=== PATIENT | female | born 1945 | race Caucasian/White ===

== ENCOUNTER 2023-01-04 03:39 | Inpatient (IN) ==
[2023-01-04 04:16] LABS: iSTAT Arterial Blood Gas HCO3 24 meg/L (19-24); iSTAT Arterial Blood Gas pCO2 61 mmHg (35-46); iSTAT Arterial Blood Gas pO2 113 mmHg (80-95); iSTAT Carbon Dioxide 26 mmol/L (24-31); iSTAT Hematocrit 23 % (37-47); iSTAT Hemoglobin 7.8 g/dl (12.0-16.0); iSTAT Potassium 6.2 mmol/L (3.3-5.0); iSTAT Sodium 127 mmol/L (135-144)
--- NOTE | 2023-01-04 04:56 | Emergency Department Note ---
Impression & Plan Respiratory failure, Acute renal failure (ARF), Acute hyperkalemia, Anemia, GI bleed Admit to the [facility]ICU ED Provider Note NAME: LENI LESTER AGE: 77 SEX: F ARRIVES VIA: Ambulance INFORMANT: EMS ED PROVIDER(S): Analisa Flowers DO CHIEF COMPLAINT: Respiratory failure PLAN: Disposition: Admit to the ICU-[facility] group Condition: Critical condition MEDICAL DECISION MAKING: This is a 77-year-old female patient who presents to the emergency department in respiratory failure. The patient is a resident at [facility]. By history, it seems that she may have been diagnosed today with a pneumonia and started on doxycycline. EMS found the patient with an altered mental status and hypoxic. They began bag valve ventilations and transported her here. On presentation, patient was significantly hypoxic but responded nicely to BiPAP support. She appears to have hypercapnic/hypoxic respiratory failure. Laboratory studies reveal evidence of acute renal failure as the patient's creatinine is now 4.85 when her baseline is usually 1.6. Patient is significantly hyperkalemic with a potassium of 6.3. Patient was also found to be profoundly anemic with a hemoglobin of 6.5 when her baseline is normally at 9.4. Hemoccult testing of the stool was positive. Patient was typed and crossed for 2 units of packed red blood cells and transfusion was begun. The patient has multisystem organ involvement. I discussed the case with the [facility] Hospitalist, the SHUN from the critical care team and the senior back end java developer on-call. Triage Nursing notes reviewed and agree with them. History obtained from EMS External medical records reviewed from [facility] Vital Signs: reviewed and remarkable for tachycardia and tachypnea Differential diagnosis: Hypercarbic respiratory failure, cardiac ischemia, pneumonia, A-fib with RVR, acute renal failure, sepsis postobstructive uropathy, COVID-19, anemia ER treatment provided: surveillance system monitor IV normal saline bolus Twelve-lead EKG BiPAP to support O2 saturations greater than 90%. Transfusion of packed red blood cells IV azithromycin Diagnostics interpreted by me: ECG: Atrial flutter with a rapid ventricular response at a rate of 124. There is a poor baseline of this EKG. It is difficult to interpret Repeat ECG: Normal sinus rhythm at a rate of [address] segment elevation in leads II, 3, aVF, V5, V6-concerning for STEMI Cardiac Monitoring: Atrial fibrillation at a rate of 124 Laboratory studies: See below Imaging studies: As per my independent interpretation Portable chest x-ray: Cardiomegaly with a left lower lobe opacity consistent with pneumonia CT scan of the brain: See radiology report CT scan of the chest: See radiology report CT scan of the abdomen/pelvis: See radiology Consultation: Critical care medicine; [facility] Hospitalist; [facility] cardiology HPI: 77/F arrives for evaluation of respiratory distress. According to EMS, the patient had been diagnosed at [facility] earlier today with pneumonia and was started on doxycycline. Staff found the patient to be slightly confused and having increasing respiratory difficulty this evening. [facility] to [facility]. Upon their arrival they found the patient confused with an O2 saturation in the 60s. They began to use a BVM to ventilate the patient. PAST MEDICAL HISTORY:Atrial fibrillation, chronic kidney disease, depression, mood disorder, COPD, CHF type 2 diabetes, obesity PAST SURGICAL HISTORY:See Below FAMILY HISTORY:See Below SOCIAL HISTORY:See Below HOME MEDICATIONS:See list ALLERGIES:See list VITALS:See Below PHYSICAL EXAMINATION: General: The patient was able to answer some questions but seemed to be slightly confused. HEENT: Head - normocephalic and atraumatic. Pupils are equal, round, and reactive to light. Extraocular eye muscles are intact, and sclera are anicteric. Nose - moist nasal mucosa without discharge. Mouth - moist buccal mucosa. Oropharynx is nonerythematous and there is no tonsillar exudate or edema noted. Neck: Supple; no JVD, nuchal rigidity, cervical lymphadenopathy, or auscultated bruits. Heart: Irregularly irregular rhythm with a tachycardic rate there is a normal S1 and S2 with no murmurs, clicks, or gallops appreciated. Lungs: Diminished breath sounds at both lung bases Abdomen: Soft, completely nontender, nondistended, with good bowel sounds. There are no palpable pulsatile masses or hepatosplenomegaly. There is no guarding, rigidity, or rebound noted. Extremities: Lower extremity edema bilaterally Skin: warm and dry with good turgor and no rashes. ED COURSE: Times/Reassessments: 340 the patient was evaluated in room B1. A limited history and complete physical was performed. Patient was placed on BiPAP. Laboratory studies were drawn as above. A portable chest x-ray was obtained. A septic protocol was performed. A twelve-lead EKG was obtained. There was some concern there was a left lower lobe pneumonia as diagnosed earlier today and the patient was treated with IV azithromycin as she has multiple other allergies to antibiotics. The patient was bolused with 500 cc of normal saline solution. Her Gifford catheter was not draining and was replaced and began to drain a large amount of urine. Nursing staff attempted to contact the patient's who is her power of assistant county attorney. Patient was noted to be anemic and was typed and crossed for 2 units of packed red blood cells. Nursing staff performed a rectal exam which was Hemoccult negative. Nursing staff noted that the patient converted out of atrial fibrillation into a normal sinus rhythm so they repeated her EKG. This showed evidence of ST segment elevation in the inferior and lateral leads. I contacted Dr. Ruby from cardiology. He presented to the emergency department and ordered a bedside echocardiogram. I have personally spent greater than 120 minutes of critical care time in the direct management of this patient. This includes bedside care, interpretation of diagnostic studies, and testing, discussion with consultants, patient, and family members, and other required patient management activities. This 120 minutes is in excess of all separately billable procedures. Analisa Flowers, Past Med/Surg History Medical History Anemia Atherogenic dyslipidemia Benign essential hypertension Chronic indwelling Gifford catheter Combined systolic and diastolic congestive heart failure COPD (chronic obstructive pulmonary disease) PAF (paroxysmal atrial fibrillation) Type 2 diabetes mellitus Social History Smoking Status: Former smoker Second Hand Exposure: No; Do You Dip or Chew Tobacco: No; Hx Alcohol Use: No Hx Substance Use: No Preferred Language: Tristanian Communication Ability: Effective Beliefs That Will Affect Care: None Current Living Situation: Halfway Current Living Situation Comment: [place] Feels Safe at Home: Yes Safety Concerns: Feels Safe At This Time Assistive Devices: Glasses and Other Assistive Devices Comment: robe Allergies Allergies Allergy/AdvReac Type Severity Reaction Status Date / Time ciprofloxacin Allergy Unknown Unknown Verified 01/04/23 10:39 lorazepam Allergy Unknown Unknown Verified 01/04/23 10:39 Penicillins Allergy Unknown Unknown Verified 01/04/23 10:39 Home Meds Home Medications Medication Instructions Recorded Confirmed acetaminophen 650 mg 650 mg PO Q8H PRN Pain 01/04/23 01/04/23 tablet,extended release bisacodyl 5 mg tablet 15 mg PO HS 01/04/23 01/04/23 buprenorphine 4 mg-naloxone 1 mg 2 film sublingual DAILY 01/04/23 01/04/23 sublingual film (Suboxone) clonidine 0.1 mg/24 hr weekly 0 mg topical TID PRN Back Pain 01/04/23 01/04/23 transdermal patch dicyclomine 20 mg tablet 20 mg PO TID PRN Indigestion 01/04/23 01/04/23 diphenhydramine HCl 25 mg capsule 25 mg PO Q6H PRN Allergy Symptoms 01/04/23 01/04/23 (Benadryl) docusate sodium 100 mg capsule 100 mg PO DAILY 01/04/23 01/04/23 hydroxyzine pamoate 50 mg capsule 50 mg PO TID PRN Anxiety 01/04/23 01/04/23 (Vistaril) loratadine 10 mg tablet (Claritin) 10 mg PO DAILY PRN Allergy Symptoms 01/04/23 01/04/23 multivitamin 1 tab PO QAM 01/04/23 01/04/23 promethazine 25 mg tablet 25 mg PO Q6H PRN Pain 01/04/23 01/04/23 quetiapine 50 mg tablet (Seroquel) 75 mg PO HS 01/04/23 01/04/23 trazodone 150 mg tablet 150 mg PO HS 01/04/23 01/04/23 Results & Data (ED) Vital Signs Vital Signs - 24 hr 01/04/23 08:49 01/04/23 08:30 01/04/23 08:31 Temperature 35.4 C L Temperature Source Rectal Pulse Rate 87 86 Pulse Rate from SpO2 Sensor 86 Respiratory Rate 20 16 Blood Pressure 103/66 110/68 Blood Pressure Mean 78 82 Pulse Oximetry 93 95 01/04/23 08:31 01/04/23 08:45 01/04/23 08:46 Temperature Temperature Source Pulse Rate 86 86 Pulse Rate from SpO2 Sensor 86 87 Respiratory Rate 14 24 Blood Pressure 103/66 Blood Pressure Mean 78 Pulse Oximetry 95 95 01/04/23 08:46 01/04/23 09:00 01/04/23 09:01 Temperature 35.6 C L Temperature Source Pulse Rate 84 84 Pulse Rate from SpO2 Sensor 85 84 Respiratory Rate 27 H 16 Blood Pressure 101/64 Blood Pressure Mean 76 Pulse Oximetry 95 95 01/04/23 09:01 Temperature 35.6 C L Temperature Source Pulse Rate 94 H Pulse Rate from SpO2 Sensor 84 Respiratory Rate 21 Blood Pressure Blood Pressure Mean Pulse Oximetry 93 Laboratory Data 01/04/23 04:23 01/04/23 04:23 Lab Results 01/04/23 01/04/23 01/04/23 Range/Units 04:02 04:23 04:23 WBC 19.19 H (4.8-10.8) K/ul RBC 2.43 L (4.20-5.40) M/uL Hgb 6.5 L* (12.0-16.0) g/dl POC Hgb 7.8 L (12.0-16.0) g/dl Hct 21.3 L (37.0-47.0) % POC Hct 23 L (37-47) % MCV 87.7 (80.0-100.0) fL MCH 26.7 (25.0-34.0) pg MCHC 30.5 L (32.0-36.0) g/dL RDW Std Deviation 53.6 H (36.4-46.3) fL RDW Coeff of Denny 16.8 H (11.5-14.5) % Plt Count 570 H (130-400) K/uL MPV 9.7 (9.4-12.4) fL Immature Gran % (Auto) 4.5 % Neut % (Auto) 88.6 % Lymph % (Auto) 2.6 % [place] % (Auto) 4.2 % Eos % (Auto) 0.0 % Baso % (Auto) 0.1 % Neut # (Auto) 17.01 H (1.40-6.50) K/uL Lymph # (Auto) 0.50 L (1.2-3.4) K/uL [place] # (Auto) 0.80 H (0.11-0.59) K/uL Eos # (Auto) 0.00 (0-0.50) K/uL Baso # (Auto) 0.01 (0-0.2) K/uL Immature Gran # (Auto) 0.87 H (0.01-0.20) K/uL Absolute Nucleated RBC 0.30 H (0-0.12) K/uL Nucleated RBC % (auto) 1.6 % Hypochromasia Present Echinocytes 1+ PT (9.0-12.0) Seconds INR (0.9-1.1) APTT (21.0-31.0) Seconds PTT Ratio POC pH 7.20 L (7.35-7.45) POC pCO2 61 H (35-46) mmHg POC pO2 113 H (80-95) mmHg POC HCO3 24 (19-24) terry/L POC Total CO2 26 (24-31) mmol/L POC Base Excess -4.0 (-9-1.8) terry/L POC ABG O2 Sat 97.0 H (90-95) % POC Sodium 127 L (135-144) mmol/L Sodium 129 L (136-145) mmol/L POC Potassium 6.2 H* (3.3-5.0) mmol/L Potassium 6.3 H* (3.5-5.1) mmol/L Chloride 91 L (98-107) mmol/L Carbon Dioxide 23 (21-32) mmol/L Anion Gap 15 H (3-11) BUN 138 H (6-23) mg/dl Creatinine 4.85 H* (0.6-1.2) mg/dl Est Cr Clr Drug Dosing Not Reportable Est GFR ( Amer) 9.2 ml/min Est GFR (Non-Af Amer) 7.9 ml/min BUN/Creatinine Ratio 28.5 H (10-20) Glucose 151 H (70-99(Fasting)) mg/dl Lactate (0.4-2.0) mmol/L Calcium 9.0 (8.5-10.1) mg/dl Total Bilirubin 0.7 (0.2-1.0) mg/dl AST 399 H (13-39) U/L ALT 1041 H (7-52) U/L Alkaline Phosphatase 219 H (34-104) U/L Troponin I High Sens 16.9 H (0-14) pg/ml Total Protein 8.0 (6.0-8.3) gm/dl Albumin 3.6 (3.4-5.0) gm/dl Globulin 4.4 H (2.5-4.0) gm/dl Albumin/Globulin Ratio 0.8 L (0.9-2) Urine Color Urine Appearance (Clear) Urine pH (4.5-7.5) Ur Specific [place] (1.000-1.030) Urine Protein (Negative) Urine Glucose (UA) (Negative) Urine Ketones (Negative) Urine Blood (Negative) Urine Nitrite (Negative) Urine Bilirubin (Negative) Urine Urobilinogen (Negative) Ur Leukocyte Esterase (Negative) Urine WBC (Auto) (0-5) /hpf Urine RBC (Auto) (0-4) /hpf U Hyaline Cast (Auto) (0-5) /lpf U Epithel Cells (Auto) (0-5) /lpf Urine Bacteria (Auto) (Negative) Urine Yeast (None Prsent) SARS-CoV-2 (PCR) (Negative) Influenza Type A (PCR) (Neg) Influenza Type B (PCR) (Neg) RSV (RT-PCR) (Neg) Blood Type Blood Type Recheck Antibody Screen Crossmatch 01/04/23 01/04/23 01/04/23 Range/Units 04:23 04:26 04:41 WBC (4.8-10.8) K/ul RBC (4.20-5.40) M/uL Hgb (12.0-16.0) g/dl POC Hgb (12.0-16.0) g/dl Hct (37.0-47.0) % POC Hct (37-47) % MCV (80.0-100.0) fL MCH (25.0-34.0) pg MCHC (32.0-36.0) g/dL RDW Std Deviation (36.4-46.3) fL RDW Coeff of Denny (11.5-14.5) % Plt Count (130-400) K/uL MPV (9.4-12.4) fL Immature Gran % (Auto) % Neut % (Auto) % Lymph % (Auto) % [place] % (Auto) % Eos % (Auto) % Baso % (Auto) % Neut # (Auto) (1.40-6.50) K/uL Lymph # (Auto) (1.2-3.4) K/uL [place] # (Auto) (0.11-0.59) K/uL Eos # (Auto) (0-0.50) K/uL Baso # (Auto) (0-0.2) K/uL Immature Gran # (Auto) (0.01-0.20) K/uL Absolute Nucleated RBC (0-0.12) K/uL Nucleated RBC % (auto) % Hypochromasia Echinocytes PT 13.3 H (9.0-12.0) Seconds INR 1.3 H (0.9-1.1) APTT 32.8 H (21.0-31.0) Seconds PTT Ratio 1.2 POC pH (7.35-7.45) POC pCO2 (35-46) mmHg POC pO2 (80-95) mmHg POC HCO3 (19-24) terry/L POC Total CO2 (24-31) mmol/L POC Base Excess (-9-1.8) terry/L POC ABG O2 Sat (90-95) % POC Sodium (135-144) mmol/L Sodium (136-145) mmol/L POC Potassium (3.3-5.0) mmol/L Potassium (3.5-5.1) mmol/L Chloride (98-107) mmol/L Carbon Dioxide (21-32) mmol/L Anion Gap (3-11) BUN (6-23) mg/dl Creatinine (0.6-1.2) mg/dl Est Cr Clr Drug Dosing Est GFR ( Amer) ml/min Est GFR (Non-Af Amer) ml/min BUN/Creatinine Ratio (10-20) Glucose (70-99(Fasting)) mg/dl Lactate 1.1 (0.4-2.0) mmol/L Calcium (8.5-10.1) mg/dl Total Bilirubin (0.2-1.0) mg/dl AST (13-39) U/L ALT (7-52) U/L Alkaline Phosphatase (34-104) U/L Troponin I High Sens (0-14) pg/ml Total Protein (6.0-8.3) gm/dl Albumin (3.4-5.0) gm/dl Globulin (2.5-4.0) gm/dl Albumin/Globulin Ratio (0.9-2) Urine Color Urine Appearance (Clear) Urine pH (4.5-7.5) Ur Specific [place] (1.000-1.030) Urine Protein (Negative) Urine Glucose (UA) (Negative) Urine Ketones (Negative) Urine Blood (Negative) Urine Nitrite (Negative) Urine Bilirubin (Negative) Urine Urobilinogen (Negative) Ur Leukocyte Esterase (Negative) Urine WBC (Auto) (0-5) /hpf Urine RBC (Auto) (0-4) /hpf U Hyaline Cast (Auto) (0-5) /lpf U Epithel Cells (Auto) (0-5) /lpf Urine Bacteria (Auto) (Negative) Urine Yeast (None Prsent) SARS-CoV-2 (PCR) NEGATIVE (Negative) Influenza Type A (PCR) Negative (Neg) Influenza Type B (PCR) Negative (Neg) RSV (RT-PCR) Negative (Neg) Blood Type Blood Type Recheck Antibody Screen Crossmatch 01/04/23 01/04/23 01/04/23 Range/Units 05:10 05:15 05:27 WBC (4.8-10.8) K/ul RBC (4.20-5.40) M/uL Hgb (12.0-16.0) g/dl POC Hgb (12.0-16.0) g/dl Hct (37.0-47.0) % POC Hct (37-47) % MCV (80.0-100.0) fL MCH (25.0-34.0) pg MCHC (32.0-36.0) g/dL RDW Std Deviation (36.4-46.3) fL RDW Coeff of Denny (11.5-14.5) % Plt Count (130-400) K/uL MPV (9.4-12.4) fL Immature Gran % (Auto) % Neut % (Auto) % Lymph % (Auto) % [place] % (Auto) % Eos % (Auto) % Baso % (Auto) % Neut # (Auto) (1.40-6.50) K/uL Lymph # (Auto) (1.2-3.4) K/uL [place] # (Auto) (0.11-0.59) K/uL Eos # (Auto) (0-0.50) K/uL Baso # (Auto) (0-0.2) K/uL Immature Gran # (Auto) (0.01-0.20) K/uL Absolute Nucleated RBC (0-0.12) K/uL Nucleated RBC % (auto) % Hypochromasia Echinocytes PT (9.0-12.0) Seconds INR (0.9-1.1) APTT (21.0-31.0) Seconds PTT Ratio POC pH (7.35-7.45) POC pCO2 (35-46) mmHg POC pO2 (80-95) mmHg POC HCO3 (19-24) terry/L POC Total CO2 (24-31) mmol/L POC Base Excess (-9-1.8) terry/L POC ABG O2 Sat (90-95) % POC Sodium (135-144) mmol/L Sodium (136-145) mmol/L POC Potassium (3.3-5.0) mmol/L Potassium (3.5-5.1) mmol/L Chloride (98-107) mmol/L Carbon Dioxide (21-32) mmol/L Anion Gap (3-11) BUN (6-23) mg/dl Creatinine (0.6-1.2) mg/dl Est Cr Clr Drug Dosing Est GFR ( Amer) ml/min Est GFR (Non-Af Amer) ml/min BUN/Creatinine Ratio (10-20) Glucose (70-99(Fasting)) mg/dl Lactate (0.4-2.0) mmol/L Calcium (8.5-10.1) mg/dl Total Bilirubin (0.2-1.0) mg/dl AST (13-39) U/L ALT (7-52) U/L Alkaline Phosphatase (34-104) U/L Troponin I High Sens (0-14) pg/ml Total Protein (6.0-8.3) gm/dl Albumin (3.4-5.0) gm/dl Globulin (2.5-4.0) gm/dl Albumin/Globulin Ratio (0.9-2) Urine Color Dark Yellow Urine Appearance Cloudy A (Clear) Urine pH 5.5 (4.5-7.5) Ur Specific [place] 1.015 (1.000-1.030) Urine Protein 1+ H (Negative) Urine Glucose (UA) Negative (Negative) Urine Ketones Negative (Negative) Urine Blood 3+ H (Negative) Urine Nitrite Negative (Negative) Urine Bilirubin Negative (Negative) Urine Urobilinogen Negative (Negative) Ur Leukocyte Esterase 2+ H (Negative) Urine WBC (Auto) >30 H (0-5) /hpf Urine RBC (Auto) 10-30 H (0-4) /hpf U Hyaline Cast (Auto) 5-10 H (0-5) /lpf U Epithel Cells (Auto) 0-5 (0-5) /lpf Urine Bacteria (Auto) 1+ H (Negative) Urine Yeast Budding w/ Hyphae A (None Prsent) SARS-CoV-2 (PCR) (Negative) Influenza Type A (PCR) (Neg) Influenza Type B (PCR) (Neg) RSV (RT-PCR) (Neg) Blood Type B Positive Blood Type Recheck B Positive Antibody Screen NEGATIVE Crossmatch See Detail Administered Medications Pantoprazole Sodium 40 mg/ (Dextrose) 100 mls @ 20 mls/hr IV Q5H [facility]SIE Stop: 02/03/23 11:29 Last Admin: 01/05/23 09:13 Dose: 8 mg/hr, 20 mls/hr Documented By: Admin: 01/05/23 05:29 Dose: 20 mls/hr Documented By: Infusion: 01/05/23 05:15 Dose: 8 mg/hr, 20 mls/hr Documented By: Admin: 01/04/23 23:15 Dose: 8 mg/hr, 20 mls/hr Documented By: Infusion: 01/04/23 22:33 Dose: 8 mg/hr, 20 mls/hr Documented By: Admin: 01/04/23 17:33 Dose: 8 mg/hr, 20 mls/hr Documented By: Infusion: 01/04/23 17:33 Dose: 8 mg/hr, 20 mls/hr Documented By: Admin: 01/04/23 12:44 Dose: 8 mg/hr, 20 mls/hr Documented By: LIBBY Azithromycin 500 mg/ Dextrose 255 mls @ 125 mls/hr IV Q24H [facility] Stop: 01/08/23 07:59 Last Admin: 01/05/23 09:13 Dose: 125 mls/hr Documented By: LIBBY Daptomycin 500 mg/ Syringe 10 mls @ 5 mls/min IV Q48H CH[facility]ISSIE; Protocol Stop: 01/14/23 11:59 Last Admin: 01/04/23 13:17 Dose: 5 mls/min Documented By: LIBBY Cefepime HCl 500 mg/ Syringe 5 mls @ 5 mls/min IV Q24H [facility]ISSIE; Protocol Stop: 01/15/23 08:59 Last Admin: 01/05/23 09:13 Dose: 5 mls/min Documented By: LIBBY Insulin Aspart (Insulin Aspart Per Unit) 0 units SC Q6 [facility] Stop: 02/03/23 11:59 Last Admin: 01/05/23 05:55 Dose: Not Given Documented By: Admin: 01/05/23 00:04 Dose: Not Given Documented By: Admin: 01/04/23 19:25 Dose: Not Given Documented By: Admin: 01/04/23 13:23 Dose: 3 units Documented By: LIBBY Co-signed By: MAGGIE Discontinued Medications Dextrose (Dextrose 50% 50 Ml Syringe) 50 ml IV NOW STA Stop: 01/04/23 09:13 Last Admin: 01/04/23 09:36 Dose: 50 ml Documented By: MARIO Azithromycin 500 mg/ Dextrose 255 mls @ 125 mls/hr IV ONE ONE Stop: 01/04/23 07:35 Last Infusion: 01/04/23 09:58 Dose: 0 mls/hr Documented By: Admin: 01/04/23 06:05 Dose: 125 mls/hr Documented By: KELLIE Insulin Human Regular 10 units (/ Syringe) 9.9 mls @ 3 mls/sec IV NOW ONE Stop: 01/04/23 09:46 Last Admin: 01/04/23 09:58 Dose: 3 mls/sec Documented By: MARIO Co-signed By: FREDY Cefepime HCl (Maxipime) 20 mls @ 5 mls/min IV NOW STA; Protocol Stop: 01/04/23 10:19 Last Admin: 01/04/23 10:26 Dose: 5 mls/min Documented By: MARIO Sodium Chloride (Nss 1000ml) 1,000 mls @ 100 mls/hr IV .Q10H [facility]E Stop: 01/05/23 00:23 Last Infusion: 01/05/23 07:11 Dose: 0 mls/hr Documented By: Admin: 01/04/23 23:15 Dose: 100 mls/hr Documented By: Infusion: 01/04/23 23:15 Dose: 100 mls/hr Documented By: Admin: 01/04/23 16:18 Dose: 100 mls/hr Documented By: Admin: 01/04/23 12:14 Dose: Not Given Documented By: LIBBY Calcium Gluconate 1,000 mg/ (Dextrose) 60 mls @ 240 mls/hr IV NOW ONE Stop: 01/04/23 10:44 Last Infusion: 01/04/23 11:49 Dose: 0 mls/hr Documented By: Admin: 01/04/23 11:18 Dose: 240 mls/hr Documented By: LIBBY Pantoprazole Sodium 80 mg/ (Dextrose) 120 mls @ 480 mls/hr IV TODAY@1115 [facility] Stop: 01/04/23 11:29 Last Infusion: 01/04/23 13:54 Dose: 0 mls/hr Documented By: Admin: 01/04/23 12:27 Dose: 480 mls/hr Documented By: LIBBY Sodium Chloride (Nss 1000ml) 250 mls @ 999 mls/hr IV .Q16M ONE Stop: 01/04/23 19:03 Last Infusion: 01/04/23 19:33 Dose: 0 mls/hr Documented By: Admin: 01/04/23 19:10 Dose: 999 mls/hr Documented By: LIBBY Insulin Aspart (Insulin Aspart Per Unit) 0 units SC 0000,0400 [facility] Stop: 01/05/23 04:01 Last Admin: 01/05/23 00:05 Dose: Not Given Documented By: SILVESTRE Insulin Glargine (Lantus Per Unit Charge) 10 units SQ NOW ONE Stop: 01/04/23 13:01 Last Admin: 01/04/23 13:25 Dose: 10 units Documented By: LIBBY Co-signed By: MAGGIE Insulin Human Regular (Novolin-R Insulin Per Unit Charge) Confirm Administered Dose 10 units .ROUTE .STK-MED ONE Stop: 01/04/23 09:35 Last Admin: 01/04/23 09:37 Dose: Not Given Documented By: MARIO Metoprolol Tartrate (Metoprolol Tartrate 1 Mg/Ml Vial) 5 mg IV NOW STA Stop: 01/05/23 07:40 Last Admin: 01/05/23 07:48 Dose: 5 mg Documented By: LIBBY Miscellaneous (Patient's Height &/Or Weight Needed) 1 each N/A Q2H [facility] Stop: 02/03/23 11:14 Last Admin: 01/04/23 14:42 Dose: 1 each Documented By: LCS Discharge Plan Visit Data Chief Complaint: Respiratory Distress ED Provider: Analisa Flowers Discharge Problem: Respiratory failure, Acute renal failure (ARF), Acute hyperkalemia, Anemia, GI bleed Patient Disposition: Admitted As Inpatient Discharge Instructions Interventions: ED Discharge Assessment Last Done: 01/04/23 11:00 Respiratory failure Qualifiers: Chronicity: acute Respiratory failure complication: hypoxia and hypercapnia Qualified Code(s): J96.01 - Acute respiratory failure with hypoxia Acute renal failure (ARF) Qualifiers: Acute renal failure type: unspecified Qualified Code(s): N17.9 - Acute kidney failure, unspecified Anemia Qualifiers: Anemia type: unspecified type Qualified Code(s): D64.9 - Anemia, unspecified GI bleed Qualifiers: GI bleed type/associated pathology: unspecified gastrointestinal hemorrhage type Qualified Code(s): K92.2 - Gastrointestinal hemorrhage, unspecified
[2023-01-04 05:01] LABS: Basophils # (auto) 0.01 K/uL (0-0.2); Basophils % (auto) 0.1 %; Echinocytes 1+; Hematocrit (blood only) 21.3 % (37.0-47.0); Hemoglobin 6.5 g/dl (12.0-16.0); Hypochromasia Present; Immature Granulocytes # (auto) 0.87 K/uL (0.01-0.20); Immature Granulocytes % (auto) 4.5 %; Lymphocytes % (auto) 2.6 %; Mean Corpuscular Hemoglobin 26.7 pg (25.0-34.0); Mean Corpuscular Hgb Conc 30.5 g/dL (32.0-36.0); Mean Corpuscular Volume 87.7 fL (80.0-100.0); Mean Platelet Volume 9.7 fL (9.4-12.4); Monocytes % (auto) 4.2 %; Neutrophils # (auto) 17.01 K/uL (1.40-6.50); Neutrophils % (auto) 88.6 %; Nucleated RBC % (auto) 1.6 %; Platelet Count 570 K/uL (130-400); RDW Coefficient of Variation 16.8 % (11.5-14.5); RDW Standard Deviation 53.6 fL (36.4-46.3); Red Blood Count 2.43 M/uL (4.20-5.40); White Blood Count 19.19 K/ul (4.8-10.8)
[2023-01-04] MEDS ORDERED: SODIUM CHLORIDE 0.9% 250 ML IV PRN (05:10)
[2023-01-04 05:17] LABS: Alanine Aminotransferase 1041 U/L (7-52); Albumin Globulin Ratio 0.8 (0.9-2); Albumin Level 3.6 gm/dl (3.4-5.0); Alkaline Phosphatase 219 U/L (34-104); Anion Gap 15 (3-11); Aspartate Aminotransferase 399 U/L (13-39); BUN Creatinine Ratio 28.5 (10-20); Bilirubin,Total 0.7 mg/dl (0.2-1.0); Blood Urea Nitrogen 138 mg/dl (6-23); Carbon Dioxide 23 mmol/L (21-32); Chloride 91 mmol/L (98-107); Est GFR (African American) 9.2 ml/min; Est GFR (Non-African American) 7.9 ml/min; Globulin 4.4 gm/dl (2.5-4.0); Glucose 151 mg/dl (70-99(Fasting)); Potassium 6.3 mmol/L (3.5-5.1); Sodium 129 mmol/L (136-145); Troponin I High Sensitivity 16.9 pg/ml (0-14)
[2023-01-04 05:24] LABS: Appearance Urine Cloudy (Clear); Bacteria Urine Automated 1+ (Negative); Bilirubin Urine Negative (Negative); Blood Urine 3+ (Negative); Color Urine Dark Yellow; Epithelial Cell Urine Auto 0-5 /lpf (0-5); Glucose Urine UA Negative (Negative); Ketones Urine Negative (Negative); Leukocyte Esterase Urine 2+ (Negative); Nitrite Urine Negative (Negative); Protein Urine 1+ (Negative); Specific Gravity Urine 1.015 (1.000-1.030); Urobilinogen Urine Negative (Negative); WBC Urine Automated >30 /hpf (0-5); pH Urine 5.5 (4.5-7.5)
[2023-01-04] MEDS ORDERED: AZITHROMYCIN 500 MG in DEXTROSE 5% 250 ML IV ONE (05:33)
[2023-01-04 06:07] LABS: Influenza A virus by PCR Negative (Neg); Influenza B virus by PCR Negative (Neg); RSV by PCR Negative (Neg); SARS CoV2 RNA(COVID-19) Ceph NEGATIVE (Negative)
--- NOTE | 2023-01-04 07:58 | CT Scan Report ---
CT head/brain wo con CLINICAL HISTORY: altered ms Technique: Contiguous axial CT images of the head were acquired from the base of the skull to the ines patricia without intravenous contrast administration. Images were viewed in brain, subdural and bone [facility]. Automated dose lowering techniques and/or adjustment according to patient size were utilized for this exam. Comparison: None available at the time of this dictation. Findings: Exam is limited by patient motion. Areas of decreased attenuation are present in the periventricular and subcortical white matter bilaterally consistent with small vessel ischemic disease. Generalized c erebral atrophy with commensurate enlargement of the ventricles, sulci, and cisterns is also present. There is no acute intracranial hemorrhage or evidence of acute territorial infarction. No shift of t he midline structures, mass effect, or extra-axial abnormalities are shown. Atherosclerotic calcific ations are present in the intracranial segments of the internal carotid arteries. Imaged portions of the paranasal sinuses and mastoid air cells are clear. The orbits appear normal. There are no acute fractures of the calvaria. Scalp swelling is seen in the left frontal soft tissue s. Impression: No acute intracranial hemorrhage or skull fractures. Scalp swelling is seen in the left frontal soft tissues. ACT 112: Negative or not required by law. Electronically signed by: Renny Mccall M.D. 01/04/2023 7:57 AM
--- NOTE | 2023-01-04 08:10 | CT Scan Report ---
CT chest diagnostic wo con CLINICAL HISTORY: Respiratory Failure TECHNIQUE: Multidetector row helical CT of the chest was performed. Coronal and sagittal reformations were obtained. Automated dose lowering techniques and/or adjustment according to patient size were u tilized for this exam. Comparison: None available at the time of this dictation. FINDINGS: Lungs and pleura: Atelectasis is seen most prominent in the left lower lobe. There is a 3 mm nodule i n the left upper lobe (series 10 image 82). Heart and pericardium: Mitral annular calcifications are seen. There is a small pericardial effusion. Vessels: The pulmonary trunk is enlarged measuring 38 mm. Mild atherosclerotic disease is seen. Mediastinum and coby: Subcentimeter lymph nodes are seen. Chest wall and lower neck: Unremarkable. Abdomen: Unremarkable. Bones: Degenerative changes in the thoracic spine. IMPRESSION: 1. Atelectasis is seen with near collapse of the left lower lobe. 2. Cardiomegaly and pulmonary hypertension. ACT 112: Negative or not required by law. Electronically signed by: Renny Mccall M.D. 01/04/2023 8:08 AM
--- NOTE | 2023-01-04 08:18 | CT Scan Report ---
CT abd pelvis wo con CLINICAL HISTORY: renal failure TECHNIQUE: Helical axial images of the abdomen and pelvis were obtained. Automated dose lowering tech niques and/or adjustment according to patient size were utilized for this exam. This exam was perfor med without intravenous contrast. CT DOSE: 3140.52 mGy.cm COMPARISON: None available at the time of this dictation. FINDINGS: Lower chest: For findings above the diaphragm, please see CT chest performed same day. Liver: Unremarkable. No focal lesions are seen. Gallbladder and biliary tree: No calcified gallstones. Normal caliber wall. No intra- or extrahepatic biliary ductal dilation. Pancreas: Unremarkable, no focal lesions. Spleen: Unremarkable. Adrenals: Unremarkable. Kidneys and ureters: There is a 4 mm stone in the right proximal ureter. No significant hydronephrosi s is seen, there is mild prominence of the proximal ureter. Nonobstructive stones are seen bilaterall y. Bladder: Gifford catheter is seen. Reproductive organs: Unremarkable. Bowel: Diverticulosis is seen without evidence of diverticulitis. Lymph nodes Retroperitoneal: Subcentimeter lymph nodes are noted. Pelvic: Unremarkable. Mesenteric: Unremarkable. Peritoneum: Normal. Vessels: Atherosclerotic calcifications are seen. Abdominal wall: Right fat-containing inguinal hernia. Bones: Degenerative changes in the visualized spine. IMPRESSION: Stone in the right proximal ureter measuring 4 mm. There may be a small amount of hydroureter however no hydronephrosis is seen. Nonobstructive nephrolithiasis is otherwise noted. ACT 112: Negative or not required by law. Electronically signed by: Renny Mccall M.D. 01/04/2023 8:16 AM
--- NOTE | 2023-01-04 08:31 | Cardiology Consultation ---
Date of Consultation January 04, 2023 Assessment & Plan (1) Abnormal EKG: Initial abnormality was atrial flutter with variable block or A-fib coarse. No ischemic changes. Despite this going on for many hours her troponin is just above upper cutoff of normal. Do not have any follow-up troponin levels at this point. All 3 of her EKGs were performed after conversion to sinus rhythm show borderline ST elevations in leads I, 2, aVF, with the initial copies also demonstrating similar borderline elevations in V4 through V6. There are no reciprocal ischemic EKG changes. The final EKG also lacks any significant ST elevations in the precordial leads. There is slight NE depression as well. Taken as a whole, there is no evolution in the EKG which is suggestive that this represents an acute ST elevation MA. She has a number of potential reasons for these changes including hyperkalemia, potentially FLOOR SWEEPER pathology, acid-base imbalance, profound anemia and what ever baseline cardiac problems exist (we do not have old EKGs for comparison). She is currently hemodynamically stable. She has a number of contraindications to cardiac catheterization at this time. Therefore, I will abstain from aggressive management with cardiac catheterization unless she develops cardiogenic shock, significantly worsened ST elevations, or refractory ventricular arrhythmia. We should try to obtain outside cardiac records. A stat echocardiogram was ordered so that we may better understand her EF, wall motion, etc. It seems her clinical presentation is most related to sepsis and hypoxia. As these things improve we will continue to reassess for possible catheterization. (2) Acute respiratory failure: Unclear etiology. Could be pneumonia, heart failure, COPD exacerbation, sepsis, etc. Treatment per pulmonary/critical care medicine. (3) Acute alteration in mental status: Unclear etiology at this point. Await CT scan results. Likely metabolic derangement and sepsis. Treatment per primary team. (4) Acute on chronic combined systolic (congestive) and diastolic (congestive) heart failure: My physical exam I do not appreciate significant amount of volume overload. Certainly could be some in the lungs but she does not have any right-sided symptoms such as JVD or lower extremity edema. Echocardiogram is pending. I will have additional recommendations pending results. Regardless of her volume status, if we believe she is septic we will need to give her fluid and then work to remove that fluid later if necessary. Hold her chronic heart failure medications at this time so as not to compromise her hemodynamic status (Toprol- XL 25 mg daily and Lasix 40 mg daily). She also takes Jardiance 10 mg. This could be given if primary team would like but I do not feel it acutely needs to be given at this time. (5) Acute on chronic renal failure: Not sure what her baseline renal function may be. We will need to obtain the records to determine that. Clearly, with hyperkalemia and elevated BUN and creatinine. If she does have some volume overload in the lungs this may also be secondary to her renal function. Alternatively, if her EF is severely reduced on echocardiogram then worsening renal function may be secondary to poor renal perfusion. Avoid nephrotoxic agents. If she is felt to be hypovolemic or hypotensive (sepsis, bleed, etc.) then IV fluid resuscitation (6) PAF (paroxysmal atrial fibrillation): Now in sinus rhythm. She takes the Xarelto for CVA prophylaxis. Would hold that at this time secondary to profound anemia and potential GI bleed. (7) Anemia: H&H are very low. She does have risk factor for bleed not only GI but potentially intracranial. However, she does not seem to have focal neurologic deficits at this time. CT of the head is pending. Plan is for transfusion. (8) Elevated liver enzymes: This may be secondary to congestion or hypotension. Work-up and management per primary team. (9) Chronic indwelling Gifford catheter: Urinalysis is concerning for infection. However, the Gifford is reported to be chronic. I assume blood cultures will be obtained as well urine culture. Treatment per primary team. (10) Benign essential hypertension: Currently blood pressure is stable and normal. She did have mild hypotension but seems to have responded to some IV fluids. Would not initiate her regular antihypertensive regimen at this time. 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 She is high risk. High intensity statin therapy is recommended. I do not note any statin therapy on her outpatient medication list. Unclear if she has had intolerance or if she declines. Obviously not an acute issue and we will address it as her clinical course evolves. (12) Type 2 diabetes mellitus: Certainly contributes to any metabolic derangement and makes management more difficult. Also makes her high risk for underlying atherosclerosis, renal failure, etc. Treatment per primary team. Plan At this time patient has multiple acute on chronic issues and is not doing well. Awaiting echocardiogram. If there are high risk features including profound reduction in ejection fraction, severe valvular heart disease, or significant wall motion abnormalities then I will be more inclined to cath early rather than later. However, if not then the risk of catheterization with her contrain dications seems to outweigh the anticipated benefit. I will continue to follow her EKG and troponins which may alter my clinical plan in the near future. History of Present Illness Reason for Consultation: Abnormal EKG Requesting Physician: Nadiya Flowers History of Present Illness 77-year-old female from [facility] who presented with respiratory failure and mental status change. Unfortunately, we have very limited medical records on this patient and her mental status precludes detailed review via the patient. Evidently, patient has a history of systolic and diastolic heart failure, COPD on chronic O2, atrial fibrillation, dementia, anemia, and chronic kidney disease. Unclear regarding her prior cardiac work-up at this time. She does not seem to have been evaluated for those issues in this health system and [facility] with any [facility] studies. She previously was followed in the [facility] and likely has medical records with [facility]. Regarding this admission, patient has been experiencing increasing shortness of breath and decreased mental status. She was found to have an oxygen saturation of less than 70% and was started on increased O2 concentration. Eventually, she was on 15 L of nasal cannula oxygen and her O2 increased to 90%. She had a chest x-ray suggesting pneumonia, pleural effusion, and atelectasis. She had been placed on antibiotics as an outpatient. However, her clinical status continued to decline. She was therefore transported to the emergency department in this facility. Here, she was placed on BiPAP. She was found to be in atrial flutter with variable AV block. She had profound anemia, elevated white blood cell count, acute on chronic renal failure, hyperkalemia, elevated liver enzymes, and significant mental status changes. Resuscitative measures have been initiated and the patient has just returned from the CAT scanner where she had a scan of her head, chest, abdomen and pelvis. I was asked to see her because her initial atrial arrhythmia converted to sinus rhythm. On that EKG she had borderline diffuse ST elevations with mild NE depressions and question was if she needed heart catheterization for possible acute MA. After she returned to the emergency department bay from the CAT scanner her mental status seemed to be somewhat improved although she was very somnolent. I asked her if she had any chest discomfort and she said no. I asked her if she was short of breath and she said yes. I asked her if that had been going on for several days and she said no. However, when I asked her if she had prior cardiac problems she did not answer and was asleep again. I asked to obtain another EKG to see if there was any evolution of her borderline EKG changes. Patient History Social History Smoking Status: Unknown if ever smoked Preferred Language: [place] Review of Systems Review of Systems: This is unobtainable because of her mental status change. What is reviewed was obtained via the chart and the questions she was able to verbalize answers to. Physical Exam Constitutional: Elderly morbidly obese chronically ill-appearing female. Eyes: Opens them on command but then closes. Anicteric. ENMT: Facemask in place. Neck: Short, thick, no JVD appreciated. Respiratory: Poor air movement. Diffuse crackles. No wheezing. Cardiovascular: Regular rate and rhythm. S4 gallop. Soft systolic murmur. No edema. Gastrointestinal (Abdomen): Normal active bowel sounds Musculoskeletal: No cyanosis or edema. Skin: Scattered ecchymosis. Pale. Neurologic: Decreased mental status. Does move all 4 extremities voluntarily. Psychiatric: Unable to be assessed. She is somnolent. Results & Data ([facility]) Vital Signs (Past 12 Hours) Vital Signs Temp Pulse Resp BP Pulse Ox O2 Del Method FiO2 01/04/23 08:15 89 18 93 01/04/23 08:14 134/54 L 01/04/23 08:14 88 18 01/04/23 08:01 29 H 94 01/04/23 08:01 135/61 01/04/23 08:00 22 94 01/04/23 07:45 88 19 94 01/04/23 07:45 111/79 01/04/23 07:31 22 95 01/04/23 07:31 129/73 01/04/23 07:30 20 94 01/04/23 07:47 35.9 C L 86 19 111/79 96 01/04/23 07:17 93 H 21 95 01/04/23 07:17 156/116 H 01/04/23 07:15 95 01/04/23 07:14 92 H 17 01/04/23 06:46 87 21 94 01/04/23 06:46 128/97 01/04/23 06:45 88 20 95 01/04/23 07:17 92 H 21 93 45 01/04/23 06:31 99 H 21 94 01/04/23 06:31 99/54 L 01/04/23 06:30 94 H 19 92 01/04/23 06:16 89 21 94 01/04/23 06:16 131/96 01/04/23 06:15 90 26 H 93 01/04/23 06:01 110/80 01/04/23 06:01 64 26 H 92 01/04/23 06:00 96 H 21 93 01/04/23 06:05 87 01/04/23 05:49 104 H 25 H 92 01/04/23 05:49 115/75 01/04/23 05:46 138 H 28 H 94 01/04/23 05:31 120 H 26 H 102/73 94 01/04/23 05:16 126/69 01/04/23 05:16 128 H 25 H 94 01/04/23 05:01 139 H 26 H 98 01/04/23 05:01 109/60 01/04/23 05:00 129 H 22 01/04/23 04:46 124 H 26 H 96 BiPAP 01/04/23 04:46 140/95 01/04/23 03:50 120 H 28 H 97 60 01/04/23 04:30 108 H 29 H 99 BiPAP 01/04/23 04:29 142 H 29 H 99 BiPAP 01/04/23 04:29 120/79 01/04/23 04:15 141 H 22 99 BiPAP 01/04/23 04:00 125 H 30 H 99 BiPAP 01/04/23 04:00 101/80 01/04/23 04:02 100 BiPAP 01/04/23 03:45 118 H 27 H 99 BiPAP 01/04/23 03:45 112/70 01/04/23 04:00 36.3 C L 01/04/23 03:53 137 H 01/04/23 03:46 125 H 25 H 112/70 88 L Room Air PG Care Time/CCT Total # of Minutes Spent Total Time Spent with Patient: Total time spent is greater than 50% in coordination of care (as documented) at patient's floor/unit and/or counseling patient: Note: I have spent 120 minutes in the review of the records, examination of the patient, discussion with patient and the care team, formulation and implementation of a plan of care and all associated documentation. [place] [address] CRITICAL CARE 1ST 30-74M Patient Type New Diagnoses Abnormal EKG R94.31 Acute respiratory failure J96.00 Acute alteration in mental status R41.82 Acute on chronic combined systolic (congestive) and diastolic (congestive) heart failure I50.43 Acute on chronic renal failure N17.9; N18.9 PAF (paroxysmal atrial fibrillation) I48.0 Anemia D64.9 Elevated liver enzymes R74.8 Chronic indwelling Gifford catheter Z97.8 Benign essential hypertension I10 Atherogenic dyslipidemia E78.5 Type 2 diabetes mellitus E11.9 Time Spent (min) 120
--- NOTE | 2023-01-04 08:49 | XRay Report ---
XR chest 1V portable CLINICAL HISTORY: Dyspnea TECHNIQUE: Single frontal radiograph of the chest was obtained. Comparison: None available at the time of this dictation. FINDINGS: No lines and tubes are seen. Cardiomegaly is noted. There is a left retrocardiac opacity and small ri ght lower lung opacity. No evidence of pleural effusion or pneumothorax. IMPRESSION: Bilateral lower lung airspace opacities compatible with atelectasis. ACT 112: Negative or not required by law. Electronically signed by: Renny Mccall M.D. 01/04/2023 8:46 AM
[2023-01-04] MEDS ORDERED: DEXTROSE 50% 50 ML SYRINGE IV STA (09:12)
[2023-01-04] MEDS ORDERED: VANCOMYCIN CONSULT ACTIVE PRN (09:32)
[2023-01-04] MEDS ORDERED: VANCOMYCIN HCL 1,750 MG in SODIUM CHLORIDE 0.9% 500 ML IV ONE (09:32)
[2023-01-04] MEDS ORDERED: NovoLIN-R INSULIN PER UNIT CHARGE ONE (09:34)
[2023-01-04] MEDS ORDERED: INSULIN HUMAN REGULAR PER UNIT 10 UNITS in SYRINGE 9.9 ML IV ONE (09:45)
--- NOTE | 2023-01-04 10:03 | History & Physical Report ---
Date of Service January 04, 2023 Assessment & Plan (1) Acute and chronic respiratory failure with hypoxia: Plan: Patient is on 2 L nasal cannula at baseline, with a history of COPD Presents with worsening shortness of breath, had been on doxycycline for possible pneumonia at outside facility prior to arrival here With hypoxia requiring ultimately BiPAP, with a pH of 7.2 and hypercarbia PCO2 61 CT noncon of the chest shows atelectasis with near collapse of the left lower lobe, no other acute findings Repeat ABG with improvement in CO2 to 55, patient is resting comfortably. Wean as tolerated with a goal O2 sat of 90% given COPD history, with serial ABG Suspect respiratory failure is multifactorial with significant atelectasis with near collapse of the left lower lobe, significant anemia of 6.5, hypercapnia (2) Hypercapnic respiratory failure: Plan: BiPAP as described above (3) Acute on chronic renal failure: Plan: 12/16/2022 creatinine of 1.8, now today with a creatinine of 4.[address] Noncon of the abdomen shows a right renal calculus with mild hydroureter Per ER provider chronic catheter was also not draining on arrival, but now is draining well, with mild improvement in creatinine to 4.6, continue to trend BMP Nephrology consulted and appreciate recommendations: Suspect multifactorial with bladder outlet obstruction which is since resolved, superimposed ATN, sepsis and hemodynamic instability Cautious fluids normal saline 100 cc/h x 1 bag with close monitoring of fluid status given history of heart failure Patient's sisters provided advanced directive stating patient would not desire dialysis should that be necessary (4) Hyperkalemia: Plan: Potassium of 6.2 in the ER this morning, repeat down to 5.6 with placement of Gifford, calcium gluconate, insulin/D50, serial BMP Nephrology consult as described above Avoiding potassium binders in the setting of possible acute GI bleed BiPAP as described above for hypercapnia (5) Sepsis: Plan: Multifactorial, do suspect UTI with infected stone, WBC count elevated at 19 on arrival with hypothermia to 35.9 C Patient has a history of heart failure but will give blood as described above and some maintenance rate IV fluids, did not receive full resuscitative fluids in the ER secondary to other acute concerns Blood and urine cultures collected, will give Dapto/cefepime with renal adjustment for now, most suspicious of urinary tract infection at this time but will continue to monitor for other localizable sources (6) Shock liver: Plan: On admission with ALT predominant transaminitis, elevated alk phos to 200s, no complaints of abdominal pain prior to admission CT abdomen pelvis Noncon without evidence of liver pathology Suspect this is shock liver in the setting of sepsis and hypoperfusion from anemia, transaminitis already improved somewhat on repeat check with blood products and IV fluids Continue to monitor liver function (7) Acute GI bleeding: Plan: Suspected, no report of john bleeding per outside facility, but does have positive Hemoccult here per ER provider Patient has a history of anemia, unknown hemoglobin baseline but recent studies have been around 9.0 2 units of blood transfusing at this time, unable to get in contact with family at time of transfusion, have since discussed with family and they are amenable to blood transfusion Protonix IV daily bolus GI consulted and appreciate recommendations, do not anticipate any acute interve ntions at this time given other comorbidities and critical illness, but may recommend endoscopy in the future if patient stabilizes (8) Symptomatic anemia: Plan: Hemoglobin 6.5 on admission, 2 units of packed red blood cells as described above Repeat H/H following blood products is pending (9) Combined systolic and diastolic congestive heart failure: Plan: History of, do not have any previous records to indicate level of ventricular function prior to today Echocardiogram today 01/04 with normal LVEF, small pericardial effusion without evidence of tamponade, interpreted by Dr. Ruby No evidence of fulminant fluid overload at this time, will give IV fluids for sepsis and ARF at this time and cautious diuresis if absolutely necessary Cardiology is consulted this admission for concern about possible AK given abnormal EKG on admission (borderline ST elevations in leads I, II, aVF), troponins have been stable and very minimally elevated, continue to trend Case personally discussed with Dr. Ruby: Continue to monitor EKGs, suspect clinical presentation is more related to sepsis and hypoxia than ACS (10) PAF (paroxysmal atrial fibrillation): Plan: History of, on Xarelto in the outpatient setting, will hold this in the setting of significant anemia and possible GI bleed We will also hold her beta-harriet at this time Telemetry for ongoing cardiac monitoring (11) Nephrolithiasis: Plan: Urology consulted for obstructive renal stone on the right side, Dr. Blake will follow peripherally until patient either becomes more clinically stable, or shows more definitive signs/symptoms of urosepsis secondary to obstructing stone Other care as described above (12) Complicated UTI (urinary tract infection): Plan: See above (13) Atelectasis: Plan: Patient is generally immobile at baseline, only helps with transfer from bed to wheelchair CT this admission showing atelectasis with near collapse of the left lower lobe (14) COPD (chronic obstructive pulmonary disease): Plan: History of, on 2 L nasal cannula Patient does not have any wheezing, less suspicious of COPD exacerbation at this point and lieu of anemia/sepsis/atelectasis on imaging Wean oxygen as tolerated with a goal SPO2 of ~90% Plan Patient is severely ill, with guarded prognosis in the setting of acute hypoxic and hypercapnic respiratory failure, acute renal failure, suspected shock liver, sepsis, possible acute GI bleed with symptomatic anemia. Case was discussed at length with patient's , however patient's has some element of aphasia and dementia and I was directed to speak with patient's 3 sisters who share decision making in the event that she cannot make decisions for herself. Sisters provided information on patient's advanced directive to this hospital, which indicates patient would not want dialysis, intubation, chest compressions, cardioversion in the event that it should be necessary to prolong her life. This was discussed and confirmed with her sisters. History of Present Illness Chief Complaint: Acute hypoxic respiratory failure, anemia,? GI bleed, acute renal failure, hyperkalemia Primary Care Provider: [facility] 77-year-old female past medical history significant for COPD on 2 L nasal cannula at baseline, paroxysmal A-fib on chronic anticoagulation, chronic indwelling Gifford catheter, history of systolic/diastolic CHF with no previous echocardiograms on file, DM 2 (no known medications per home list), anemia with baseline hemoglobin around 9 presented to the ER from her side for worsening difficulty breathing. In the days leading up to this admission, patient was having some dyspnea and there was concern for pneumonia, patient was put on doxycycline without improvement. In the ER patient was noted to be hypoxic with increased oxygen needs, ultimately requiring BiPAP with good relief of dyspnea. On admission lab work she was noted to have a WBC count of 19.19, hemoglobin 6.5, Hemoccult positive per ER provider, platelets 570, POC ABG with hypercapnia and pH of 7.2, creatinine 4.8 with an elevated potassium of greater than 6, hyponatremia, elevated AST/ALT. Initially, Gifford was not having any output, this improved with replacing Gifford. CT chest performed which showed atelectasis with near collapse of the left lower lobe. CTAP showed right proximal ureteral stone with mild hydroureter. Head CT did not show any acute intracranial hemorrhage or skull fracture, but did show scalp swelling in the left frontal soft tissues. Hospitalist service was consulted for admission for acute renal failure, hyperkalemia, symptomatic anemia, and acute hypoxic respiratory failure Patient is otherwise confused and not answering questions well at this time. I spoke with patient's 3 sisters, who reports that in general she is usually alert and oriented to self and situation, often pleasantly confused, is wheelchair- bound and her helps her with all of her ADLs. Allergies Allergy/AdvReac Type Severity Reaction Status Date / Time ciprofloxacin Allergy Unknown Unknown Verified 01/04/23 10:39 lorazepam Allergy Unknown Unknown Verified 01/04/23 10:39 Penicillins Allergy Unknown Unknown Verified 01/04/23 10:39 Home Medications Medication Instructions Recorded Confirmed Type acetaminophen 650 mg 650 mg PO Q8H PRN Pain 01/04/23 01/04/23 History tablet,extended release bisacodyl 5 mg tablet 15 mg PO HS 01/04/23 01/04/23 History buprenorphine 4 mg-naloxone 1 mg 2 film sublingual DAILY 01/04/23 01/04/23 History sublingual film (Suboxone) clonidine 0.1 mg/24 hr weekly 0 mg topical TID PRN Back Pain 01/04/23 01/04/23 History transdermal patch dicyclomine 20 mg tablet 20 mg PO TID PRN Indigestion 01/04/23 01/04/23 History diphenhydramine HCl 25 mg capsule 25 mg PO Q6H PRN Allergy Symptoms 01/04/23 01/04/23 History (Benadryl) docusate sodium 100 mg capsule 100 mg PO DAILY 01/04/23 01/04/23 History hydroxyzine pamoate 50 mg capsule 50 mg PO TID PRN Anxiety 01/04/23 01/04/23 History (Vistaril) loratadine 10 mg tablet (Claritin) 10 mg PO DAILY PRN Allergy Symptoms 01/04/23 01/04/23 History multivitamin 1 tab PO QAM 01/04/23 01/04/23 History promethazine 25 mg tablet 25 mg PO Q6H PRN Pain 01/04/23 01/04/23 History quetiapine 50 mg tablet (Seroquel) 75 mg PO HS 01/04/23 01/04/23 History trazodone 150 mg tablet 150 mg PO HS 01/04/23 01/04/23 History Past Med/Surg History Medical History Anemia Atherogenic dyslipidemia Benign essential hypertension Chronic indwelling Gifford catheter Combined systolic and diastolic congestive heart failure COPD (chronic obstructive pulmonary disease) PAF (paroxysmal atrial fibrillation) Type 2 diabetes mellitus Social History Smoking Status: Former smoker Second Hand Exposure: No; Do You Dip or Chew Tobacco: No; Hx Alcohol Use: No Hx Substance Use: No Preferred Language: Korean Communication Ability: Effective Beliefs That Will Affect Care: None Current Living Situation: Longterm Current Living Situation Comment: [place] Feels Safe at Home: Yes Safety Concerns: Feels Safe At This Time Assistive Devices: Glasses and Other Assistive Devices Comment: rahel Review of Systems Review of Systems: Unobtainable due to reduced consciousness Physical Exam Constitutional: well developed and well nourished; no acute distress Eyes: PERRL, conjunctivae normal, anicteric sclerae ENMT: external ear and nose normal, oropharynx normal Neck: trachea midline, no thyromegaly Respiratory: normal respiratory effort, lungs clear to auscultation No increased respiratory effort on BiPAP Cardiovascular: RRR, no murmur, no edema Gastrointestinal (Abdomen): normal bowel sounds, soft, nontender, no hepatosplenomegaly Skin: no rashes, warm and dry Neurologic: Patient awakens to voice, then falls back asleep Genitourinary: Gifford draining dark clear yellow urine Results & Data Results & Data ([facility]) Vital Signs (Past 12 Hours) Vital Signs Temp Pulse Resp BP Pulse Ox O2 Del Method FiO2 01/04/23 08:49 35.4 C L 87 20 103/66 93 01/04/23 08:15 89 18 93 01/04/23 08:14 134/54 L 01/04/23 08:14 88 18 01/04/23 08:01 29 H 94 01/04/23 08:01 135/61 01/04/23 08:00 22 94 01/04/23 07:45 88 19 94 01/04/23 07:45 111/79 01/04/23 07:31 22 95 01/04/23 07:31 129/73 01/04/23 07:30 20 94 01/04/23 08:19 35.9 C L 83 134/54 L 94 01/04/23 07:50 35.9 C L 86 20 129/68 93 01/04/23 07:47 35.9 C L 86 19 111/79 96 01/04/23 07:17 93 H 21 95 01/04/23 07:17 156/116 H 01/04/23 07:15 95 01/04/23 07:14 92 H 17 01/04/23 06:46 87 21 94 01/04/23 06:46 128/97 01/04/23 06:45 88 20 95 01/04/23 07:17 92 H 21 93 45 01/04/23 06:31 99 H 21 94 01/04/23 06:31 99/54 L 01/04/23 06:30 94 H 19 92 01/04/23 06:16 89 21 94 01/04/23 06:16 131/96 01/04/23 06:15 90 26 H 93 01/04/23 06:01 110/80 01/04/23 06:01 64 26 H 92 01/04/23 06:00 96 H 21 93 01/04/23 06:05 87 01/04/23 05:49 104 H 25 H 92 01/04/23 05:49 115/75 01/04/23 05:46 138 H 28 H 94 01/04/23 05:31 120 H 26 H 102/73 94 01/04/23 05:16 126/69 01/04/23 05:16 128 H 25 H 94 01/04/23 05:01 139 H 26 H 98 01/04/23 05:01 109/60 01/04/23 05:00 129 H 22 01/04/23 04:46 124 H 26 H 96 BiPAP 01/04/23 04:46 140/95 01/04/23 03:50 120 H 28 H 97 60 01/04/23 04:30 108 H 29 H 99 BiPAP 01/04/23 04:29 142 H 29 H 99 BiPAP 01/04/23 04:29 120/79 01/04/23 04:15 141 H 22 99 BiPAP 01/04/23 04:00 125 H 30 H 99 BiPAP 01/04/23 04:00 101/80 01/04/23 04:02 100 BiPAP 01/04/23 03:45 118 H 27 H 99 BiPAP 01/04/23 03:45 112/70 01/04/23 04:00 36.3 C L 01/04/23 03:53 137 H 01/04/23 03:46 125 H 25 H 112/70 88 L Room Air Code Status & VTE Plan VTE Prophylaxis Plan VTE Prophylaxis will be ordered: Yes Critical Care Time Critical Care Time: Yes Total Critical Care Time: 60 Ihave personally spent 60 minutes of critical care time in the direct management of this patient. This is a life/limb threatening event. This includes time spent evaluating patient, direct bedside care, chart review, placing orders, interpretation of diagnostic studies, discussion with consultants, patient, and family members, as well as other required patient management activities. PG Care Time/CCT Total # of Minutes Spent Total Time Spent with Patient: Total time spent is greater than 50% in coordination of care (as documented) at patient's floor/unit and/or counseling patient: Critical Care Time: Yes Total Critical Care Time: 60 Coding Level of Care Code 51105 INT INP/OBS CARE 3/75MIN Diagnoses Acute and chronic respiratory failure with hypoxia J96.21 Hypercapnic respiratory failure J96.92 Acute on chronic renal failure N17.9; N18.9 Hyperkalemia E87.5 Sepsis A41.9 Shock liver K72.00 Acute GI bleeding K92.2 Symptomatic anemia D64.9 Combined systolic and diastolic congestive heart failure I50.40 PAF (paroxysmal atrial fibrillation) I48.0 Nephrolithiasis N20.0 Complicated UTI (urinary tract infection) N39.0 Atelectasis J98.11 COPD (chronic obstructive pulmonary disease) J44.9 Additional Codes Critical Care Time - Critical Care Time: Yes ([id number])
[2023-01-04] MEDS ORDERED: STAT IV STA (10:11)
[2023-01-04] MEDS ORDERED: CEFEPIME 20 ML IV STA (10:16)
[2023-01-04 10:18] LABS: Base Excess ABG -6.4 mEq/L (-9-1.8); HCO3 ABG 22 mmol/L (19-24); Oxygen Saturation ABG 96.8 % (90-95); PCO2 ABG 55 mmHg (35-46); PO2 ABG 79 mmHg (80-95); pH ABG 7.21 (7.35-7.45)
[2023-01-04 10:20] LABS: Allen Test Pos (Pos)
[2023-01-04] MEDS ORDERED: CALCIUM GLUCONATE 10% 1,000 MG in DEXTROSE 5% 50 ML IV ONE (10:30)
--- NOTE | 2023-01-04 10:37 | XCELERA ---
[id number]
[2023-01-04 10:38] LABS: INR 1.3 (0.9-1.1); Partial Thromboplastin Ratio 1.2; Partial Thromboplastin Time 32.8 Seconds (21.0-31.0); Prothrombin Time 13.3 Seconds (9.0-12.0)
[2023-01-04 10:55] LABS: Alanine Aminotransferase 957 U/L (7-52); Albumin Globulin Ratio 0.8 (0.9-2); Albumin Level 3.5 gm/dl (3.4-5.0); Alkaline Phosphatase 202 U/L (34-104); Anion Gap 15 (3-11); Aspartate Aminotransferase 324 U/L (13-39); BUN Creatinine Ratio 30.4 (10-20); Bilirubin,Total 0.6 mg/dl (0.2-1.0); Blood Urea Nitrogen 141 mg/dl (6-23); Calcium 8.6 mg/dl (8.5-10.1); Carbon Dioxide 23 mmol/L (21-32); Chloride 92 mmol/L (98-107); Est GFR (African American) 9.7 ml/min; Est GFR (Non-African American) 8.4 ml/min; Globulin 4.2 gm/dl (2.5-4.0); Glucose 326 mg/dl (70-99(Fasting)); Potassium 5.6 mmol/L (3.5-5.1); Sodium 130 mmol/L (136-145); Total Protein 7.7 gm/dl (6.0-8.3); Troponin I High Sensitivity 18.7 pg/ml (0-14)
[2023-01-04] MEDS ORDERED: ALBUT/IPRATROP 3MG/0.5MG NEB 3 ML VIAL NEB PRN (11:10)
[2023-01-04] MEDS ORDERED: Patient's HEIGHT &/or WEIGHT Needed SCH (11:15)
[2023-01-04] MEDS ORDERED: PANTOprazole 80 MG in DEXTROSE 5% 100 ML IV SCH (11:15)
[2023-01-04] MEDS ORDERED: methylPREDNISolone 40 MG in SYRINGE 0 ML IV SCH (11:15)
[2023-01-04] MEDS ORDERED: GLUCOSE 10 TAB/TUBE PO PRN (11:24)
[2023-01-04] MEDS ORDERED: GLUCOSE 40% GEL 15 GM TUBE PO PRN (11:24)
[2023-01-04] MEDS ORDERED: CARBOHYDRATES FOR HYPOGLYCEMIA PO PRN (11:24)
[2023-01-04] MEDS ORDERED: DEXTROSE 50% 50 ML SYRINGE IV PRN (11:24)
[2023-01-04] MEDS ORDERED: ONDANSETRON INJ 2 MG/ML 2 ML VIAL IV PRN (11:24)
[2023-01-04] MEDS ORDERED: PHARMACY GLYCEMIC MGMT CONSULT PRN (11:24)
[2023-01-04] MEDS ORDERED: GLUCAGON FOR INJ 1 MG VIAL SQ PRN (11:24)
[2023-01-04] MEDS ORDERED: MoRPHine SULFATE 2 MG/ML CARP IV PRN (11:24)
[2023-01-04] MEDS ORDERED: NITROGLYCERIN SL 0.4 MG/TAB TAB SL PRN (11:24)
[2023-01-04] MEDS ORDERED: DAPTOmycin 500 MG in SYRINGE 0 ML IV SCH (12:00)
[2023-01-04] MEDS: SODIUM CHLORIDE 0.9% 1000ML 1,000 ML IV SCH ×3 (12:14→23:15)
[2023-01-04] MEDS: PANTOprazole 40 MG in DEXTROSE 5% 100 ML IV SCH ×3 (12:44→23:15)
[2023-01-04] MEDS ORDERED: ALBUT/IPRATROP 3MG/0.5MG NEB 3 ML VIAL INH SCH (13:00)
[2023-01-04] MEDS ORDERED: LANTUS PER UNIT CHARGE SQ ONE (13:00)
--- NOTE | 2023-01-04 13:01 | Nephrology Consultation ---
Date of Consultation January 04, 2023 Assessment & Plan (1) Acute on chronic renal failure: Non-oliguric. ABDIAS attributed to decreased EAV in setting of sepsis/hemodynamic instability. Suspect superimposed ATN. Hyperkalemia improving with medical management. Possible component of bladder outlet obstruction which appears to have resolved with exchange of Gifford catheter. A 4 mm stone is appreciated in the proximal right ureter. Urology has been consulted. Unclear if patient would benefit for intervention at this time but if signs of infection and kidney function do not continue to improve, intervention would be advised. Blood and urine cultures are pending. IVF being provided cautiously and PRN to maintain BP. Avoid aggressive diuresis. Improvement noted following PRBC support. Baseline creatinine 1.6-1.8 mg/dL. Dialysis not to be considered part of care plan based on advanced directive. Document strict I/O. Repeat metabolic profile this evening. (2) Hyperkalemia: Calcium gluconate provided. Improving with improved UOP and intravascular volume expansion. Small fluid boluses encouraged for decrease in BP or UOP. BIPAP for hypercapnia. (3) Combined systolic and diastolic congestive heart failure: TTE reviewed. Avoid significantly positive fluid balance. Document I/O's. Hold diuretics for now. (4) Complicated UTI (urinary tract infection): Culture pending. Received cefepime, daptomycin, and azithromycin. (5) Chronic indwelling Gifford catheter: Exchanged. UOP improved. (6) Anemia: Acute on chronic. PRBC transfusion support provided. Stool occult reportedly positive. (7) PAF (paroxysmal atrial fibrillation): Cardiology consult appreciated. (8) COPD (chronic obstructive pulmonary disease): Remains on BIPAP for acute hypercapnic respiratory failure. History of Present Illness Reason for Consultation: ABDIAS, hyperkalemia Requesting Physician: Heidi Zuniga DO Attending Physician: Heidi Zuniga DO History of Present Illness Tasneem Pena is a 77 year-old female with a reported history of congestive heart failure, hypertension, COPD on chronic O2, atrial fibrillation, dementia, anemia, urinary obstruction with indwelling Gifford, and chronic kidney disease. She is a resident at [facility]. Baseline creatinine in October and November 2022 documented at 1.6-1.8 mg/dL. Tasneem presented to the ER at [facility] overnight for evaluation of mental status changes. I was contacted by Dr. Zuniga this morning. The patient was then seen and evaluated in the ER. Tasneem was placed on BIPAP on presentation for hypercapnic and hypoxic respiratory distress. She was relatively obtunded and not able to provide any history for me. Limited records were available for review. Recent reported history is notable for progressive hypoxia and increased work of breathing as well as progressive lethargy. Clinical findings reportedly supportive of pneumonia for which she was recently started on Doxycycline.Unfortunately without improvement. On presentation to [facility], she was hypotensive in atrial flutter with variable AV block.Laboratory studies demonstrating notable leukocytosis, acute anemia, elevated creatinine, elevated liver enzymes, and hyperkalemia. Indwelling Gifford catheter was exchanged and reported 1 L of urine rapidly drained. Tasneem remained non-oliguric at the time of my assessment. BP improved. Temperature low at 35.8. Oxygenating reasonably well on BIPAP. Family provided documentation, including POLST indicating DNR/DNI and refusal of dialysis. CT abdomen demonstrates a 4 mm stone in the proximal right ureter with prominence of the proximal ureter. Non-obstructive stones noted bilaterally. Urine studies demonstrating +1 protein, 3+ blood. Microscopy with >30 WBC, 10-30 RBC, hyaline casts, and bacteria. Potassium improved to 5.6 mmol/L on recheck following improved hemodynamics and resolution of presumed bladder outlet obstruction. Stool is reportedly positive for occult blood. No melena or hematochezia reported. Allergies Allergy/AdvReac Type Severity Reaction Status Date / Time ciprofloxacin Allergy Unknown Unknown Verified 01/04/23 10:39 lorazepam Allergy Unknown Unknown Verified 01/04/23 10:39 Penicillins Allergy Unknown Unknown Verified 01/04/23 10:39 Home Medications Medication Instructions Recorded Confirmed Type acetaminophen 650 mg 650 mg PO Q8H PRN Pain 01/04/23 01/04/23 History tablet,extended release bisacodyl 5 mg tablet 15 mg PO HS 01/04/23 01/04/23 History buprenorphine 4 mg-naloxone 1 mg 2 film sublingual DAILY 01/04/23 01/04/23 History sublingual film (Suboxone) clonidine 0.1 mg/24 hr weekly 0 mg topical TID PRN Back Pain 01/04/23 01/04/23 History transdermal patch dicyclomine 20 mg tablet 20 mg PO TID PRN Indigestion 01/04/23 01/04/23 History diphenhydramine HCl 25 mg capsule 25 mg PO Q6H PRN Allergy Symptoms 01/04/23 01/04/23 History (Benadryl) docusate sodium 100 mg capsule 100 mg PO DAILY 01/04/23 01/04/23 History hydroxyzine pamoate 50 mg capsule 50 mg PO TID PRN Anxiety 01/04/23 01/04/23 History (Vistaril) loratadine 10 mg tablet (Claritin) 10 mg PO DAILY PRN Allergy Symptoms 01/04/23 01/04/23 History multivitamin 1 tab PO QAM 01/04/23 01/04/23 History promethazine 25 mg tablet 25 mg PO Q6H PRN Pain 01/04/23 01/04/23 History quetiapine 50 mg tablet (Seroquel) 75 mg PO HS 01/04/23 01/04/23 History trazodone 150 mg tablet 150 mg PO HS 01/04/23 01/04/23 History Patient History Medical History (Updated 01/04/23 @ 11:13 by Heidi Zuniga DO) Anemia Atherogenic dyslipidemia Benign essential hypertension Chronic indwelling Gifford catheter Combined systolic and diastolic congestive heart failure COPD (chronic obstructive pulmonary disease) PAF (paroxysmal atrial fibrillation) Type 2 diabetes mellitus Social History Smoking Status: Unknown if ever smoked Preferred Language: Serbian Review of Systems Review of Systems: Unobtainable due to reduced consciousness Physical Exam Constitutional: + ill appearing, + obese and + frail appearing Eyes: + anicteric sclerae; pupils not irregular ENMT: NRB facemask Neck: normal visual inspection and trachea midline Respiratory: + tachypneic Auscultation: lungs clear to auscultation bilaterally, + rales and + rhonchi Cardiovascular: Rate/Rhythm: + tachycardic Heart Sounds: normal S1, normal S2 and + murmur Vessels: + JVD Extremities: no edema Gastrointestinal (Abdomen): Inspection/Auscultation: + abdomen distended and + hypoactive bowel sounds Percussion/Palpation: abdomen soft and + tympanic to percussion; abdomen not rigid Musculoskeletal: Extremities: no cyanosis and no clubbing Skin: + turgor decreased and + ecchymosis; no jaundice Neurologic: Speech / Cognition: + abnormal cognition Motor/Sensory: no fasciculations and no asterixis Psychiatric: Orientation: + not alert Results & Data ([facility]) Vital Signs (Past 12 Hours) Vital Signs Temp Pulse Resp BP Pulse Ox O2 Del Method FiO2 01/04/23 11:10 103 H 24 98 45 01/04/23 11:00 BiPAP 01/04/23 10:32 172/96 H 01/04/23 10:32 35.5 C L 88 14 86 L 01/04/23 10:30 35.5 C L 87 19 85 L 01/04/23 10:16 35.5 C L 86 18 92 01/04/23 10:16 120/75 01/04/23 10:15 35.5 C L 89 22 93 01/04/23 10:45 35.5 C L 83 20 172/96 H 01/04/23 10:03 125/79 01/04/23 10:03 35.5 C L 105 H 18 92 01/04/23 10:00 35.5 C L 96 H 19 97 01/04/23 09:45 35.6 C L 87 17 92 01/04/23 09:30 35.6 C L 85 16 97 01/04/23 09:30 109/88 01/04/23 09:15 35.6 C L 82 20 94 01/04/23 09:15 110/75 01/04/23 09:01 35.6 C L 94 H 21 93 01/04/23 09:01 101/64 01/04/23 09:00 35.6 C L 84 16 95 01/04/23 08:46 84 27 H 95 01/04/23 08:46 103/66 01/04/23 08:45 86 24 95 01/04/23 08:31 86 14 95 01/04/23 08:31 110/68 01/04/23 08:30 86 16 95 01/04/23 08:17 86 20 92 01/04/23 08:17 129/68 01/04/23 09:49 35.5 C L 85 20 127/79 95 01/04/23 08:49 35.4 C L 87 20 103/66 93 01/04/23 08:15 89 18 93 01/04/23 08:14 134/54 L 01/04/23 08:14 88 18 03/11/23 08:01 29 H 94 01/04/23 08:01 135/61 01/04/23 08:00 22 94 01/04/23 07:45 88 19 94 01/04/23 07:45 111/79 01/04/23 07:31 22 95 01/04/23 07:31 129/73 01/04/23 07:30 20 94 01/04/23 08:19 35.9 C L 83 134/54 L 94 01/04/23 07:50 35.9 C L 86 20 129/68 93 01/04/23 07:47 35.9 C L 86 19 111/79 96 01/04/23 07:17 93 H 21 95 01/04/23 07:17 156/116 H 01/04/23 07:15 95 01/04/23 07:14 92 H 17 01/04/23 06:46 87 21 94 01/04/23 06:46 128/97 01/04/23 06:45 88 20 95 01/04/23 07:17 92 H 21 93 45 01/04/23 06:31 99 H 21 94 01/04/23 06:31 99/54 L 01/04/23 06:30 94 H 19 92 01/04/23 06:16 89 21 94 01/04/23 06:16 131/96 01/04/23 06:15 90 26 H 93 01/04/23 06:01 110/80 01/04/23 06:01 64 26 H 92 01/04/23 06:00 96 H 21 93 01/04/23 06:05 87 01/04/23 05:49 104 H 25 H 92 01/04/23 05:49 115/75 01/04/23 05:46 138 H 28 H 94 01/04/23 05:31 120 H 26 H 102/73 94 01/04/23 05:16 126/69 01/04/23 05:16 128 H 25 H 94 01/04/23 05:01 139 H 26 H 98 01/04/23 05:01 109/60 01/04/23 05:00 129 H 22 01/04/23 04:46 124 H 26 H 96 BiPAP 01/04/23 04:46 140/95 01/04/23 03:50 120 H 28 H 97 60 01/04/23 04:30 108 H 29 H 99 BiPAP 01/04/23 04:29 142 H 29 H 99 BiPAP 01/04/23 04:29 120/79 01/04/23 04:15 141 H 22 99 BiPAP 01/04/23 04:00 125 H 30 H 99 BiPAP 01/04/23 04:00 101/80 01/04/23 04:02 100 BiPAP 01/04/23 03:45 118 H 27 H 99 BiPAP 01/04/23 03:45 112/70 01/04/23 04:00 36.3 C L 01/04/23 03:53 137 H 01/04/23 03:46 125 H 25 H 112/70 88 L Room Air Diagnostic Findings CT abd pelvis wo con FINDINGS: Liver: Unremarkable. No focal lesions are seen. Gallbladder and biliary tree: No calcified gallstones. Normal caliber wall. No intra- or extrahepatic biliary ductal dilation. Pancreas: Unremarkable, no focal lesions. Spleen: Unremarkable. Adrenals: Unremarkable. Kidneys and ureters: There is a 4 mm stone in the right proximal ureter. No significant hydronephrosis is seen, there is mild prominence of the proximal ureter. Nonobstructive stones are seen bilaterally. Bladder: Gifford catheter is seen. Reproductive organs: Unremarkable. Bowel: Diverticulosis is seen without evidence of diverticulitis. Lymph nodes Retroperitoneal: Subcentimeter lymph nodes are noted. Pelvic: Unremarkable. Mesenteric: Unremarkable. Peritoneum: Normal. Vessels: Atherosclerotic calcifications are seen. Abdominal wall: Right fat-containing inguinal hernia. Bones: Degenerative changes in the visualized spine. IMPRESSION: Stone in the right proximal ureter measuring 4 mm. There may be a small amount of hydroureter however no hydronephrosis is seen. Nonobstructive nephrolithiasis is otherwise noted. CT chest diagnostic wo con FINDINGS: Lungs and pleura: Atelectasis is seen most prominent in the left lower lobe. There is a 3 mm nodule in the left upper lobe (series 10 image 82). Heart and pericardium: Mitral annular calcifications are seen. There is a small pericardial effusion. Vessels: The pulmonary trunk is enlarged measuring 38 mm. Mild atherosclerotic disease is seen. Mediastinum and coby: Subcentimeter lymph nodes are seen. Chest wall and lower neck: Unremarkable. Abdomen: Unremarkable. Bones: Degenerative changes in the thoracic spine. IMPRESSION: 1. Atelectasis is seen with near collapse of the left lower lobe. 2. Cardiomegaly and pulmonary hypertension. Transthoracic echocardiogram: Normal LV systolic function (LVEF 55-60%). No WMA. Small to moderate pericardial effusion. Severe LA enlargement and moderate to severe RA enlargement. Moderate Ao insufficiency. Moderate TR. Increased RAP. ECG Rate (beats per minute): 124 Additional Comments: Atrial flutter with variable A-V block with premature ventricular or aberrantly conducted complexes Low voltage QRS T wave abnormality, consider inferior ischemia PG Care Time/CCT Total # of Minutes Spent Total Time Spent with Patient: Total time spent is greater than 50% in coordination of care (as documented) at patient's floor/unit and/or counseling patient: Coding Level of Care Code 11094 IN/OBS CONSULT LVL 5,80M Diagnoses Acute on chronic renal failure N17.9; N18.9 Hyperkalemia E87.5 Combined systolic and diastolic congestive heart failure I50.40 Complicated UTI (urinary tract infection) N39.0 Chronic indwelling Gifford catheter Z97.8 Anemia D64.9 PAF (paroxysmal atrial fibrillation) I48.0 COPD (chronic obstructive pulmonary disease) J44.9
[2023-01-04] MEDS: INSULIN ASPART PER UNIT SC SCH ×2 (13:23→19:25)
--- NOTE | 2023-01-04 14:23 | Urology Consultation ---
Date of Consultation January 04, 2023 Assessment & Plan (1) Chronic indwelling Gifford catheter: (2) Nephrolithiasis: (3) Complicated UTI (urinary tract infection): Plan Acutely ill 77-year-old female with numerous acute on chronic issues 1. Kidney stone Given her other issues, I believe we should do prioritize treatment of the stone Although this may contribute to her current ABDIAS, I do not believe it is the only grain combine driver and I would like to observe her renal function before intervening I also do not believe that her kidney stone is the sole grain combine driver of her tachycardia/hypotension If she ultimately begins to show definitive signs or symptoms of urosepsis secondary to an obstructing/infected stone, we certainly can intervene, however I explained very clearly to the sisters that in her current state any anesthesia driven intervention poses substantial risks 2. ABDIAS Nephrology consult reviewed I agree that I believe this is multifactorial, currently her Gifford catheter is draining wellthis did not seem to be the case when she initially arrived, so any bladder outlet obstruction at this stage should have been relieved Monitor for now Improve pulmonary status, cardiac status and observe to see if renal status improves subsequent to correction of her other issues In summary, I will continue to follow her but do not plan on any emergent intervention barring a substantial clinical change History of Present Illness Attending Physician: Heidi Zuniga, DO History of Present Illness Acutely ill 77-year-old female with numerous acute on chronic issues Currently tachycardic, borderline hypotensive Receiving a blood transfusion Cardiology, nephrology consults completed Pending lab work with repeat troponins, BNP, BMP, CBC GI consult has been ordered but not yet completed In the midst of her numerous chronic issues, she has have urological issues as well She is passing a stone fragment currently on the right She has some modest dilation of the extreme proximal ureter with a stone several centimeters below the kidney She has other stones in each kidney She has a chronic indwelling Gifford catheter secondary to her chronic medical is sues, dementia, immobility She has had numerous infections in the pastlikely worsened by the presence of a chronic indwelling catheter I have personally reviewed her CT scan and I discussed her care with Dr. Hamilton as well as 3 of the patient's sisters Allergies Allergy/AdvReac Type Severity Reaction Status Date / Time ciprofloxacin Allergy Unknown Unknown Verified 01/04/23 10:39 lorazepam Allergy Unknown Unknown Verified 01/04/23 10:39 Penicillins Allergy Unknown Unknown Verified 01/04/23 10:39 Home Medications Medication Instructions Recorded Confirmed Type acetaminophen 650 mg 650 mg PO Q8H PRN Pain 01/04/23 01/04/23 History tablet,extended release bisacodyl 5 mg tablet 15 mg PO HS 01/04/23 01/04/23 History buprenorphine 4 mg-naloxone 1 mg 2 film sublingual DAILY 01/04/23 01/04/23 History sublingual film (Suboxone) clonidine 0.1 mg/24 hr weekly 0 mg topical TID PRN Back Pain 01/04/23 01/04/23 History transdermal patch dicyclomine 20 mg tablet 20 mg PO TID PRN Indigestion 01/04/23 01/04/23 History diphenhydramine HCl 25 mg capsule 25 mg PO Q6H PRN Allergy Symptoms 01/04/23 01/04/23 History (Benadryl) docusate sodium 100 mg capsule 100 mg PO DAILY 01/04/23 01/04/23 History hydroxyzine pamoate 50 mg capsule 50 mg PO TID PRN Anxiety 01/04/23 01/04/23 History (Vistaril) loratadine 10 mg tablet (Claritin) 10 mg PO DAILY PRN Allergy Symptoms 01/04/23 01/04/23 History multivitamin 1 tab PO QAM 01/04/23 01/04/23 History promethazine 25 mg tablet 25 mg PO Q6H PRN Pain 01/04/23 01/04/23 History quetiapine 50 mg tablet (Seroquel) 75 mg PO HS 01/04/23 01/04/23 History trazodone 150 mg tablet 150 mg PO HS 01/04/23 01/04/23 History Patient History Medical History Anemia Atherogenic dyslipidemia Benign essential hypertension Chronic indwelling Gifford catheter Combined systolic and diastolic congestive heart failure COPD (chronic obstructive pulmonary disease) PAF (paroxysmal atrial fibrillation) Type 2 diabetes mellitus Social History Smoking Status: Unknown if ever smoked Preferred Language: Mohawk Review of Systems Review of Systems: Unobtainable due to reduced consciousness Physical Exam Physical Exam: BiPAP mask Blood transfusion currently running Tachycardic Normotensive Afebrile 93% oxygen saturation with the BiPAP Abdomen soft Gifford catheter in place draining moderately dark urine but substantial amounts Results & Data ([facility]) Vital Signs (Past 12 Hours) Vital Signs Temp Pulse Resp BP Pulse Ox O2 Del Method FiO2 01/04/23 13:56 130 H 26 H 93 45 01/04/23 13:45 36.0 C L 104 H 22 95/64 L 94 01/04/23 13:30 35.7 C L 120 H 22 116/70 94 01/04/23 13:11 35.8 C L 112 H 22 106/68 93 01/04/23 11:10 103 H 24 98 45 01/04/23 11:00 BiPAP 01/04/23 10:32 172/96 H 01/04/23 10:32 35.5 C L 88 14 86 L 01/04/23 10:30 35.5 C L 87 19 85 L 01/04/23 10:16 35.5 C L 86 18 92 01/04/23 10:16 120/75 01/04/23 10:15 35.5 C L 89 22 93 01/04/23 10:45 35.5 C L 83 20 172/96 H 01/04/23 10:03 125/79 01/04/23 10:03 35.5 C L 105 H 18 92 01/04/23 10:00 35.5 C L 96 H 19 97 01/04/23 09:45 35.6 C L 87 17 92 01/04/23 09:30 35.6 C L 85 16 97 01/04/23 09:30 109/88 01/04/23 09:15 35.6 C L 82 20 94 01/04/23 09:15 110/75 01/04/23 09:01 35.6 C L 94 H 21 93 01/04/23 09:01 101/64 01/04/23 09:00 35.6 C L 84 16 95 01/04/23 08:46 84 27 H 95 01/04/23 08:46 103/66 01/04/23 08:45 86 24 95 01/04/23 08:31 86 14 95 01/04/23 08:31 110/68 01/04/23 08:30 86 16 95 01/04/23 08:17 86 20 92 01/04/23 08:17 129/68 01/04/23 09:49 35.5 C L 85 20 127/79 95 01/04/23 08:49 35.4 C L 87 20 103/66 93 01/04/23 08:15 89 18 93 01/04/23 08:14 134/54 L 01/04/23 08:14 88 18 01/04/23 08:01 29 H 94 01/04/23 08:01 135/61 01/04/23 08:00 22 94 01/04/23 07:45 88 19 94 01/04/23 07:45 111/79 01/04/23 07:31 22 95 01/04/23 07:31 129/73 01/04/23 07:30 20 94 01/04/23 08:19 35.9 C L 83 134/54 L 94 01/04/23 07:50 35.9 C L 86 20 129/68 93 01/04/23 07:47 35.9 C L 86 19 111/79 96 01/04/23 07:17 93 H 21 95 01/04/23 07:17 156/116 H 01/04/23 07:15 95 01/04/23 07:14 92 H 17 01/04/23 06:46 87 21 94 01/04/23 06:46 128/97 01/04/23 06:45 88 20 95 01/04/23 07:17 92 H 21 93 45 01/04/23 06:31 99 H 21 94 01/04/23 06:31 99/54 L 01/04/23 06:30 94 H 19 92 01/04/23 06:16 89 21 94 01/04/23 06:16 131/96 01/04/23 06:15 90 26 H 93 01/04/23 06:01 110/80 01/04/23 06:01 64 26 H 92 01/04/23 06:00 96 H 21 93 01/04/23 06:05 87 01/04/23 05:49 104 H 25 H 92 01/04/23 05:49 115/75 01/04/23 05:46 138 H 28 H 94 01/04/23 05:31 120 H 26 H 102/73 94 01/04/23 05:16 126/69 01/04/23 05:16 128 H 25 H 94 01/04/23 05:01 139 H 26 H 98 01/04/23 05:01 109/60 01/04/23 05:00 129 H 22 01/04/23 04:46 124 H 26 H 96 BiPAP 01/04/23 04:46 140/95 01/04/23 03:50 120 H 28 H 97 60 01/04/23 04:30 108 H 29 H 99 BiPAP 01/04/23 04:29 142 H 29 H 99 BiPAP 01/04/23 04:29 120/79 01/04/23 04:15 141 H 22 99 BiPAP 01/04/23 04:00 125 H 30 H 99 BiPAP 01/04/23 04:00 101/80 01/04/23 04:02 100 BiPAP 01/04/23 03:45 118 H 27 H 99 BiPAP 01/04/23 03:45 112/70 01/04/23 04:00 36.3 C L 01/04/23 03:53 137 H 01/04/23 03:46 125 H 25 H 112/70 88 L Room Air PG Care Time/CCT Total # of Minutes Spent Total Time Spent with Patient: Total time spent is greater than 50% in coordination of care (as documented) at patient's floor/unit and/or counseling patient: Coding Level of Care Code 24089 INT INP/OBS CARE 375MIN Diagnoses Chronic indwelling Gifford catheter Z97.8 Nephrolithiasis N20.0 Complicated UTI (urinary tract infection) N39.0
--- NOTE | 2023-01-04 14:28 | Electrocardiogram Report ---
Test Reason : Blood Pressure : / mmHG Vent. Rate : 124 BPM Atrial Rate : 277 BPM P-R Int : 000 ms QRS Dur : 084 ms QT Int : 270 ms P-R-T Axes : 258 066 -04 degrees QTc Int : 387 ms Atrial flutter with variable A-V block with premature ventricular or aberrantly conducted complexes Low voltage QRS T wave abnormality, consider inferior ischemia and lateral Abnormal ECG No previous ECGs available Confirmed by Pavan Colón ([id number]) on 01/04/2023 2:27:30 PM Referred By: [facility] Confirmed By:Pavan Colón
--- NOTE | 2023-01-04 14:49 | Pharmacy Report ---
Pharmacy Glycemic Short Note 2 - Date of Service January 04, 2023 - Glycemic Short BSG Results (Last 24 hours): 01/04/23 01/04/23 01/04/23 04:23 10:03 12:32 Glucose 151 H 326 H* POC Glucose 209 H OUTPATIENT ANTIDIABETIC REGIMEN: * n/a ASSESSMENT: * Ms Pena is a 77 y/o F who presents with UTI/active infection and sepsis. BSG on PRP on admission was 151 then 326 mg (about 30 mins after 10 units of I V insulin + amp of D50 given for hyperkalemia). * POC at noon was 209 mg/dL. * Patient currently NPO and on Protonix infusion. * Will give Lantus 10 units x 1 (0.1 units/kg) and Novolog q4 with weight-based stress of 2 CF. This will ensure BSGs remain < 180 mg/dL in case of a surgical procedure. * Additional Lantus doses to be determined based upon patient's PO status going forward and response to this small dose. PLAN FOR INPATIENT GLYCEMIC CONTROL: * Basal insulin * Lantus 10 units SQ x 1 with subsequent doses to be determined * Bolus insulin * NovoLog per scale ACHS or Q6hrs while NPO * Goal Range: Low 110 mg/dL - High 140 mg/dL * Correction Factor: 30 mg/dL/unit * Nutritional / Prandial insulin per carb ratio of 1 unit per 10 grams CHO consumed
[2023-01-04 15:54] LABS: Base Excess ABG -6.9 mEq/L (-9-1.8); HCO3 ABG 21 mmol/L (19-24); Oxygen Saturation ABG 95.7 % (90-95); PCO2 ABG 55 mmHg (35-46); PO2 ABG 71 mmHg (80-95)
[2023-01-04 16:07] LABS: pH ABG 7.19 (7.35-7.45)
[2023-01-04 16:08] LABS: Allen Test Pos (Pos)
[2023-01-04 17:07] LABS: Basophils # (auto) 0.04 K/uL (0-0.2); Basophils % (auto) 0.2 %; Hematocrit (blood only) 26.6 % (37.0-47.0); Hemoglobin 8.4 g/dl (12.0-16.0); Immature Granulocytes # (auto) 0.66 K/uL (0.01-0.20); Immature Granulocytes % (auto) 3.9 %; Lymphocytes # (auto) 0.53 K/uL (1.2-3.4); Lymphocytes % (auto) 3.2 %; Mean Corpuscular Hemoglobin 27.9 pg (25.0-34.0); Mean Corpuscular Hgb Conc 31.6 g/dL (32.0-36.0); Mean Corpuscular Volume 88.4 fL (80.0-100.0); Mean Platelet Volume 9.5 fL (9.4-12.4); Monocytes # (auto) 0.97 K/uL (0.11-0.59); Monocytes % (auto) 5.8 %; Neutrophils # (auto) 14.57 K/uL (1.40-6.50); Neutrophils % (auto) 86.9 %; Nucleated RBC # (auto) 0.31 K/uL (0-0.12); Nucleated RBC % (auto) 1.8 %; Platelet Count 434 K/uL (130-400); RDW Coefficient of Variation 15.9 % (11.5-14.5); RDW Standard Deviation 51.7 fL (36.4-46.3); Red Blood Count 3.01 M/uL (4.20-5.40); White Blood Count 16.77 K/ul (4.8-10.8)
[2023-01-04 17:41] LABS: Calcium 8.8 mg/dl (8.5-10.1); Creatinine Clr Calc Pharmacy 9.3 ml/min; Est GFR (African American) 10.1 ml/min; Est GFR (Non-African American) 8.7 ml/min; Potassium 5.3 mmol/L (3.5-5.1)
[2023-01-04] MEDS ORDERED: SODIUM CHLORIDE 0.9% 1000ML 250 ML IV ONE (18:48)
[2023-01-04] MEDS ORDERED: guaiFENesin 600 MG TABCR PO SCH (21:00)
[2023-01-05] MEDS ORDERED: INSULIN ASPART PER UNIT SC SCH
[2023-01-05] MEDS: INSULIN ASPART PER UNIT SC SCH ×5 (00:04→20:28)
[2023-01-05 00:43] LABS: Allen Test Pos (Pos); Base Excess ABG -6.5 mEq/L (-9-1.8); HCO3 ABG 21 mmol/L (19-24); Oxygen Saturation ABG 93.9 % (90-95); PCO2 ABG 46 mmHg (35-46); PO2 ABG 63 mmHg (80-95); pH ABG 7.26 (7.35-7.45)
[2023-01-05 01:22] LABS: BUN Creatinine Ratio 31.8 (10-20); Calcium 8.3 mg/dl (8.5-10.1); Creatinine Clr Calc Pharmacy 9.5 ml/min; Est GFR (African American) 10.3 ml/min; Est GFR (Non-African American) 8.9 ml/min; Potassium 5.1 mmol/L (3.5-5.1)
[2023-01-05] MEDS: PANTOprazole 40 MG in DEXTROSE 5% 100 ML IV SCH ×6 (05:29→23:38)
[2023-01-05 06:20] LABS: Basophils # (auto) 0.02 K/uL (0-0.2); Basophils % (auto) 0.1 %; Hematocrit (blood only) 24.6 % (37.0-47.0); Hemoglobin 7.8 g/dl (12.0-16.0); Immature Granulocytes # (auto) 0.24 K/uL (0.01-0.20); Immature Granulocytes % (auto) 1.6 %; Lymphocytes # (auto) 0.54 K/uL (1.2-3.4); Lymphocytes % (auto) 3.5 %; Mean Corpuscular Hemoglobin 27.4 pg (25.0-34.0); Mean Corpuscular Hgb Conc 31.7 g/dL (32.0-36.0); Mean Corpuscular Volume 86.3 fL (80.0-100.0); Mean Platelet Volume 9.5 fL (9.4-12.4); Monocytes # (auto) 0.95 K/uL (0.11-0.59); Monocytes % (auto) 6.2 %; Neutrophils # (auto) 13.59 K/uL (1.40-6.50); Neutrophils % (auto) 88.6 %; Nucleated RBC # (auto) 0.28 K/uL (0-0.12); Nucleated RBC % (auto) 1.8 %; Platelet Count 412 K/uL (130-400); RDW Coefficient of Variation 16.1 % (11.5-14.5); RDW Standard Deviation 50.9 fL (36.4-46.3); Red Blood Count 2.85 M/uL (4.20-5.40); White Blood Count 15.34 K/ul (4.8-10.8)
[2023-01-05 06:37] LABS: Polychromasia 1+; Toxic Vacuolation 1+
--- NOTE | 2023-01-05 07:37 | Hospitalist Progress Note ---
Date of Service January 05, 2023 Assessment & Plan (1) Acute and chronic respiratory failure with hypoxia: Plan: Patient is on 2 L nasal cannula at baseline, with a history of COPD Presented with worsening shortness of breath over several days per facility With hypoxia requiring ultimately BiPAP, with a pH of 7.2 and hypercarbia PCO2 61 -> since improved with pH 7.23 and PC02 45 this AM; will try to decrease FiO2 given elevated PO2 CT noncon of the chest shows atelectasis with near collapse of the left lower lobe vs. pneumonia, no other acute findings (not a contrast study due to ARF) Wean as tolerated with a goal O2 sat of 90% given COPD history Suspect respiratory failure is multifactorial with significant atelectasis with near collapse of the left lower lobe vs. pneumonia, significant anemia, hypercapnia MRSA nares positive, currently on linezolid/cefepime/azithromycin for broad spectrum antibiotic coverage Hypercapnia resolving (2) Hypercapnic respiratory failure: Plan: BiPAP as described above, wean FiO2 as tolerated (3) Acute on chronic renal failure: Plan: 12/16/2022 creatinine of 1.8, on admission with a creatinine of 4.85 with associated hyperkalemia -> down to 4.1 with intermittent small NSS boluses, will switch to LR given acidosis/ARF CT Non-con of the abdomen shows a right renal calculus with mild hydroureter Per ER provider chronic catheter was also not draining on arrival, but now is draining well UOP 175cc from 7a-3p 01/05, continue to monitor with intermittent small bolus LR with close monitoring for signs of fluid overload Nephrology consulted and appreciate recommendations: Suspect multifactorial with bladder outlet obstruction which is since resolved, superimposed ATN, sepsis and hemodynamic instability Patient's sisters provided advanced directive information, stating patient would not desire dialysis should that be necessary (4) Hyperkalemia: Plan: Potassium of 6.2 on admission, down to 5.0 with placement of Gifford, IVF, calcium gluconate, insulin/D50 Nephrology consult as described above Avoiding potassium binders in the setting of possible acute GI bleed (5) Metabolic acidosis: Plan: 2/2 ARF, uremia, GI bleed, GI and Nephrology consulted as described Transition NSS to LR boluses Will give NaHCO3 150 mEq/L at rate of 80cc/hr x250cc, with repeat ABG later this evening (6) Acute GI bleeding: Plan: Suspected, no report of john bleeding per outside facility, but does have positive Hemoccult here per ER provider Patient has a history of anemia, unknown hemoglobin baseline but recent studies have been around 9.0 Hgb 6.5 on admit with BUN 130s, Hgb stable s/p 2u PRBCs at 8.1 Protonix IV daily bolus GI consulted and appreciate recommendations, no endoscopy/colonoscopy at this time given tenuous respiratory status, but will follow and adjust plan if bleeding becomes emergent (7) Sepsis: Plan: Multifactorial, do suspect UTI with infected stone vs. pneumonia, WBC count elevated at 19 on arrival with hypothermia to 35.9 C; hypothermia and WBC count improving with IV Abx and brief need for Syl Hugger Patient has a history of heart failure but received blood as described below, as well as small intermittent boluses of IVF Blood and urine cultures collected, currently on Linezolid/cefepime/azit hromycin, most suspicious of urinary tract infection at this time however given respiratory compromise will treat for PNA as well (8) Atrial fibrillation with RVR: Plan: History of, on Xarelto in the outpatient setting, will hold this in the setting of significant anemia and ? GI bleeding We will also hold her beta-harriet at this time Amiodarone gtt initiated today for HR 140s AFib, continue for now Telemetry for ongoing cardiac monitoring Cardiology consulted as described above (9) Shock liver: Plan: On admission with ALT predominant transaminitis, elevated alk phos to 200s, no complaints of abdominal pain prior to admission CT abdomen pelvis Noncon without evidence of liver pathology Suspect this is shock liver in the setting of sepsis and hypoperfusion from anemia, transaminitis already improved somewhat on repeat check with blood products and IV fluids Continue to monitor liver function (10) Symptomatic anemia: Plan: Hemoglobin 6.5 on admission, 2 units of packed red blood cells as described above Repeat H/H following blood products is pending (11) Combined systolic and diastolic congestive heart failure: Plan: History of, do not have any previous records to indicate level of ventricular function prior to today Echocardiogram today 01/04 with normal LVEF, small pericardial effusion without evidence of tamponade, interpreted by Dr. Ruby No evidence of fulminant fluid overload at this time, will give IV fluids for sepsis and ARF at this time and cautious diuresis if absolutely necessary Cardiology is consulted this admission for concern about possible KS given abnormal EKG on admission (borderline ST elevations in leads I, II, aVF), troponins have been stable and very minimally elevated, continue to trend Case personally discussed with Dr. Ruby: Continue to monitor EKGs, suspect clinical presentation is more related to sepsis and hypoxia than ACS (12) Nephrolithiasis: Plan: Urology consulted for obstructive renal stone on the right side, Dr. Blake will follow peripherally until patient either becomes more clinically stable, or shows more definitive signs/symptoms of urosepsis secondary to obstructing stone (13) Complicated UTI (urinary tract infection): Plan: See above (14) Atelectasis: Plan: Patient is generally immobile at baseline, only helps with transfer from bed to wheelchair CT this admission showing atelectasis with near collapse of the left lower lobe (15) COPD (chronic obstructive pulmonary disease): Plan: History of, on 2 L nasal cannula Patient does not have any wheezing, less suspicious of COPD exacerbation at this point and lieu of anemia/sepsis/atelectasis on imaging Wean oxygen as tolerated with a goal SPO2 of ~90% Plan Patient continues to be severely ill, with guarded prognosis in the setting of acute hypoxic and hypercapnic respiratory failure, acute renal failure, shock liver, sepsis, possible acute GI bleed with symptomatic anemia. Case was discussed with Pulmonology and Nephrology at length today, as well as nursing s taff and respiratory therapy. Also relayed update on patient to her sister Ania, who is acting as point person to give information to the rest of the patient's family. Patient's is living, but due to history of CVA, aphasia, dementia history, is not likely to be able to make decisions on behalf of the patient Patient is DNR, DNI, no dialysis, no major surgeries (discussed with patient's sisters on 01/04/23) Admission and Anticipated Discharge Date Admission Date: January 04, 2023 Subjective This morning contacted by nursing due to patient's HR increasing, AFib with RVR noted. Patient is more responsive today, awakens to voice and tries to answer questions but cannot due to BIPAP. She is still very tired and will fall asleep after answering a few yes or no questions. Can shake head yes or no. Denies abdominal pain or chest pain. Denies feeling SOB on BIPAP. Review of Systems Review of Systems: All systems reviewed & are unremarkable except as noted in Subjective Physical Exam Constitutional: + ill appearing, + obese and + frail appearing Eyes: + anicteric sclerae Respiratory: + tachypneic Auscultation: lungs clear to auscultation bilaterally and + rhonchi Cardiovascular: Rate/Rhythm: + tachycardic and + irregularly irregular Heart Sounds: + murmur Extremities: no edema Gastrointestinal (Abdomen): Inspection/Auscultation: + abdomen distended and + hypoactive bowel sounds Musculoskeletal: Extremities: no cyanosis and no clubbing Skin: + turgor decreased and + ecchymosis; no jaundice Psychiatric: Orientation: + not alert and + not oriented x 3 Results & Data Results & Data ([facility]) Vital Signs (Past 12 Hours) Vital Signs Temp Pulse Pulse Resp BP Pulse Ox O2 Del Method 01/05/23 07:18 36.9 C 132 H 24 109/68 95 BiPAP 01/05/23 07:06 133 H 28 H 94 01/05/23 03:26 134 H 32 H 91 01/05/23 03:22 37.4 C 130 H 22 109/75 91 BiPAP 01/05/23 01:00 130 H 01/04/23 22:48 132 H 32 H 93 01/04/23 22:34 36.7 C 130 H 22 112/76 94 BiPAP 01/04/23 19:50 BiPAP 01/04/23 20:04 36.7 C 01/04/23 19:30 123 H 30 H 98/60 L 91 BiPAP 01/04/23 19:10 109 H 32 H 93 FiO2 01/05/23 07:18 01/05/23 07:06 60 01/05/23 03:26 60 01/05/23 03:22 01/05/23 01:00 01/04/23 22:48 60 01/04/23 22:34 01/04/23 19:50 01/04/23 20:04 01/04/23 19:30 01/04/23 19:10 45 PG Care Time/CCT Total # of Minutes Spent Total Time Spent with Patient: Total time spent is greater than 50% in coordination of care (as documented) at patient's floor/unit and/or counseling patient: Coding Level of Care Code 84689 SUB INP/OBS CARE 3/50MIN Diagnoses Acute and chronic respiratory failure with hypoxia J96.21 Hypercapnic respiratory failure J96.92 Acute on chronic renal failure N17.9; N18.9 Hyperkalemia E87.5 Metabolic acidosis E87.20 Acute GI bleeding K92.2 Sepsis A41.9 Atrial fibrillation with RVR I48.91 Shock liver K72.00 Symptomatic anemia D64.9 Combined systolic and diastolic congestive heart failure I50.40 Nephrolithiasis N20.0 Complicated UTI (urinary tract infection) N39.0 Atelectasis J98.11 COPD (chronic obstructive pulmonary disease) J44.9
[2023-01-05] MEDS ORDERED: METOPROLOL TARTRATE 1 MG/ML VIAL IV STA ×2 (07:39→10:02)
[2023-01-05 07:59] LABS: Albumin Level 3.2 gm/dl (3.4-5.0); Bilirubin,Total 0.5 mg/dl (0.2-1.0); Calcium 7.9 mg/dl (8.5-10.1); Potassium 4.8 mmol/L (3.5-5.1)
[2023-01-05 09:09] LABS: Estimated Average Glucose 117 mg/dl; Hemoglobin A1C 5.7 % (4.5-5.6)
[2023-01-05] MEDS: AZITHROMYCIN 500 MG in DEXTROSE 5% 250 ML IV SCH (09:13)
[2023-01-05] MEDS: CEFEPIME 500 MG in SYRINGE 0 ML IV SCH (09:13)
--- NOTE | 2023-01-05 09:21 | Gastrointestinal Consultation ---
Date of Consultation January 05, 2023 Assessment & Plan (1) Anemia: She has anemia and heme (+) stools but no overt bleeding. I do not plan any testing at this time with her tenuous respiratory status. If things change and bleeding becomes emergent we can revisit depending on her overall status. We will decide about evaluation later in her hospitalization if appropriate (2) Shock liver: Elevated LFT's on admit. Agree likely shock liver. Will follow. History of Present Illness Reason for Consultation: anemia Attending Physician: Heidi Zuniga, DO History of Present Illness 77 year old female admitted with respiratory issues and found to be anemic on admit. Had heme (+) stool but no history of bleeding. She is unable to give me any history at this time and requires bipap. Nurse reports she had small stool normal which was normal color without blood. Allergies Allergy/AdvReac Type Severity Reaction Status Date / Time ciprofloxacin Allergy Unknown Unknown Verified 01/04/23 10:39 lorazepam Allergy Unknown Unknown Verified 01/04/23 10:39 Penicillins Allergy Unknown Unknown Verified 01/04/23 10:39 Home Medications Medication Instructions Recorded Confirmed Type acetaminophen 650 mg 650 mg PO Q8H PRN Pain 01/04/23 01/04/23 History tablet,extended release bisacodyl 5 mg tablet 15 mg PO HS 01/04/23 01/04/23 History buprenorphine 4 mg-naloxone 1 mg 2 film sublingual DAILY 01/04/23 01/04/23 History sublingual film (Suboxone) clonidine 0.1 mg/24 hr weekly 0 mg topical TID PRN Back Pain 01/04/23 01/04/23 History transdermal patch dicyclomine 20 mg tablet 20 mg PO TID PRN Indigestion 01/04/23 01/04/23 History diphenhydramine HCl 25 mg capsule 25 mg PO Q6H PRN Allergy Symptoms 01/04/23 01/04/23 History (Benadryl) docusate sodium 100 mg capsule 100 mg PO DAILY 01/04/23 01/04/23 History hydroxyzine pamoate 50 mg capsule 50 mg PO TID PRN Anxiety 01/04/23 01/04/23 History (Vistaril) loratadine 10 mg tablet (Claritin) 10 mg PO DAILY PRN Allergy Symptoms 01/04/23 01/04/23 History multivitamin 1 tab PO QAM 01/04/23 01/04/23 History promethazine 25 mg tablet 25 mg PO Q6H PRN Pain 01/04/23 01/04/23 History quetiapine 50 mg tablet (Seroquel) 75 mg PO HS 01/04/23 01/04/23 History trazodone 150 mg tablet 150 mg PO HS 01/04/23 01/04/23 History Patient History Medical History Anemia Atherogenic dyslipidemia Benign essential hypertension Chronic indwelling Gifford catheter Combined systolic and diastolic congestive heart failure COPD (chronic obstructive pulmonary disease) PAF (paroxysmal atrial fibrillation) Type 2 diabetes mellitus Social History Smoking Status: Former smoker Second Hand Exposure: No; Do You Dip or Chew Tobacco: No; Hx Alcohol Use: No Hx Substance Use: No Preferred Language: Amharic Communication Ability: Effective Beliefs That Will Affect Care: None Current Living Situation: [facility] Current Living Situation Comment: [facility] Feels Safe at Home: Yes Safety Concerns: Feels Safe At This Time Assistive Devices: Glasses and Other Assistive Devices Comment: rahel Review of Systems Review of Systems: Unobtainable due to cognitive status Physical Exam Constitutional: + ill appearing Respiratory: + respiratory distress Cardiovascular: RRR, no murmur, no edema Gastrointestinal (Abdomen): normal bowel sounds, soft, nontender, no hepatosplenomegaly Results & Data ([facility]) Vital Signs (Past 12 Hours) Vital Signs Temp Pulse Pulse Resp BP BP Pulse Ox 01/05/23 08:38 126 H 28 H 94 01/05/23 07:48 132 H 109/68 01/05/23 07:18 36.9 C 132 H 24 109/68 95 01/05/23 07:06 133 H 28 H 94 01/05/23 03:26 134 H 32 H 91 01/05/23 03:22 37.4 C 130 H 22 109/75 91 01/05/23 01:00 130 H 01/04/23 22:48 132 H 32 H 93 01/04/23 22:34 36.7 C 130 H 22 112/76 94 O2 Del Method FiO2 01/05/23 08:38 60 01/05/23 07:48 01/05/23 07:18 BiPAP 01/05/23 07:06 60 01/05/23 03:26 60 01/05/23 03:22 BiPAP 01/05/23 01:00 01/04/23 22:48 60 01/04/23 22:34 BiPAP Laboratory Results 01/05/23 01/05/23 01/05/23 Range/Units 05:53 05:49 05:49 WBC 15.34 H (4.8-10.8) K/ul RBC 2.85 L (4.20-5.40) M/uL Hgb 7.8 L (12.0-16.0) g/dl Hct 24.6 L (37.0-47.0) % MCV 86.3 (80.0-100.0) fL MCH 27.4 (25.0-34.0) pg MCHC 31.7 L (32.0-36.0) g/dL RDW Std Deviation 50.9 H (36.4-46.3) fL RDW Coeff of Denny 16.1 H (11.5-14.5) % Plt Count 412 H (130-400) K/uL MPV 9.5 (9.4-12.4) fL Immature Gran % (Auto) 1.6 % Neut % (Auto) 88.6 % Lymph % (Auto) 3.5 % [place] % (Auto) 6.2 % Eos % (Auto) 0.0 % Baso % (Auto) 0.1 % Neut # (Auto) 13.59 H (1.40-6.50) K/uL Lymph # (Auto) 0.54 L (1.2-3.4) K/uL [place] # (Auto) 0.95 H (0.11-0.59) K/uL Eos # (Auto) 0.00 (0-0.50) K/uL Baso # (Auto) 0.02 (0-0.2) K/uL Immature Gran # (Auto) 0.24 H (0.01-0.20) K/uL Absolute Nucleated RBC 0.28 H (0-0.12) K/uL Nucleated RBC % (auto) 1.8 % Toxic Vacuolation 1+ Polychromasia 1+ PT (9.0-12.0) Seconds INR (0.9-1.1) APTT (21.0-31.0) Seconds PTT Ratio ABG pH (7.35-7.45) ABG pCO2 (35-46) mmHg ABG pO2 (80-95) mmHg ABG HCO3 (19-24) mmol/L ABG O2 Saturation (90-95) % ABG Base Excess (-9-1.8) mEq/L Fredrick Test (Pos) Oxygen Given Sodium 135 L (136-145) mmol/L Potassium 4.8 (3.5-5.1) mmol/L Chloride 100 (98-107) mmol/L Carbon Dioxide 18 L (21-32) mmol/L Anion Gap 17 H (3-11) BUN Pending (6-23) mg/dl Creatinine Pending (0.6-1.2) mg/dl Est Cr Clr Drug Dosing Pending Est GFR ( Amer) Pending ml/min Est GFR (Non-Af Amer) Pending ml/min BUN/Creatinine Ratio Pending (10-20) Glucose Pending (70-99(Fasting)) mg/dl POC Glucose 117 H (70-99) mg/dl Estimat Average Glucose mg/dl Hemoglobin A1c (4.5-5.6) % Calcium 7.9 L (8.5-10.1) mg/dl Total Bilirubin 0.5 (0.2-1.0) mg/dl AST Pending (13-39) U/L ALT Pending (7-52) U/L Alkaline Phosphatase Pending (34-104) U/L Troponin I High Sens (0-14) pg/ml Total Protein Pending (6.0-8.3) gm/dl Albumin 3.2 L (3.4-5.0) gm/dl Globulin Pending (2.5-4.0) gm/dl Albumin/Globulin Ratio Pending (0.9-2) Nasal Screen MRSA (PCR) (Negative) Blood Type Antibody Screen Crossmatch 01/05/23 01/05/23 01/05/23 Range/Units 05:49 00:36 00:28 WBC (4.8-10.8) K/ul RBC (4.20-5.40) M/uL Hgb (12.0-16.0) g/dl Hct (37.0-47.0) % MCV (80.0-100.0) fL MCH (25.0-34.0) pg MCHC (32.0-36.0) g/dL RDW Std Deviation (36.4-46.3) fL RDW Coeff of Denny (11.5-14.5) % Plt Count (130-400) K/uL MPV (9.4-12.4) fL Immature Gran % (Auto) % Neut % (Auto) % Lymph % (Auto) % [place] % (Auto) % Eos % (Auto) % Baso % (Auto) % Neut # (Auto) (1.40-6.50) K/uL Lymph # (Auto) (1.2-3.4) K/uL [place] # (Auto) (0.11-0.59) K/uL Eos # (Auto) (0-0.50) K/uL Baso # (Auto) (0-0.2) K/uL Immature Gran # (Auto) (0.01-0.20) K/uL Absolute Nucleated RBC (0-0.12) K/uL Nucleated RBC % (auto) % Toxic Vacuolation Polychromasia PT (9.0-12.0) Seconds INR (0.9-1.1) APTT (21.0-31.0) Seconds PTT Ratio ABG pH 7.26 L (7.35-7.45) ABG pCO2 46 (35-46) mmHg ABG pO2 63 L (80-95) mmHg ABG HCO3 21 (19-24) mmol/L ABG O2 Saturation 93.9 (90-95) % ABG Base Excess -6.5 (-9-1.8) mEq/L Fredrick Test Pos (Pos) Oxygen Given 60% FIO2 Sodium 133 L (136-145) mmol/L Potassium 5.1 (3.5-5.1) mmol/L Chloride 98 (98-107) mmol/L Carbon Dioxide 19 L (21-32) mmol/L Anion Gap 16 H (3-11) BUN 141 H (6-23) mg/dl Creatinine 4.43 H (0.6-1.2) mg/dl Est Cr Clr Drug Dosing 9.5 Est GFR ( Amer) 10.3 ml/min Est GFR (Non-Af Amer) 8.9 ml/min BUN/Creatinine Ratio 31.8 H (10-20) Glucose 111 H (70-99(Fasting)) mg/dl POC Glucose (70-99) mg/dl Estimat Average Glucose 117 mg/dl Hemoglobin A1c 5.7 H (4.5-5.6) % Calcium 8.3 L (8.5-10.1) mg/dl Total Bilirubin (0.2-1.0) mg/dl AST (13-39) U/L ALT (7-52) U/L Alkaline Phosphatase (34-104) U/L Troponin I High Sens (0-14) pg/ml Total Protein (6.0-8.3) gm/dl Albumin (3.4-5.0) gm/dl Globulin (2.5-4.0) gm/dl Albumin/Globulin Ratio (0.9-2) Nasal Screen MRSA (PCR) (Negative) Blood Type Antibody Screen Crossmatch 01/05/23 01/04/23 01/04/23 Range/Units 00:00 Unknown 19:56 WBC (4.8-10.8) K/ul RBC (4.20-5.40) M/uL Hgb (12.0-16.0) g/dl Hct (37.0-47.0) % MCV (80.0-100.0) fL MCH (25.0-34.0) pg MCHC (32.0-36.0) g/dL RDW Std Deviation (36.4-46.3) fL RDW Coeff of Denny (11.5-14.5) % Plt Count (130-400) K/uL MPV (9.4-12.4) fL Immature Gran % (Auto) % Neut % (Auto) % Lymph % (Auto) % [place] % (Auto) % Eos % (Auto) % Baso % (Auto) % Neut # (Auto) (1.40-6.50) K/uL Lymph # (Auto) (1.2-3.4) K/uL [place] # (Auto) (0.11-0.59) K/uL Eos # (Auto) (0-0.50) K/uL Baso # (Auto) (0-0.2) K/uL Immature Gran # (Auto) (0.01-0.20) K/uL Absolute Nucleated RBC (0-0.12) K/uL Nucleated RBC % (auto) % Toxic Vacuolation Polychromasia PT (9.0-12.0) Seconds INR (0.9-1.1) APTT (21.0-31.0) Seconds PTT Ratio ABG pH (7.35-7.45) ABG pCO2 (35-46) mmHg ABG pO2 (80-95) mmHg ABG HCO3 (19-24) mmol/L ABG O2 Saturation (90-95) % ABG Base Excess (-9-1.8) mEq/L Fredrick Test (Pos) Oxygen Given Sodium (136-145) mmol/L Potassium (3.5-5.1) mmol/L Chloride (98-107) mmol/L Carbon Dioxide (21-32) mmol/L Anion Gap (3-11) BUN (6-23) mg/dl Creatinine (0.6-1.2) mg/dl Est Cr Clr Drug Dosing Est GFR ( Amer) ml/min Est GFR (Non-Af Amer) ml/min BUN/Creatinine Ratio (10-20) Glucose (70-99(Fasting)) mg/dl POC Glucose 122 H (70-99) mg/dl Estimat Average Glucose mg/dl Hemoglobin A1c (4.5-5.6) % Calcium (8.5-10.1) mg/dl Total Bilirubin (0.2-1.0) mg/dl AST (13-39) U/L ALT (7-52) U/L Alkaline Phosphatase (34-104) U/L Troponin I High Sens 15.2 H D (0-14) pg/ml Total Protein (6.0-8.3) gm/dl Albumin (3.4-5.0) gm/dl Globulin (2.5-4.0) gm/dl Albumin/Globulin Ratio (0.9-2) Nasal Screen MRSA (PCR) Positive A (Negative) Blood Type Antibody Screen Crossmatch 01/04/23 01/04/23 01/04/23 Range/Units 19:11 16:22 16:22 WBC 16.77 H (4.8-10.8) K/ul RBC 3.01 L (4.20-5.40) M/uL Hgb 8.4 L (12.0-16.0) g/dl Hct 26.6 L (37.0-47.0) % MCV 88.4 (80.0-100.0) fL MCH 27.9 (25.0-34.0) pg MCHC 31.6 L (32.0-36.0) g/dL RDW Std Deviation 51.7 H (36.4-46.3) fL RDW Coeff of Denny 15.9 H (11.5-14.5) % Plt Count 434 H (130-400) K/uL MPV 9.5 (9.4-12.4) fL Immature Gran % (Auto) 3.9 % Neut % (Auto) 86.9 % Lymph % (Auto) 3.2 % [place] % (Auto) 5.8 % Eos % (Auto) 0.0 % Baso % (Auto) 0.2 % Neut # (Auto) 14.57 H (1.40-6.50) K/uL Lymph # (Auto) 0.53 L (1.2-3.4) K/uL [place] # (Auto) 0.97 H (0.11-0.59) K/uL Eos # (Auto) 0.00 (0-0.50) K/uL Baso # (Auto) 0.04 (0-0.2) K/uL Immature Gran # (Auto) 0.66 H (0.01-0.20) K/uL Absolute Nucleated RBC 0.31 H (0-0.12) K/uL Nucleated RBC % (auto) 1.8 % Toxic Vacuolation Polychromasia PT (9.0-12.0) Seconds INR (0.9-1.1) APTT (21.0-31.0) Seconds PTT Ratio ABG pH (7.35-7.45) ABG pCO2 (35-46) mmHg ABG pO2 (80-95) mmHg ABG HCO3 (19-24) mmol/L ABG O2 Saturation (90-95) % ABG Base Excess (-9-1.8) mEq/L Fredrick Test (Pos) Oxygen Given Sodium 131 L (136-145) mmol/L Potassium 5.3 H (3.5-5.1) mmol/L Chloride 94 L (98-107) mmol/L Carbon Dioxide 22 (21-32) mmol/L Anion Gap 15 H (3-11) BUN 144 H (6-23) mg/dl Creatinine 4.50 H (0.6-1.2) mg/dl Est Cr Clr Drug Dosing 9.3 Est GFR ( Amer) 10.1 ml/min Est GFR (Non-Af Amer) 8.7 ml/min BUN/Creatinine Ratio 32.0 H (10-20) Glucose 155 H (70-99(Fasting)) mg/dl POC Glucose 139 H (70-99) mg/dl Estimat Average Glucose mg/dl Hemoglobin A1c (4.5-5.6) % Calcium 8.8 (8.5-10.1) mg/dl Total Bilirubin (0.2-1.0) mg/dl AST (13-39) U/L ALT (7-52) U/L Alkaline Phosphatase (34-104) U/L Troponin I High Sens (0-14) pg/ml Total Protein (6.0-8.3) gm/dl Albumin (3.4-5.0) gm/dl Globulin (2.5-4.0) gm/dl Albumin/Globulin Ratio (0.9-2) Nasal Screen MRSA (PCR) (Negative) Blood Type Antibody Screen Crossmatch 01/04/23 01/04/23 01/04/23 Range/Units 15:41 14:33 12:32 WBC (4.8-10.8) K/ul RBC (4.20-5.40) M/uL Hgb (12.0-16.0) g/dl Hct (37.0-47.0) % MCV (80.0-100.0) fL MCH (25.0-34.0) pg MCHC (32.0-36.0) g/dL RDW Std Deviation (36.4-46.3) fL RDW Coeff of Denny (11.5-14.5) % Plt Count (130-400) K/uL MPV (9.4-12.4) fL Immature Gran % (Auto) % Neut % (Auto) % Lymph % (Auto) % [place] % (Auto) % Eos % (Auto) % Baso % (Auto) % Neut # (Auto) (1.40-6.50) K/uL Lymph # (Auto) (1.2-3.4) K/uL [place] # (Auto) (0.11-0.59) K/uL Eos # (Auto) (0-0.50) K/uL Baso # (Auto) (0-0.2) K/uL Immature Gran # (Auto) (0.01-0.20) K/uL Absolute Nucleated RBC (0-0.12) K/uL Nucleated RBC % (auto) % Toxic Vacuolation Polychromasia PT (9.0-12.0) Seconds INR (0.9-1.1) APTT (21.0-31.0) Seconds PTT Ratio ABG pH 7.19 L* (7.35-7.45) ABG pCO2 55 H (35-46) mmHg ABG pO2 71 L (80-95) mmHg ABG HCO3 21 (19-24) mmol/L ABG O2 Saturation 95.7 H (90-95) % ABG Base Excess -6.9 (-9-1.8) mEq/L Fredrick Test Pos (Pos) Oxygen Given 45% Sodium (136-145) mmol/L Potassium (3.5-5.1) mmol/L Chloride (98-107) mmol/L Carbon Dioxide (21-32) mmol/L Anion Gap (3-11) BUN (6-23) mg/dl Creatinine (0.6-1.2) mg/dl Est Cr Clr Drug Dosing Est GFR ( Amer) ml/min Est GFR (Non-Af Amer) ml/min BUN/Creatinine Ratio (10-20) Glucose (70-99(Fasting)) mg/dl POC Glucose 209 H (70-99) mg/dl Estimat Average Glucose mg/dl Hemoglobin A1c (4.5-5.6) % Calcium (8.5-10.1) mg/dl Total Bilirubin (0.2-1.0) mg/dl AST (13-39) U/L ALT (7-52) U/L Alkaline Phosphatase (34-104) U/L Troponin I High Sens 21.4 H (0-14) pg/ml Total Protein (6.0-8.3) gm/dl Albumin (3.4-5.0) gm/dl Globulin (2.5-4.0) gm/dl Albumin/Globulin Ratio (0.9-2) Nasal Screen MRSA (PCR) (Negative) Blood Type Antibody Screen Crossmatch 01/04/23 01/04/23 01/04/23 Range/Units 10:12 10:03 05:10 WBC (4.8-10.8) K/ul RBC (4.20-5.40) M/uL Hgb (12.0-16.0) g/dl Hct (37.0-47.0) % MCV (80.0-100.0) fL MCH (25.0-34.0) pg MCHC (32.0-36.0) g/dL RDW Std Deviation (36.4-46.3) fL RDW Coeff of Denny (11.5-14.5) % Plt Count (130-400) K/uL MPV (9.4-12.4) fL Immature Gran % (Auto) % Neut % (Auto) % Lymph % (Auto) % [place] % (Auto) % Eos % (Auto) % Baso % (Auto) % Neut # (Auto) (1.40-6.50) K/uL Lymph # (Auto) (1.2-3.4) K/uL [place] # (Auto) (0.11-0.59) K/uL Eos # (Auto) (0-0.50) K/uL Baso # (Auto) (0-0.2) K/uL Immature Gran # (Auto) (0.01-0.20) K/uL Absolute Nucleated RBC (0-0.12) K/uL Nucleated RBC % (auto) % Toxic Vacuolation Polychromasia PT (9.0-12.0) Seconds INR (0.9-1.1) APTT (21.0-31.0) Seconds PTT Ratio ABG pH 7.21 L (7.35-7.45) ABG pCO2 55 H (35-46) mmHg ABG pO2 79 L (80-95) mmHg ABG HCO3 22 (19-24) mmol/L ABG O2 Saturation 96.8 H (90-95) % ABG Base Excess -6.4 (-9-1.8) mEq/L Fredrick Test Pos (Pos) Oxygen Given 45% Sodium 130 L (136-145) mmol/L Potassium 5.6 H (3.5-5.1) mmol/L Chloride 92 L (98-107) mmol/L Carbon Dioxide 23 (21-32) mmol/L Anion Gap 15 H (3-11) BUN 141 H (6-23) mg/dl Creatinine 4.64 H* (0.6-1.2) mg/dl Est Cr Clr Drug Dosing Not Reportable Est GFR ( Amer) 9.7 ml/min Est GFR (Non-Af Amer) 8.4 ml/min BUN/Creatinine Ratio 30.4 H (10-20) Glucose 326 H* (70-99(Fasting)) mg/dl POC Glucose (70-99) mg/dl Estimat Average Glucose mg/dl Hemoglobin A1c (4.5-5.6) % Calcium 8.6 (8.5-10.1) mg/dl Total Bilirubin 0.6 (0.2-1.0) mg/dl AST 324 H (13-39) U/L ALT 957 H (7-52) U/L Alkaline Phosphatase 202 H (34-104) U/L Troponin I High Sens 18.7 H (0-14) pg/ml Total Protein 7.7 (6.0-8.3) gm/dl Albumin 3.5 (3.4-5.0) gm/dl Globulin 4.2 H (2.5-4.0) gm/dl Albumin/Globulin Ratio 0.8 L (0.9-2) Nasal Screen MRSA (PCR) (Negative) Blood Type B Positive Antibody Screen NEGATIVE Crossmatch See Detail 01/04/23 Range/Units 04:26 WBC (4.8-10.8) K/ul RBC (4.20-5.40) M/uL Hgb (12.0-16.0) g/dl Hct (37.0-47.0) % MCV (80.0-100.0) fL MCH (25.0-34.0) pg MCHC (32.0-36.0) g/dL RDW Std Deviation (36.4-46.3) fL RDW Coeff of Denny (11.5-14.5) % Plt Count (130-400) K/uL MPV (9.4-12.4) fL Immature Gran % (Auto) % Neut % (Auto) % Lymph % (Auto) % [place] % (Auto) % Eos % (Auto) % Baso % (Auto) % Neut # (Auto) (1.40-6.50) K/uL Lymph # (Auto) (1.2-3.4) K/uL [place] # (Auto) (0.11-0.59) K/uL Eos # (Auto) (0-0.50) K/uL Baso # (Auto) (0-0.2) K/uL Immature Gran # (Auto) (0.01-0.20) K/uL Absolute Nucleated RBC (0-0.12) K/uL Nucleated RBC % (auto) % Toxic Vacuolation Polychromasia PT 13.3 H (9.0-12.0) Seconds INR 1.3 H (0.9-1.1) APTT 32.8 H (21.0-31.0) Seconds PTT Ratio 1.2 ABG pH (7.35-7.45) ABG pCO2 (35-46) mmHg ABG pO2 (80-95) mmHg ABG HCO3 (19-24) mmol/L ABG O2 Saturation (90-95) % ABG Base Excess (-9-1.8) mEq/L Fredrick Test (Pos) Oxygen Given Sodium (136-145) mmol/L Potassium (3.5-5.1) mmol/L Chloride (98-107) mmol/L Carbon Dioxide (21-32) mmol/L Anion Gap (3-11) BUN (6-23) mg/dl Creatinine (0.6-1.2) mg/dl Est Cr Clr Drug Dosing Est GFR ( Amer) ml/min Est GFR (Non-Af Amer) ml/min BUN/Creatinine Ratio (10-20) Glucose (70-99(Fasting)) mg/dl POC Glucose (70-99) mg/dl Estimat Average Glucose mg/dl Hemoglobin A1c (4.5-5.6) % Calcium (8.5-10.1) mg/dl Total Bilirubin (0.2-1.0) mg/dl AST (13-39) U/L ALT (7-52) U/L Alkaline Phosphatase (34-104) U/L Troponin I High Sens (0-14) pg/ml Total Protein (6.0-8.3) gm/dl Albumin (3.4-5.0) gm/dl Globulin (2.5-4.0) gm/dl Albumin/Globulin Ratio (0.9-2) Nasal Screen MRSA (PCR) (Negative) Blood Type Antibody Screen Crossmatch Diagnostic Findings Chest X-Ray 01/04/23 03:51 XR chest 1V portable CLINICAL HISTORY: Dyspnea TECHNIQUE: Single frontal radiograph of the chest was obtained. Comparison: None available at the time of this dictation. FINDINGS: No lines and tubes are seen. Cardiomegaly is noted. There is a left retrocardiac opacity and small right lower lung opacity. No evidence of pleural effusion or pneumothorax. IMPRESSION: Bilateral lower lung airspace opacities compatible with atelectasis. ACT 112: Negative or not required by law. Electronically signed by: Renny Mccall M.D. 01/04/2023 8:46 AM Abdomen/Pelvis CT 01/04/23 06:06 CT abd pelvis wo con CLINICAL HISTORY: renal failure TECHNIQUE: Helical axial images of the abdomen and pelvis were obtained. Automated dose lowering techniques and/or adjustment according to patient size were utilized for this exam. This exam was performed without intravenous contrast. CT DOSE: 3140.52 mGy.cm COMPARISON: None available at the time of this dictation. FINDINGS: Lower chest: For findings above the diaphragm, please see CT chest performed same day. Liver: Unremarkable. No focal lesions are seen. Gallbladder and biliary tree: No calcified gallstones. Normal caliber wall. No intra- or extrahepatic biliary ductal dilation. Pancreas: Unremarkable, no focal lesions. Spleen: Unremarkable. Adrenals: Unremarkable. Kidneys and ureters: There is a 4 mm stone in the right proximal ureter. No significant hydronephrosis is seen, there is mild prominence of the proximal ureter. Nonobstructive stones are seen bilaterally. Bladder: Gifford catheter is seen. Reproductive organs: Unremarkable. Bowel: Diverticulosis is seen without evidence of diverticulitis. Lymph nodes Retroperitoneal: Subcentimeter lymph nodes are noted. Pelvic: Unremarkable. Mesenteric: Unremarkable. Peritoneum: Normal. Vessels: Atherosclerotic calcifications are seen. Abdominal wall: Right fat-containing inguinal hernia. Bones: Degenerative changes in the visualized spine. IMPRESSION: Stone in the right proximal ureter measuring 4 mm. There may be a small amount of hydroureter however no hydronephrosis is seen. Nonobstructive nephrolithiasis is otherwise noted. ACT 112: Negative or not required by law. Electronically signed by: Renny Mccall M.D. 01/04/2023 8:[address] 01/04/23 06:06 CT chest diagnostic wo con CLINICAL HISTORY: Respiratory Failure TECHNIQUE: Multidetector row helical CT of the chest was performed. Coronal and sagittal reformations were obtained. Automated dose lowering techniques and/or adjustment according to patient size were utilized for this exam. Comparison: None available at the time of this dictation. FINDINGS: Lungs and pleura: Atelectasis is seen most prominent in the left lower lobe. There is a 3 mm nodule in the left upper lobe (series 10 image 82). Heart and pericardium: Mitral annular calcifications are seen. There is a small pericardial effusion. Vessels: The pulmonary trunk is enlarged measuring 38 mm. Mild atherosclerotic disease is seen. Mediastinum and coby: Subcentimeter lymph nodes are seen. Chest wall and lower neck: Unremarkable. Abdomen: Unremarkable. Bones: Degenerative changes in the thoracic spine. IMPRESSION: 1. Atelectasis is seen with near collapse of the left lower lobe. 2. Cardiomegaly and pulmonary hypertension. ACT 112: Negative or not required by law. Electronically signed by: Renny Mccall M.D. 01/04/2023 8:[address] 01/04/23 06:06 CT head/brain wo con CLINICAL HISTORY: altered ms Technique: Contiguous axial CT images of the head were acquired from the base of the skull to the vertex without intravenous contrast administration. Images were viewed in brain, subdural and bone windows. Automated dose lowering techniques and/or adjustment according to patient size were utilized for this exam. Comparison: None available at the time of this dictation. Findings: Exam is limited by patient motion. Areas of decreased attenuation are present in the periventricular and subcortical white matter bilaterally consistent with small vessel ischemic disease. Generalized cerebral atrophy with commensurate enlargement of the ventricles, sulci, and cisterns is also present. There is no acute intracranial hemorrhage or evidence of acute territorial infarction. No shift of the midline structures, mass effect, or extra-axial abnormalities are shown. Atherosclerotic calcifications are present in the intracranial segments of the internal carotid arteries. Imaged portions of the paranasal sinuses and mastoid air cells are clear. The orbits appear normal. There are no acute fractures of the calvaria. Scalp swelling is seen in the left frontal soft tissues. Impression: No acute intracranial hemorrhage or skull fractures. Scalp swelling is seen in the left frontal soft tissues. ACT 112: Negative or not required by law. Electronically signed by: Renny Mccall M.D. 01/04/2023 7:57 AM
[2023-01-05 09:22] LABS: Albumin Globulin Ratio 0.9 (0.9-2); BUN Creatinine Ratio 33.4 (10-20); Creatinine Clr Calc Pharmacy 10.2 ml/min; Est GFR (African American) 11.2 ml/min; Est GFR (Non-African American) 9.6 ml/min; Globulin 3.7 gm/dl (2.5-4.0); Total Protein 6.9 gm/dl (6.0-8.3)
--- NOTE | 2023-01-05 09:31 | Nephrology Progress Note ---
Date of Service January 05, 2023 Assessment & Plan (1) Acute on chronic renal failure: Plan: Non-oliguric. ABDIAS attributed to decreased EAV in setting of sepsis/hemodynamic instability. Suspect superimposed ATN. Hyperkalemia improved with medical management. Possible component of bladder outlet obstruction which appears to have resolved with exchange of Gifford catheter. A 4 mm stone is appreciated in the proximal right ureter. Urology consultation reviewed. Kidney function slightly improved and signs of infection resolving. Blood culture NGTD. urine +GNR. Avoid aggressive diuresis. Improvement noted following PRBC support. Baseline creatinine 1.6-1.8 mg/dL. Dialysis not to be considered part of care plan based on advanced directive. Document strict I/O. Avoid aggressive diuresis. Repeat metabolic profile this evening. (2) Hyperkalemia: Plan: Improved. (3) Combined systolic and diastolic congestive heart failure: Plan: TTE reviewed. Document I/O's. Diuretics held. (4) Complicated UTI (urinary tract infection): Plan: Culture +GNR. Remains on cefepime, daptomycin, and azithromycin. (5) Chronic indwelling Gifford catheter: (6) Anemia: Plan: Acute on chronic. PRBC transfusion support provided. GI consult pending. Occult +. (7) PAF (paroxysmal atrial fibrillation): Plan: Cardiology consult appreciated. (8) COPD (chronic obstructive pulmonary disease): Plan: Remains on BIPAP for acute hypercapnic respiratory failure. Admission and Anticipated Discharge Date Admission Date: January 04, 2023 Subjective No acute events overnight. More awake this AM. Remains on BIPAP. Did not answer questions. Afebrile. Non-oliguric. No melena or hematochezia reported per nursing. Single small bowel movement reported. Remains in atrial fibrillation on monitor. Review of Systems Review of Systems: All systems reviewed & are unremarkable except as noted in HPI & below and Other (limited due to mental status) Physical Exam Constitutional: + ill appearing, + obese and + frail appearing Eyes: + anicteric sclerae; pupils not irregular Neck: normal visual inspection and trachea midline Respiratory: + tachypneic Auscultation: lungs clear to auscultation bilaterally, + rales and + rhonchi Cardiovascular: Rate/Rhythm: + tachycardic and + irregularly irregular Heart Sounds: normal S1, normal S2 and + murmur Vessels: + JVD Extremities: no edema Gastrointestinal (Abdomen): Inspection/Auscultation: + abdomen distended and + hypoactive bowel sounds Percussion/Palpation: abdomen soft and + tympanic to percussion; abdomen not rigid Musculoskeletal: Extremities: no cyanosis and no clubbing Skin: + turgor decreased and + ecchymosis; no jaundice Neurologic: Speech / Cognition: + abnormal cognition Motor/Sensory: no fasciculations and no asterixis Psychiatric: Orientation: + not alert Results & Data ([facility]) Vital Signs (Past 12 Hours) Vital Signs Temp Pulse Pulse Resp BP BP Pulse Ox 01/05/23 08:38 126 H 28 H 94 01/05/23 07:48 132 H 109/68 01/05/23 07:18 36.9 C 132 H 24 109/68 95 01/05/23 07:06 133 H 28 H 94 01/05/23 03:26 134 H 32 H 91 01/05/23 03:22 37.4 C 130 H 22 109/75 91 01/05/23 01:00 130 H 01/04/23 22:48 132 H 32 H 93 01/04/23 22:34 36.7 C 130 H 22 112/76 94 O2 Del Method FiO2 01/05/23 08:38 60 01/05/23 07:48 01/05/23 07:18 BiPAP 01/05/23 07:06 60 01/05/23 03:26 60 01/05/23 03:22 BiPAP 01/05/23 01:00 01/04/23 22:48 60 01/04/23 22:34 BiPAP Laboratory Results Laboratory Results - last 24 hr 01/04/23 01/04/23 01/04/23 04:26 05:10 10:03 WBC RBC Hgb Hct MCV MCH MCHC RDW Std Deviation RDW Coeff of Denny Plt Count MPV Immature Gran % (Auto) Neut % (Auto) Lymph % (Auto) Hardin % (Auto) Eos % (Auto) Baso % (Auto) Neut # (Auto) Lymph # (Auto) Hardin # (Auto) Eos # (Auto) Baso # (Auto) Immature Gran # (Auto) Absolute Nucleated RBC Nucleated RBC % (auto) Toxic Vacuolation Polychromasia PT 13.3 H INR 1.3 H APTT 32.8 H PTT Ratio 1.2 ABG pH ABG pCO2 ABG pO2 ABG HCO3 ABG O2 Saturation ABG Base Excess Fredrick Test Oxygen Given Sodium 130 L Potassium 5.6 H Chloride 92 L Carbon Dioxide 23 Anion Gap 15 H BUN 141 H Creatinine 4.64 H* Est Cr Clr Drug Dosing Not Reportable Est GFR ( Amer) 9.7 Est GFR (Non-Af Amer) 8.4 BUN/Creatinine Ratio 30.4 H Glucose 326 H* POC Glucose Estimat Average Glucose Hemoglobin A1c Calcium 8.6 Total Bilirubin 0.6 AST 324 H ALT 957 H Alkaline Phosphatase 202 H Troponin I High Sens 18.7 H Total Protein 7.7 Albumin 3.5 Globulin 4.2 H Albumin/Globulin Ratio 0.8 L Nasal Screen MRSA (PCR) Blood Type B Positive Antibody Screen NEGATIVE Crossmatch See Detail 01/04/23 01/04/23 01/04/23 10:12 12:32 14:33 WBC RBC Hgb Hct MCV MCH MCHC RDW Std Deviation RDW Coeff of Denny Plt Count MPV Immature Gran % (Auto) Neut % (Auto) Lymph % (Auto) Hardin % (Auto) Eos % (Auto) Baso % (Auto) Neut # (Auto) Lymph # (Auto) Hardin # (Auto) Eos # (Auto) Baso # (Auto) Immature Gran # (Auto) Absolute Nucleated RBC Nucleated RBC % (auto) Toxic Vacuolation Polychromasia PT INR APTT PTT Ratio ABG pH 7.21 L ABG pCO2 55 H ABG pO2 79 L ABG HCO3 22 ABG O2 Saturation 96.8 H ABG Base Excess -6.4 Fredrick Test Pos Oxygen Given 45% Sodium Potassium Chloride Carbon Dioxide Anion Gap BUN Creatinine Est Cr Clr Drug Dosing Est GFR ( Amer) Est GFR (Non-Af Amer) BUN/Creatinine Ratio Glucose POC Glucose 209 H Estimat Average Glucose Hemoglobin A1c Calcium Total Bilirubin AST ALT Alkaline Phosphatase Troponin I High Sens 21.4 H Total Protein Albumin Globulin Albumin/Globulin Ratio Nasal Screen MRSA (PCR) Blood Type Antibody Screen Crossmatch 01/04/23 01/04/23 01/04/23 15:41 16:22 16:22 WBC 16.77 H RBC 3.01 L Hgb 8.4 L Hct 26.6 L MCV 88.4 MCH 27.9 MCHC 31.6 L RDW Std Deviation 51.7 H RDW Coeff of Denny 15.9 H Plt Count 434 H MPV 9.5 Immature Gran % (Auto) 3.9 Neut % (Auto) 86.9 Lymph % (Auto) 3.2 Hardin % (Auto) 5.8 Eos % (Auto) 0.0 Baso % (Auto) 0.2 Neut # (Auto) 14.57 H Lymph # (Auto) 0.53 L Hardin # (Auto) 0.97 H Eos # (Auto) 0.00 Baso # (Auto) 0.04 Immature Gran # (Auto) 0.66 H Absolute Nucleated RBC 0.31 H Nucleated RBC % (auto) 1.8 Toxic Vacuolation Polychromasia PT INR APTT PTT Ratio ABG pH 7.19 L* ABG pCO2 55 H ABG pO2 71 L ABG HCO3 21 ABG O2 Saturation 95.7 H ABG Base Excess -6.9 Fredrick Test Pos Oxygen Given 45% Sodium 131 L Potassium 5.3 H Chloride 94 L Carbon Dioxide 22 Anion Gap 15 H BUN 144 H Creatinine 4.50 H Est Cr Clr Drug Dosing 9.3 Est GFR ( Amer) 10.1 Est GFR (Non-Af Amer) 8.7 BUN/Creatinine Ratio 32.0 H Glucose 155 H POC Glucose Estimat Average Glucose Hemoglobin A1c Calcium 8.8 Total Bilirubin AST ALT Alkaline Phosphatase Troponin I High Sens Total Protein Albumin Globulin Albumin/Globulin Ratio Nasal Screen MRSA (PCR) Blood Type Antibody Screen Crossmatch 01/04/23 01/04/23 01/04/23 19:11 19:56 Unknown WBC RBC Hgb Hct MCV MCH MCHC RDW Std Deviation RDW Coeff of Denny Plt Count MPV Immature Gran % (Auto) Neut % (Auto) Lymph % (Auto) Hardin % (Auto) Eos % (Auto) Baso % (Auto) Neut # (Auto) Lymph # (Auto) Hardin # (Auto) Eos # (Auto) Baso # (Auto) Immature Gran # (Auto) Absolute Nucleated RBC Nucleated RBC % (auto) Toxic Vacuolation Polychromasia PT INR APTT PTT Ratio ABG pH ABG pCO2 ABG pO2 ABG HCO3 ABG O2 Saturation ABG Base Excess Fredrick Test Oxygen Given Sodium Potassium Chloride Carbon Dioxide Anion Gap BUN Creatinine Est Cr Clr Drug Dosing Est GFR ( Amer) Est GFR (Non-Af Amer) BUN/Creatinine Ratio Glucose POC Glucose 139 H Estimat Average Glucose Hemoglobin A1c Calcium Total Bilirubin AST ALT Alkaline Phosphatase Troponin I High Sens 15.2 H D Total Protein Albumin Globulin Albumin/Globulin Ratio Nasal Screen MRSA (PCR) Positive A Blood Type Antibody Screen Crossmatch 01/05/23 01/05/23 01/05/23 00:00 00:28 00:36 WBC RBC Hgb Hct MCV MCH MCHC RDW Std Deviation RDW Coeff of Denny Plt Count MPV Immature Gran % (Auto) Neut % (Auto) Lymph % (Auto) Hardin % (Auto) Eos % (Auto) Baso % (Auto) Neut # (Auto) Lymph # (Auto) Hardin # (Auto) Eos # (Auto) Baso # (Auto) Immature Gran # (Auto) Absolute Nucleated RBC Nucleated RBC % (auto) Toxic Vacuolation Polychromasia PT INR APTT PTT Ratio ABG pH 7.26 L ABG pCO2 46 ABG pO2 63 L ABG HCO3 21 ABG O2 Saturation 93.9 ABG Base Excess -6.5 Fredrick Test Pos Oxygen Given 60% FIO2 Sodium 133 L Potassium 5.1 Chloride 98 Carbon Dioxide 19 L Anion Gap 16 H BUN 141 H Creatinine 4.43 H Est Cr Clr Drug Dosing 9.5 Est GFR ( Amer) 10.3 Est GFR (Non-Af Amer) 8.9 BUN/Creatinine Ratio 31.8 H Glucose 111 H POC Glucose 122 H Estimat Average Glucose Hemoglobin A1c Calcium 8.3 L Total Bilirubin AST ALT Alkaline Phosphatase Troponin I High Sens Total Protein Albumin Globulin Albumin/Globulin Ratio Nasal Screen MRSA (PCR) Blood Type Antibody Screen Crossmatch 01/05/23 01/05/23 01/05/23 05:49 05:49 05:49 WBC 15.34 H RBC 2.85 L Hgb 7.8 L Hct 24.6 L MCV 86.3 MCH 27.4 MCHC 31.7 L RDW Std Deviation 50.9 H RDW Coeff of Denny 16.1 H Plt Count 412 H MPV 9.5 Immature Gran % (Auto) 1.6 Neut % (Auto) 88.6 Lymph % (Auto) 3.5 Hardin % (Auto) 6.2 Eos % (Auto) 0.0 Baso % (Auto) 0.1 Neut # (Auto) 13.59 H Lymph # (Auto) 0.54 L Hardin # (Auto) 0.95 H Eos # (Auto) 0.00 Baso # (Auto) 0.02 Immature Gran # (Auto) 0.24 H Absolute Nucleated RBC 0.28 H Nucleated RBC % (auto) 1.8 Toxic Vacuolation 1+ Polychromasia 1+ PT INR APTT PTT Ratio ABG pH ABG pCO2 ABG pO2 ABG HCO3 ABG O2 Saturation ABG Base Excess Fredrick Test Oxygen Given Sodium 135 L Potassium 4.8 Chloride 100 Carbon Dioxide 18 L Anion Gap 17 H BUN 138 H Creatinine 4.13 H D Est Cr Clr Drug Dosing 10.2 Est GFR ( Amer) 11.2 Est GFR (Non-Af Amer) 9.6 BUN/Creatinine Ratio 33.4 H Glucose 105 H POC Glucose Estimat Average Glucose 117 Hemoglobin A1c 5.7 H Calcium 7.9 L Total Bilirubin 0.5 AST 121 H ALT 676 H Alkaline Phosphatase 158 H Troponin I High Sens Total Protein 6.9 Albumin 3.2 L Globulin 3.7 Albumin/Globulin Ratio 0.9 Nasal Screen MRSA (PCR) Blood Type Antibody Screen Crossmatch 01/05/23 05:53 WBC RBC Hgb Hct MCV MCH MCHC RDW Std Deviation RDW Coeff of Denny Plt Count MPV Immature Gran % (Auto) Neut % (Auto) Lymph % (Auto) Hardin % (Auto) Eos % (Auto) Baso % (Auto) Neut # (Auto) Lymph # (Auto) Hardin # (Auto) Eos # (Auto) Baso # (Auto) Immature Gran # (Auto) Absolute Nucleated RBC Nucleated RBC % (auto) Toxic Vacuolation Polychromasia PT INR APTT PTT Ratio ABG pH ABG pCO2 ABG pO2 ABG HCO3 ABG O2 Saturation ABG Base Excess Fredrick Test Oxygen Given Sodium Potassium Chloride Carbon Dioxide Anion Gap BUN Creatinine Est Cr Clr Drug Dosing Est GFR ( Amer) Est GFR (Non-Af Amer) BUN/Creatinine Ratio Glucose POC Glucose 117 H Estimat Average Glucose Hemoglobin A1c Calcium Total Bilirubin AST ALT Alkaline Phosphatase Troponin I High Sens Total Protein Albumin Globulin Albumin/Globulin Ratio Nasal Screen MRSA (PCR) Blood Type Antibody Screen Crossmatch PG Care Time/CCT Total # of Minutes Spent Total Time Spent with Patient: Total time spent is greater than 50% in coordination of care (as documented) at patient's floor/unit and/or counseling patient: Coding Level of Care Code 78911 SUB INP/OBS CARE 3/50MIN Diagnoses Acute on chronic renal failure N17.9; N18.9 Hyperkalemia E87.5 Combined systolic and diastolic congestive heart failure I50.40 Complicated UTI (urinary tract infection) N39.0 Chronic indwelling Gifford catheter Z97.8 Anemia D64.9 PAF (paroxysmal atrial fibrillation) I48.0 COPD (chronic obstructive pulmonary disease) J44.9
[2023-01-05] MEDS ORDERED: LINEZOLID 600 MG/300 ML D5W IV SCH (10:00)
[2023-01-05] MEDS ORDERED: SODIUM CHLORIDE 0.9% 1000ML 250 ML IV ONE ×2 (10:02→18:00)
--- NOTE | 2023-01-05 10:22 | Electrocardiogram Report ---
Test Reason : Blood Pressure : / mmHG Vent. Rate : 088 BPM Atrial Rate : 088 BPM P-R Int : 176 ms QRS Dur : 094 ms QT Int : 364 ms P-R-T Axes : 043 062 022 degrees QTc Int : 440 ms Normal sinus rhythm Possible Left atrial enlargement ST elevation consider inferolateral injury or acute infarct ACUTE [place] / STEMI Abnormal ECG When compared with ECG of 04-JAN-2023 03:44, Sinus rhythm has replaced Atrial flutter ST more elevated in Inferior leads and lateral leads ST no longer depressed in Anterior leads Confirmed by Pavan Colón ([id number]) on 01/05/2023 10:22:10 AM Referred By: [facility] Confirmed By:Pavan Colón
--- NOTE | 2023-01-05 10:22 | Electrocardiogram Report ---
Test Reason : Blood Pressure : / mmHG Vent. Rate : 089 BPM Atrial Rate : 089 BPM P-R Int : 180 ms QRS Dur : 098 ms QT Int : 358 ms P-R-T Axes : 057 062 019 degrees QTc Int : 435 ms Normal sinus rhythm Possible Left atrial enlargement ST elevation consider inferolateral injury or acute infarct ACUTE [place] / STEMI Abnormal ECG When compared with ECG of 04-JAN-2023 06:13, (unconfirmed) No significant change was found Confirmed by Pavan Colón ([id number]) on 01/05/2023 10:22:21 AM Referred By: [facility] Confirmed By:Pavan Colón
--- NOTE | 2023-01-05 10:23 | Electrocardiogram Report ---
Test Reason : Blood Pressure : / mmHG Vent. Rate : 087 BPM Atrial Rate : 087 BPM P-R Int : 176 ms QRS Dur : 104 ms QT Int : 374 ms P-R-T Axes : 042 060 018 degrees QTc Int : 450 ms Normal sinus rhythm Possible Left atrial enlargement ST elevation consider inferolateral injury or acute infarct ACUTE [place] / STEMI Abnormal ECG When compared with ECG of 04-JAN-2023 06:14, (unconfirmed) No significant change was found Confirmed by Pavan Colón ([id number]) on 01/05/2023 10:23:18 AM Referred By: [facility] Confirmed By:Pavan Colón
--- NOTE | 2023-01-05 10:38 | XRay Report ---
SINGLE VIEW CHEST CLINICAL HISTORY: Hypoxia. FINDINGS: An AP, portable, upright chest radiograph is compared to chest x-ray and chest CT dated 12/25. The examination is degraded by portable technique and patient rotation. The heart is enlarged noting atherosclerotic calcification of the thoracic aorta. There is pulmonary vascular congestion. The mitral annulus is densely calcified. Emphysema and chronic interstitial thickening is similar to previous. There is a left pleural effusion with left basilar consolidation. Atelectasis is seen at th e right lung base. No pneumothorax is seen. The skeletal structures are osteopenic. The bony thorax i s grossly intact. IMPRESSION: 1. Cardiomegaly and emphysema with mild pulmonary vascular congestion. 2. Layering left pleural effusion with left basilar consolidation. This could represent atelectasis a nd/or pneumonia. Clinical correlation will be required and radiographic follow-up to resolution is re commended. ACT 112: Negative or not required by law. Electronically signed by: Aki Guillaume M.D. 01/05/2023 10:37 AM
--- NOTE | 2023-01-05 10:57 | Electrocardiogram Report ---
Test Reason : Blood Pressure : / mmHG Vent. Rate : 119 BPM Atrial Rate : 182 BPM P-R Int : 000 ms QRS Dur : 074 ms QT Int : 276 ms P-R-T Axes : 000 096 010 degrees QTc Int : 388 ms Atrial fibrillation with rapid ventricular response Rightward axis ST elevation consider inferior injury or acute infarct ACUTE [place] / STEMI Abnormal ECG When compared with ECG of 04-JAN-2023 07:36, (unconfirmed) Atrial fibrillation has replaced Sinus rhythm Confirmed by Pavan Colón ([id number]) on 01/05/2023 10:57:02 AM Referred By: [facility] Confirmed By:Pavan Colón
--- NOTE | 2023-01-05 11:08 | Urology Progress Note ---
Date of Service January 05, 2023 Assessment & Plan (1) Acute renal failure (ARF): (2) Nephrolithiasis: (3) Complicated UTI (urinary tract infection): Plan Complex patient with numerous chronic and acute issues Has had some improvement in creatinine overnight Good urine output Still remains tachypneic and tachycardic and substantially dependent on BiPAP Although she has an obstructing kidney stone I am not certain that her overall health is quite suited for any surgical intervention We will continue to observe for now and manage conservatively Admission and Anticipated Discharge Date Admission Date: January 04, 2023 Subjective No major changes overnight Remains on BiPAPO2 saturations still in the low 90s Tachypneic Tachycardic Stable BPs Afebrile but relatively low temperatures overnight She is not particularly interactive but denies any flank pain Gifford catheter in place draining clear urine Physical Exam Physical Exam: BiPAP in place Opens her eyes and responds to questions but accuracy of her answers is questionable Abdomen soft, does not demonstrate any pain with palpation and denies any tenderness Gifford catheter in place draining clear urine Results & Data ([facility]) Vital Signs (Past 12 Hours) Vital Signs Temp Pulse Pulse Resp BP BP Pulse Ox 01/05/23 10:31 93/57 L 01/05/23 07:20 01/05/23 07:20 151 H 01/05/23 08:38 126 H 28 H 94 01/05/23 07:48 132 H 109/68 01/05/23 07:18 36.9 C 132 H 24 109/68 95 01/05/23 07:06 133 H 28 H 94 01/05/23 03:26 134 H 32 H 91 01/05/23 03:22 37.4 C 130 H 22 109/75 91 01/05/23 01:00 130 H 01/04/23 22:48 132 H 32 H 93 01/04/23 22:34 36.7 C 130 H 22 112/76 94 O2 Del Method FiO2 01/05/23 10:31 01/05/23 07:20 BiPAP 01/05/23 07:20 01/05/23 08:38 60 01/05/23 07:48 01/05/23 07:18 BiPAP 01/05/23 07:06 60 01/05/23 03:26 60 01/05/23 03:22 BiPAP 01/05/23 01:00 01/04/23 22:48 60 01/04/23 22:34 BiPAP PG Care Time/CCT Total # of Minutes Spent Total Time Spent with Patient: Total time spent is greater than 50% in coordination of care (as documented) at patient's floor/unit and/or counseling patient: Coding Level of Care Code 83525 SUB INP/OBS CARE 2/35MIN Diagnoses Acute renal failure (ARF) N17.9 Acute renal failure type: unspecified Nephrolithiasis N20.0 Complicated UTI (urinary tract infection) N39.0 (1) Acute renal failure (ARF) Acute renal failure type: unspecified Qualified Code(s): N17.9 - Acute kidney failure, unspecified
[2023-01-05] MEDS: LINEZOLID 600 MG/300 ML BAG IV SCH ×2 (11:34→23:23)
--- NOTE | 2023-01-05 11:35 | Pulmonary Consultation ---
Date of Consultation January 05, 2023 Assessment & Plan (1) Acute respiratory failure: Continue broad-spectrum antibiotics. Continue BiPAP therapy and wean FiO2 to maintain saturations above 92%. Possible left lower lobe pneumonia. (2) Atelectasis of left lung: Start airway clearance therapies including hypertonic saline twice daily, CoughAssist twice daily, and percussive vest therapy. Patient is a poor candidate for bronchoscopy given her tenuous respiratory status and atrial fi brillation with rapid ventricular response. (3) Acute renal failure (ARF): Management per primary team. Receiving crystalloid boluses. Consider albumin. Acute renal failure type: unspecified Qualified Code(s): N17.9 - Acute kidney failure, unspecified (4) PAF (paroxysmal atrial fibrillation): Continues to be poorly rate controlled. Rate control limited due to borderline hypotension. Consider utilizing amiodarone. Plan Thank you for allowing us to participate in the care of the patient. We will continue to follow with you. Plan discussed with bedside nursing, respiratory therapy and hospitalist over the phone. History of Present Illness Reason for Consultation: Hypoxic respiratory failure. Attending Physician: Heidi Zuniga DO History of Present Illness 77-year-old female with history of chronic hypoxic respiratory failure, A-fib and chronic indwelling Gifford catheter who presents to the hospital due to hypoxia and shortness of breath. History is limited from the patient as she is currently encephalopathic. She is currently on BiPAP therapy. She has evidence of left lower lobe atelectasis due to poor airway clearance and poor cough mechanism. She was found to be in severe sepsis and was admitted to PCU. She is on broad-spectrum antibiotics. There was concern about an obstructed ureter, but she is a poor candidate for urological procedure given her tenuous respiratory status and hemodynamics. She is currently a DNR/DNI. History is mostly obtained from chart review, discussion with hospitalist provider and bedside nursing. . She remains on BiPAP. She has a significant leak due to initial fitting mask. This was adjusted by me with better tidal volumes obtained. She initially had hypercarbic respiratory failure which appears to be improved. Now her issue seems to be more of her metabolic acidosis related to sepsis and infection. Allergies Allergy/AdvReac Type Severity Reaction Status Date / Time ciprofloxacin Allergy Unknown Unknown Verified 01/04/23 10:39 lorazepam Allergy Unknown Unknown Verified 01/04/23 10:39 Penicillins Allergy Unknown Unknown Verified 01/04/23 10:39 Home Medications Medication Instructions Recorded Confirmed Type acetaminophen 650 mg 650 mg PO Q8H PRN Pain 01/04/23 01/04/23 History tablet,extended release bisacodyl 5 mg tablet 15 mg PO HS 01/04/23 01/04/23 History buprenorphine 4 mg-naloxone 1 mg 2 film sublingual DAILY 01/04/23 01/04/23 History sublingual film (Suboxone) clonidine 0.1 mg/24 hr weekly 0 mg topical TID PRN Back Pain 01/04/23 01/04/23 History transdermal patch dicyclomine 20 mg tablet 20 mg PO TID PRN Indigestion 01/04/23 01/04/23 History diphenhydramine HCl 25 mg capsule 25 mg PO Q6H PRN Allergy Symptoms 01/04/23 01/04/23 History (Benadryl) docusate sodium 100 mg capsule 100 mg PO DAILY 01/04/23 01/04/23 History hydroxyzine pamoate 50 mg capsule 50 mg PO TID PRN Anxiety 01/04/23 01/04/23 History (Vistaril) loratadine 10 mg tablet (Claritin) 10 mg PO DAILY PRN Allergy Symptoms 01/04/23 01/04/23 History multivitamin 1 tab PO QAM 01/04/23 01/04/23 History promethazine 25 mg tablet 25 mg PO Q6H PRN Pain 01/04/23 01/04/23 History quetiapine 50 mg tablet (Seroquel) 75 mg PO HS 01/04/23 01/04/23 History trazodone 150 mg tablet 150 mg PO HS 01/04/23 01/04/23 History Patient History Medical History (Updated 01/05/23 @ 11:32 by Yoshi Nicolas MD) Anemia Atelectasis of left lung Atherogenic dyslipidemia Benign essential hypertension Chronic indwelling Gifford catheter Combined systolic and diastolic congestive heart failure COPD (chronic obstructive pulmonary disease) PAF (paroxysmal atrial fibrillation) Type 2 diabetes mellitus Social History Smoking Status: Former smoker Second Hand Exposure: No; Do You Dip or Chew Tobacco: No; Hx Alcohol Use: No Hx Substance Use: No Preferred Language: Armenian Communication Ability: Effective Beliefs That Will Affect Care: None Current Living Situation: [facility] Current Living Situation Comment: [place] Feels Safe at Home: Yes Safety Concerns: Feels Safe At This Time Assistive Devices: Glasses and Other Assistive Devices Comment: rahel Review of Systems Review of Systems: All systems reviewed & are unremarkable except as noted in HPI & below Physical Exam Physical Exam: Constitutional: Moderate distress. BiPAP mask in place. Not oriented. Tachypneic. Eyes: Pupils are equal round and reactive to light. Conjunctivae are normal. Anicteric sclera. Ears nose, mouth and throat: Mallampati class 2. Normal posterior oropharynx. Uvula is midline. Neck: Trachea is midline. Visual inspection is normal. Respiratory: Diminished bilaterally. Tachypneic. Cardiovascular: Tachycardic. Irregular. No murmurs. No edema. Gastrointestinal: Normal bowel sounds, soft, nontender and nondistended. No hepatosplenomegaly noted. Musculoskeletal: No cyanosis. Patient is able to move all extremities. Strength is 5 out of 5 in the upper and lower extremities. Skin: No rashes, warm dry and intact. Neurologic: No obvious focal neurological deficits seen. Psychiatric: Appears anxious and disoriented. Results & Data Results & Data ([facility]) Vital Signs (Past 12 Hours) Vital Signs Temp Pulse Pulse Resp BP BP Pulse Ox 01/05/23 11:24 36.4 C L 126 H 24 104/68 98 01/05/23 11:19 01/05/23 10:31 93/57 L 01/05/23 07:20 01/05/23 07:20 151 H 01/05/23 08:38 126 H 28 H 94 01/05/23 07:48 132 H 109/68 01/05/23 07:18 36.9 C 132 H 24 109/68 95 01/05/23 07:06 133 H 28 H 94 01/05/23 03:26 134 H 32 H 91 01/05/23 03:22 37.4 C 130 H 22 109/75 91 01/05/23 01:00 130 H 01/04/23 22:48 132 H 32 H 93 01/04/23 22:34 36.7 C 130 H 22 112/76 94 O2 Del Method FiO2 01/05/23 11:24 BiPAP 01/05/23 11:19 60 01/05/23 10:31 01/05/23 07:20 BiPAP 01/05/23 07:20 01/05/23 08:38 60 01/05/23 07:48 01/05/23 07:18 BiPAP 01/05/23 07:06 60 01/05/23 03:26 60 01/05/23 03:22 BiPAP 01/05/23 01:00 01/04/23 22:48 60 01/04/23 22:34 BiPAP PG Care Time/CCT Total # of Minutes Spent Total Time Spent with Patient: Total time spent is greater than 50% in coordination of care (as documented) at patient's floor/unit and/or counseling patient: Coding Level of Care Code 19513 INT INP/OBS CARE 3/75MIN Diagnoses Acute respiratory failure J96.00 Atelectasis of left lung J98.11 Acute renal failure (ARF) N17.9 Acute renal failure type: unspecified PAF (paroxysmal atrial fibrillation) I48.0
[2023-01-05] MEDS ORDERED: LANTUS PER UNIT CHARGE SQ ONE (12:15)
[2023-01-05] MEDS ORDERED: STAT IV Infusion **Titration per Protocol STA (12:43)
[2023-01-05] MEDS ORDERED: 0.2 MICRON FILTER SET 1 EACH IV STA (12:43)
[2023-01-05] MEDS ORDERED: AMIODARONE IV BOLUS & DRIP IV STA (12:43)
[2023-01-05] MEDS ORDERED: AMIODARONE / D5W 150 MG/100 ML BAG IV STA (12:48)
[2023-01-05] MEDS ORDERED: AMIODARONE / D5W 360 MG/200 ML BAG IV ONE (13:00)
[2023-01-05] MEDS ORDERED: SODIUM CHLORIDE 0.9% 1000ML 250 ML IV SCH (13:00)
[2023-01-05 15:35] LABS: Base Excess ABG -8.2 mEq/L (-9-1.8); HCO3 ABG 19 mmol/L (19-24); Oxygen Saturation ABG 98.6 % (90-95); PCO2 ABG 46 mmHg (35-46); PO2 ABG 128 mmHg (80-95); pH ABG 7.23 (7.35-7.45)
[2023-01-05 15:36] LABS: Allen Test POS (Pos)
[2023-01-05 15:44] LABS: Hematocrit (blood only) 25.1 % (37.0-47.0); Hemoglobin 8.1 g/dl (12.0-16.0)
[2023-01-05 16:22] LABS: BUN Creatinine Ratio 33.7 (10-20); Calcium 7.4 mg/dl (8.5-10.1); Creatinine Clr Calc Pharmacy 10.4 ml/min; Est GFR (African American) 11.4 ml/min; Est GFR (Non-African American) 9.8 ml/min
[2023-01-05] MEDS ORDERED: STAT IV STA ×2 (16:43→18:32)
[2023-01-05] MEDS ORDERED: CALCIUM GLUCONATE 10% 1,000 MG in DEXTROSE 5% 50 ML IV ONE (17:00)
[2023-01-05] MEDS ORDERED: LACTATED RINGER'S 250 ML IV ONE (18:02)
[2023-01-05] MEDS: AMIODARONE / D5W 360 MG/200 ML BAG IV SCH (18:42)
[2023-01-05] MEDS ORDERED: SODIUM BICARBONATE 8.4% 150 MEQ in DEXTROSE 5% 1,000 ML IV SCH (18:45)
[2023-01-05] MEDS: SODIUM CHLOR 7% 4 ML NEB NEB SCH (19:27)
--- NOTE | 2023-01-05 21:04 | Communication Note ---
Date of Service: January 05, 2023 Notified by resident and nursing staff of poor IV access. Patient with a ultrasound-guided IV and peripheral IV, peripheral IV with tenuous access. Patient has had multiple peripheral IV attempts, and 2 peripheral IV attempts today. Discussed with IV team, patient has poor vascular access and was assessed for peripheral IVs as noted, midline and PICC not able to be placed due to extremity swelling and poor access on their evaluation. Given that patient has multiple medications, bicarb, and amiodarone infusing is recommended to have at least 2 sites of stable access. This was discussed with patient who does not have capacity due to confusion, she is not able to elicit the risk/benefits of procedures as they apply to her has not oriented at time of provider assessment. Patient's Sister Ania was called and wrist/benefits of central line placement were discussed. Consent completed, and risks including infection/bleeding/pneumothorax/thrombosis/local tissue damage/nerve damage/bleeding were discussed, consent provided by phone and form witnessed by nursing staff. Discussed with overnight intensive care provider, patient will be assessed for access and central line placement
[2023-01-05 23:05] LABS: Allen Test POS (Pos); Base Excess ABG -6.7 mEq/L (-9-1.8); HCO3 ABG 21 mmol/L (19-24); Oxygen Saturation ABG 99.4 % (90-95); PCO2 ABG 47 mmHg (35-46); PO2 ABG 144 mmHg (80-95); pH ABG 7.25 (7.35-7.45)
[2023-01-06] MEDS: INSULIN ASPART PER UNIT SC SCH ×3 (00:43→09:04)
[2023-01-06] MEDS: PANTOprazole 40 MG in DEXTROSE 5% 100 ML IV SCH ×3 (04:16→15:29)
[2023-01-06] MEDS: AMIODARONE / D5W 360 MG/200 ML BAG IV SCH (05:24)
[2023-01-06 07:19] LABS: Albumin Globulin Ratio 0.9 (0.9-2); Albumin Level 2.9 gm/dl (3.4-5.0); Bilirubin,Total 0.4 mg/dl (0.2-1.0); Calcium 7.5 mg/dl (8.5-10.1); Creatinine Clr Calc Pharmacy 10.9 ml/min; Est GFR (African American) 12.1 ml/min; Est GFR (Non-African American) 10.4 ml/min; Globulin 3.3 gm/dl (2.5-4.0); Hematocrit (blood only) 24.3 % (37.0-47.0); Hemoglobin 7.8 g/dl (12.0-16.0); Magnesium 2.6 mg/dl (1.7-2.4); Mean Corpuscular Hemoglobin 27.8 pg (25.0-34.0); Mean Corpuscular Hgb Conc 32.1 g/dL (32.0-36.0); Mean Corpuscular Volume 86.5 fL (80.0-100.0); Mean Platelet Volume 9.7 fL (9.4-12.4); Nucleated RBC # (auto) 0.31 K/uL (0-0.12); Nucleated RBC % (auto) 2.4 %; Phosphorus 5.8 mg/dl (2.5-4.9); Platelet Count 360 K/uL (130-400); RDW Coefficient of Variation 16.5 % (11.5-14.5); RDW Standard Deviation 51.9 fL (36.4-46.3); Red Blood Count 2.81 M/uL (4.20-5.40); Total Protein 6.2 gm/dl (6.0-8.3); White Blood Count 13.02 K/ul (4.8-10.8)
[2023-01-06] MEDS ORDERED: LACTATED RINGER'S 250 ML IV ONE (07:25)
[2023-01-06 07:34] LABS: INR 1.2 (0.9-1.1); Partial Thromboplastin Ratio 1.2; Partial Thromboplastin Time 33.9 Seconds (21.0-31.0); Prothrombin Time 12.9 Seconds (9.0-12.0)
[2023-01-06 07:38] LABS: Basophils # (auto) 0.01 K/uL (0-0.2); Basophils % (auto) 0.1 %; Echinocytes 2+; Eosinophils # (auto) 0.01 K/uL (0-0.50); Eosinophils % (auto) 0.1 %; Immature Granulocytes # (auto) 0.27 K/uL (0.01-0.20); Immature Granulocytes % (auto) 2.1 %; Lymphocytes # (auto) 0.64 K/uL (1.2-3.4); Lymphocytes % (auto) 4.9 %; Monocytes # (auto) 0.84 K/uL (0.11-0.59); Monocytes % (auto) 6.5 %; Neutrophils # (auto) 11.25 K/uL (1.40-6.50); Neutrophils % (auto) 86.3 %; Polychromasia 1+
--- NOTE | 2023-01-06 07:59 | Hospitalist Progress Note ---
Date of Service January 06, 2023 Assessment & Plan (1) Acute and chronic respiratory failure with hypoxia: Plan: Patient is on 2 L nasal cannula at baseline, with a history of COPD Presented with worsening shortness of breath over several days per outside facility With hypoxia requiring ultimately BiPAP, with a pH of 7.2 and hypercarbia PCO2 61; with improvement in hypercarbia however with continued need for HFNC versus BiPAP to maintain oxygenation CT noncon of the chest shows atelectasis with near collapse of the left lower lobe vs. pneumonia, no other acute findings (not a contrast study due to ARF) Suspect respiratory failure is multifactorial with significant atelectasis with near collapse of the left lower lobe vs. pneumonia, significant anemia, hypercapnia MRSA nares positive, was previously on linezolid/cefepime/azithromycin for broad spectrum antibiotic coverage With evidence of third spacing and fluid overload 01/06, hypotension therefore inability to give diuretics. Discussion was had with the patient's 3 sisters and brother today regarding concerns for multisystem organ failure and lack of improvement in oxygenation with improvement in anemia and hypercapnia. Discussed goals of care, and patient's family elected to pursue comfort measures at this time. Please see the below for further description of clinical course, medications were added for pain and nausea for the patient. She has an unknown allergy listed to lorazepam, until able to contact family will defer benzodiazepine use at this time. Dilaudid for pain given acute renal failure. (2) Hypercapnic respiratory failure: Plan: High flow nasal cannula at this time, no escalation of care (3) Acute on chronic renal failure: Plan: 12/16/2022 creatinine of 1.8, on admission with a creatinine of 4.85 with associated hyperkalemia -> down to 4.1 with intermittent small NSS boluses, will switch to LR given acidosis/ARF CT Non-con of the abdomen shows a right renal calculus with mild hydroureter Nephrology consulted and appreciate recommendations: Suspect multifactorial with bladder outlet obstruction which is since resolved, superimposed ATN, sepsis and hemodynamic instability Patient's sisters provided advanced directive information, stating patient would not desire dialysis should that be necessary, 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 today see ab williamson (4) Hyperkalemia: Plan: Potassium of 6.2 on admission, down to 5.0 with placement of Gifford, IVF, calcium gluconate, insulin/D50 Nephrology consulted on admission, patient is SENIOR MATERIALS ANALYST at this time (5) Metabolic acidosis: Plan: 2/2 ARF, uremia, GI bleed, GI and Nephrology consulted as described (6) Acute GI bleeding: Plan: Suspected, no report of john bleeding per outside facility, but does have positive Hemoccult here per ER provider Patient has a history of anemia, unknown hemoglobin baseline but recent studies have been around 9.0 Hgb 6.5 on admit with BUN 130s, Hgb stable s/p 2u PRBCs at 8.1 GI consulted and appreciate recommendations, no endoscopy/colonoscopy given critically ill (7) Sepsis: Plan: Multifactorial, do suspect UTI with infected stone vs. pneumonia, WBC count elevated at 19 on arrival with hypothermia to 35.9 C; hypothermia and WBC count improving with IV Abx and brief need for Syl Hugger Blood and urine cultures collected, previously on linezolid/cefepime/azithromycin with highest suspicion for urinary tract infection, patient is SENIOR MATERIALS ANALYST (8) Atrial fibrillation with RVR: Plan: History of, on Xarelto in the outpatient setting Amiodarone gtt initiated 01/05 for HR 140s AFib, discontinued today Cardiology consulted this admission, no further interventions to add (9) Shock liver: Plan: On admission with ALT predominant transaminitis, elevated alk phos to 200s, no complaints of abdominal pain prior to admission CT abdomen pelvis Noncon without evidence of liver pathology Suspect this is shock liver in the setting of sepsis and hypoperfusion from anemia (10) Symptomatic anemia: Plan: Hemoglobin 6.5 on admission, 2 units of packed red blood cells as described above (11) Combined systolic and diastolic congestive heart failure: Plan: History of, do not have any previous records to indicate level of ventricular function prior to admission Echocardiogram 01/04 with normal LVEF, small pericardial effusion without evidence of tamponade, interpreted by Dr. Ruby Cardiology is consulted this admission for concern about possible GA given abnormal EKG on admission (borderline ST elevations in leads I, II, aVF), troponins were stable and very minimally elevated (12) Nephrolithiasis: Plan: Urology consulted for obstructive renal stone on the right side (13) Complicated UTI (urinary tract infection): Plan: See above (14) Atelectasis: Plan: Patient is generally immobile at baseline, only helps with transfer from bed to wheelchair CT this admission showing atelectasis with near collapse of the left lower lobe (15) COPD (chronic obstructive pulmonary disease): Plan: History of, on 2 L nasal cannula Patient does not have any wheezing, less suspicious of COPD exacerbation at this point and lieu of anemia/sepsis/atelectasis on imaging Admission and Anticipated Discharge Date Admission Date: January 04, 2023 Subjective Overnight without change in respiratory status, Tasneem awakens to touch but after simple questions falls back asleep. Denies pain in her chest or abdomen. Denies shortness of breath on high flow nasal cannula. Review of Systems Review of Systems: All systems reviewed & are unremarkable except as noted in Subjective Physical Exam Constitutional: + obese and + frail appearing Critically ill-appearing. Neck: Thick neck, no notable JVD Respiratory: + tachypneic Auscultation: lungs clear to auscultation bilater ally, + crackles and + rhonchi Cardiovascular: Rate/Rhythm: + tachycardic and + irregularly irregular Heart Sounds: + murmur Extremities: no edema Gastrointestinal (Abdomen): Inspection/Auscultation: + abdomen distended and + hypoactive bowel sounds Musculoskeletal: Extremities: no cyanosis and no clubbing Skin: + turgor decreased and + ecchymosis; no jaundice Neurologic: Somnolent. Minimally responsive. Psychiatric: Orientation: + not alert and + not oriented x 3 Results & Data Results & Data ([facility]) Vital Signs (Past 12 Hours) Vital Signs Temp Pulse Pulse Resp BP Pulse Ox O2 Del Method 01/06/23 07:41 36.4 C L 119 H 24 96/69 L 93 BiPAP 01/06/23 04:57 96 H 25 H 96 01/06/23 02:30 36.4 C L 105 H 20 95/55 L 99 BiPAP 01/06/23 01:15 109 H 01/06/23 00:02 109 H 22 96 01/05/23 22:44 BiPAP 01/05/23 22:08 36.3 C L 112 H 20 91/59 L 99 BiPAP FiO2 01/06/23 07:41 01/06/23 04:57 45 01/06/23 02:30 01/06/23 01:15 01/06/23 00:02 45 01/05/23 22:44 01/05/23 22:08 PG Care Time/CCT Total # of Minutes Spent Total Time Spent with Patient: Total time spent is greater than 50% in coordination of care (as documented) at patient's floor/unit and/or counseling patient: Coding Level of Care Code 38904 SUB INP/OBS CARE 3/50MIN Diagnoses Acute and chronic respiratory failure with hypoxia J96.21 Hypercapnic respiratory failure J96.92 Acute on chronic renal failure N17.9; N18.9 Hyperkalemia E87.5 Metabolic acidosis E87.20 Acute GI bleeding K92.2 Sepsis A41.9 Atrial fibrillation with RVR I48.91 Shock liver K72.00 Symptomatic anemia D64.9 Combined systolic and diastolic congestive heart failure I50.40 Nephrolithiasis N20.0 Complicated UTI (urinary tract infection) N39.0 Atelectasis J98.11 COPD (chronic obstructive pulmonary disease) J44.9
[2023-01-06] MEDS: SODIUM CHLOR 7% 4 ML NEB NEB SCH (08:07)
[2023-01-06 08:16] LABS: iSTAT Allen Test Pass; iSTAT Art Bld Gas pCO2 Correct 40 mmHg (35-46); iSTAT Arterial Blood Gas HCO3 21 meg/L (19-24); iSTAT Arterial Blood Gas pCO2 41 mmHg (35-46); iSTAT Arterial Blood Gas pH 7.32 (7.35-7.45); iSTAT Arterial Blood Gas pO2 106 mmHg (80-95); iSTAT Arterial Blood Gas pO2 C 103; iSTAT Carbon Dioxide 22 mmol/L (24-31); iSTAT FiO2 45 %; iSTAT Hematocrit 25 % (37-47); iSTAT Hemoglobin 8.5 g/dl (12.0-16.0); iSTAT Site L Radial; iSTAT Sodium 131 mmol/L (135-144)
[2023-01-06] MEDS: CEFEPIME 500 MG in SYRINGE 0 ML IV SCH (08:33)
[2023-01-06] MEDS: AZITHROMYCIN 500 MG in DEXTROSE 5% 250 ML IV SCH (08:49)
[2023-01-06] MEDS ORDERED: LANTUS PER UNIT CHARGE SQ SCH (09:00)
--- NOTE | 2023-01-06 09:20 | Urology Progress Note ---
Date of Service January 06, 2023 Assessment & Plan (1) Acute renal failure (ARF): (2) Nephrolithiasis: (3) Complicated UTI (urinary tract infection): Plan Complex patient with numerous chronic and acute issues Afebrile, but remains tachypneic and tachycardic She is dependent in Bipap/oxymask Labs reviewed - WBC and Creatinine are trending down Urine culture prelim showing E. coli and probable Enterococcus, BCx no growth x 48 hours Currently on Linezolid, Azithromycin, and Cefepime Gifford patent and draining Although she has an obstructing kidney stone, she is medically unstable for surgical intervention We will continue to observe for now and manage conservatively If she becomes febrile or clinically decompensates, then emergent stent placement may be required Continue supportive care, antibiotics, and medical management per primary team will follow Admission and Anticipated Discharge Date Admission Date: January 04, 2023 Subjective Patient seen and examined at bedside this morning. She is sitting up in bed, resting. She is not interactive but answers some yes or no questions. She denies flank or abdominal pain. Denies fever or chills. Afebrile, remains tachycardic and tachypneic, SBPs 90s. On oxymask this am. Review of Systems Constitutional: as per Subjective / HPI Gastrointestinal: as per Subjective / HPI Genitourinary: as per Subjective / HPI Physical Exam Constitutional: + ill appearing and + obese Respiratory: + tachypneic oxymask in place Cardiovascular: Rate/Rhythm: + tachycardic Extremities: + edema Gastrointestinal (Abdomen): Percussion/Palpation: abdomen soft; abdomen nontender Psychiatric: Orientation: + not alert not very interactive, but answers yes or no questions Genitourinary: Gifford patent and draining clear yellow urine Results & Data ([facility]) Vital Signs (Past 12 Hours) Vital Signs Temp Pulse Pulse Resp BP Pulse Ox O2 Del Method 01/06/23 08:10 22 94 Oxymask 01/06/23 07:41 36.4 C L 119 H 24 96/69 L 93 BiPAP 01/06/23 04:57 96 H 25 H 96 01/06/23 02:30 36.4 C L 105 H 20 95/55 L 99 BiPAP 01/06/23 01:15 109 H 01/06/23 00:02 109 H 22 96 01/05/23 22:44 BiPAP 01/05/23 22:08 36.3 C L 112 H 20 91/59 L 99 BiPAP O2 Flow Rate FiO2 01/06/23 08:10 6 01/06/23 07:41 01/06/23 04:57 45 01/06/23 02:30 01/06/23 01:15 01/06/23 00:02 45 01/05/23 22:44 01/05/23 22:08 PG Care Time/CCT Total # of Minutes Spent Total Time Spent with Patient: Total time spent is greater than 50% in coordination of care (as documented) at patient's floor/unit and/or counseling patient: Coding Level of Care Code 16613 SUB INP/OBS CARE 11/20MIN Diagnoses Acute renal failure (ARF) N17.9 Acute renal failure type: unspecified Nephrolithiasis N20.0 Complicated UTI (urinary tract infection) N39.0 (1) Acute renal failure (ARF) Acute renal failure type: unspecified Qualified Code(s): N17.9 - Acute kidney failure, unspecified
--- NOTE | 2023-01-06 09:26 | Nephrology Progress Note ---
Date of Service January 06, 2023 Assessment & Plan (1) Acute on chronic renal failure: Plan: Non-oliguric. ABDIAS attributed to decreased EAV in setting of sepsis/hemodynamic instability with superimposed ATN. Possible component of bladder outlet obstruction which appears to have resolved with exchange of Gifford catheter. A 4 mm stone is appreciated in the proximal right ureter. No urologic intervention planned at this time. Patient is medically unstable for OR. No concerning features of uncontrolled infection and kidney function demonstrating signs of improvement. Baseline creatinine 1.6-1.8 mg/dL. Dialysis not to be considered part of care plan based on advanced directive. Unfortunately, I am appreciating increasing third spacing of fluids and pulmonary edema. Tasneem is in a notably positive fluid balance. Additional IV bolus provided this AM. BP remains low on amiodarone with persistent AF/RVR. I would suggest striving for an even or slightly negative fluid balance today. Diuretics held this AM given recent fluid bolus. IF BP improves, consider dose of IV furosemide. Document strict I/O. Repeat metabolic profile this evening. (2) Combined systolic and diastolic congestive heart failure: Plan: Provided furosemide as needed today to encourage urine output. Goal is to maintain slightly negative fluid balance. (3) Complicated UTI (urinary tract infection): Plan: Culture +E colie and probable enterococcus. Remains on cefepime, linezlid, and azithromycin. (4) Chronic indwelling Gifford catheter: (5) Anemia: Plan: H/H relatively stable. No melena or hematochezia noted. PRBC transfusion support provided on admission. (6) PAF (paroxysmal atrial fibrillation): Plan: Remains on amiodarone. (7) COPD (chronic obstructive pulmonary disease): Plan: Pulmonology consultation appreciated. IV HCO3 provided overnight for persistent NAGMA. Admission and Anticipated Discharge Date Admission Date: January 04, 2023 Subjective No acute events overnight. Remains in atrial fibrillation, HR ~120. 250 ml of LR provided this AM. BP remains soft. Amiodarone infusing. Afebrile. Tasneem is resting comfortably in bed with Oxymask. Limited IV access options noted. IV HCO3 infusion provided overnight for persistent NAGMA. Tachypnea improved. Tasneem will open eyes to voice and nod her head to questions but she did not demonstrate any understanding. No meaningful interaction was appreciated this AM. After opening her eyes, she quickly falls back asleep. Remains non-oliguric. Gifford intact. Review of Systems Review of Systems: Unobtainable due to reduced consciousness Physical Exam Constitutional: + ill appearing, + obese and + frail appearing Eyes: + anicteric sclerae; pupils not irregular Neck: normal visual inspection and trachea midline Respiratory: + tachypneic Auscultation: + diminished lung sounds, + rales and + rhonchi Cardiovascular: Rate/Rhythm: + tachycardic and + irregularly irregular Heart Sounds: normal S1, normal S2 and + murmur Vessels: + JVD Extremities: + edema (increasing dependent edema UE and LE) Musculoskeletal: Extremities: no cyanosis and no clubbing Skin: + turgor decreased and + ecchymosis; no jaundice Neurologic: Speech / Cognition: + abnormal cognition Motor/Sensory: no fasciculations and no asterixis Psychiatric: Orientation: + not alert Genitourinary: Gifford draining clear yellow urine Results & Data ([facility]) Vital Signs (Past 12 Hours) Vital Signs Temp Pulse Pulse Resp BP Pulse Ox O2 Del Method 01/06/23 08:10 22 94 Oxymask 01/06/23 07:41 36.4 C L 119 H 24 96/69 L 93 BiPAP 01/06/23 04:57 96 H 25 H 96 01/06/23 02:30 36.4 C L 105 H 20 95/55 L 99 BiPAP 01/06/23 01:15 109 H 01/06/23 00:02 109 H 22 96 01/05/23 22:44 BiPAP 01/05/23 22:08 36.3 C L 112 H 20 91/59 L 99 BiPAP O2 Flow Rate FiO2 01/06/23 08:10 6 01/06/23 07:41 01/06/23 04:57 45 01/06/23 02:30 01/06/23 01:15 01/06/23 00:02 45 01/05/23 22:44 01/05/23 22:08 Laboratory Results Laboratory Results - last 24 hr 01/05/23 01/05/23 01/05/23 11:24 15:25 15:25 WBC RBC Hgb 8.1 L POC Hgb Hct 25.1 L POC Hct MCV MCH MCHC RDW Std Deviation RDW Coeff of Denny Plt Count MPV Immature Gran % (Auto) Neut % (Auto) Lymph % (Auto) Moody % (Auto) Eos % (Auto) Baso % (Auto) Neut # (Auto) Lymph # (Auto) Moody # (Auto) Eos # (Auto) Baso # (Auto) Immature Gran # (Auto) Absolute Nucleated RBC Nucleated RBC % (auto) Polychromasia Echinocytes PT INR APTT PTT Ratio Sample Site POC pH POC pCO2 POC pO2 POC HCO3 POC Total CO2 POC Base Excess ABG pH ABG pH (Temp Correct) ABG pCO2 ABG pCO2 (Temp Corrct ABG pO2 POC ABG pO2 at Pt Temp ABG HCO3 POC ABG O2 Sat ABG O2 Saturation ABG Base Excess Fredrick Test Oxygen Given O2 Delivery Device POC O2 Rate POC FiO2 IPAP POC Sodium Sodium 131 L POC Potassium Potassium 5.0 Chloride 98 Carbon Dioxide 19 L Anion Gap 14 H BUN 137 H Creatinine 4.06 H Est Cr Clr Drug Dosing 10.4 Est GFR ( Amer) 11.4 Est GFR (Non-Af Amer) 9.8 BUN/Creatinine Ratio 33.7 H Glucose 251 H POC Glucose 200 H Calcium 7.4 L Phosphorus Magnesium Total Bilirubin AST ALT Alkaline Phosphatase Troponin I High Sens 16.0 H Total Protein Albumin Globulin Albumin/Globulin Ratio 01/05/23 01/05/23 01/05/23 15:25 17:03 20:02 WBC RBC Hgb POC Hgb Hct POC Hct MCV MCH MCHC RDW Std Deviation RDW Coeff of Denny Plt Count MPV Immature Gran % (Auto) Neut % (Auto) Lymph % (Auto) Moody % (Auto) Eos % (Auto) Baso % (Auto) Neut # (Auto) Lymph # (Auto) Moody # (Auto) Eos # (Auto) Baso # (Auto) Immature Gran # (Auto) Absolute Nucleated RBC Nucleated RBC % (auto) Polychromasia Echinocytes PT INR APTT PTT Ratio Sample Site POC pH POC pCO2 POC pO2 POC HCO3 POC Total CO2 POC Base Excess ABG pH 7.23 L ABG pH (Temp Correct) ABG pCO2 46 ABG pCO2 (Temp Corrct ABG pO2 128 H POC ABG pO2 at Pt Temp ABG HCO3 19 POC ABG O2 Sat ABG O2 Saturation 98.6 H ABG Base Excess -8.2 Fredrick Test POS Oxygen Given FiO2 80% O2 Delivery Device POC O2 Rate POC FiO2 IPAP POC Sodium Sodium POC Potassium Potassium Chloride Carbon Dioxide Anion Gap BUN Creatinine Est Cr Clr Drug Dosing Est GFR ( Amer) Est GFR (Non-Af Amer) BUN/Creatinine Ratio Glucose POC Glucose 244 H 212 H Calcium Phosphorus Magnesium Total Bilirubin AST ALT Alkaline Phosphatase Troponin I High Sens Total Protein Albumin Globulin Albumin/Globulin Ratio 01/05/23 01/06/23 01/06/23 22:55 00:38 04:20 WBC RBC Hgb POC Hgb Hct POC Hct MCV MCH MCHC RDW Std Deviation RDW Coeff of Denny Plt Count MPV Immature Gran % (Auto) Neut % (Auto) Lymph % (Auto) Moody % (Auto) Eos % (Auto) Baso % (Auto) Neut # (Auto) Lymph # (Auto) Moody # (Auto) Eos # (Auto) Baso # (Auto) Immature Gran # (Auto) Absolute Nucleated RBC Nucleated RBC % (auto) Polychromasia Echinocytes PT INR APTT PTT Ratio Sample Site POC pH POC pCO2 POC pO2 POC HCO3 POC Total CO2 POC Base Excess ABG pH 7.25 L ABG pH (Temp Correct) ABG pCO2 47 H ABG pCO2 (Temp Corrct ABG pO2 144 H POC ABG pO2 at Pt Temp ABG HCO3 21 POC ABG O2 Sat ABG O2 Saturation 99.4 H ABG Base Excess -6.7 Fredrick Test POS Oxygen Given 60% FIO2 O2 Delivery Device POC O2 Rate POC FiO2 IPAP POC Sodium Sodium POC Potassium Potassium Chloride Carbon Dioxide Anion Gap BUN Creatinine Est Cr Clr Drug Dosing Est GFR ( Amer) Est GFR (Non-Af Amer) BUN/Creatinine Ratio Glucose POC Glucose 218 H 174 H Calcium Phosphorus Magnesium Total Bilirubin AST ALT Alkaline Phosphatase Troponin I High Sens Total Protein Albumin Globulin Albumin/Globulin Ratio 01/06/23 01/06/23 01/06/23 06:36 06:36 06:36 WBC 13.02 H RBC 2.81 L Hgb 7.8 L POC Hgb Hct 24.3 L POC Hct MCV 86.5 MCH 27.8 MCHC 32.1 RDW Std Deviation 51.9 H RDW Coeff of Denny 16.5 H Plt Count 360 MPV 9.7 Immature Gran % (Auto) 2.1 Neut % (Auto) 86.3 Lymph % (Auto) 4.9 Moody % (Auto) 6.5 Eos % (Auto) 0.1 Baso % (Auto) 0.1 Neut # (Auto) 11.25 H Lymph # (Auto) 0.64 L Moody # (Auto) 0.84 H Eos # (Auto) 0.01 Baso # (Auto) 0.01 Immature Gran # (Auto) 0.27 H Absolute Nucleated RBC 0.31 H Nucleated RBC % (auto) 2.4 Polychromasia 1+ Echinocytes 2+ PT 12.9 H INR 1.2 H APTT 33.9 H PTT Ratio 1.2 Sample Site POC pH POC pCO2 POC pO2 POC HCO3 POC Total CO2 POC Base Excess ABG pH ABG pH (Temp Correct) ABG pCO2 ABG pCO2 (Temp Corrct ABG pO2 POC ABG pO2 at Pt Temp ABG HCO3 POC ABG O2 Sat ABG O2 Saturation ABG Base Excess Fredrick Test Oxygen Given O2 Delivery Device POC O2 Rate POC FiO2 IPAP POC Sodium Sodium 133 L POC Potassium Potassium 4.0 Chloride 97 L Carbon Dioxide 22 Anion Gap 14 H BUN 124 H Creatinine 3.87 H Est Cr Clr Drug Dosing 10.9 Est GFR ( Amer) 12.1 Est GFR (Non-Af Amer) 10.4 BUN/Creatinine Ratio 32.0 H Glucose 182 H POC Glucose Calcium 7.5 L Phosphorus 5.8 H Magnesium 2.6 H Total Bilirubin 0.4 AST 56 H ALT 433 H Alkaline Phosphatase 130 H Troponin I High Sens Total Protein 6.2 Albumin 2.9 L Globulin 3.3 Albumin/Globulin Ratio 0.9 01/06/23 01/06/23 07:56 08:18 WBC RBC Hgb POC Hgb 8.5 L Hct POC Hct 25 L MCV MCH MCHC RDW Std Deviation RDW Coeff of Denny Plt Count MPV Immature Gran % (Auto) Neut % (Auto) Lymph % (Auto) Moody % (Auto) Eos % (Auto) Baso % (Auto) Neut # (Auto) Lymph # (Auto) Moody # (Auto) Eos # (Auto) Baso # (Auto) Immature Gran # (Auto) Absolute Nucleated RBC Nucleated RBC % (auto) Polychromasia Echinocytes PT INR APTT PTT Ratio Sample Site L Radial POC pH 7.32 L POC pCO2 41 POC pO2 106 H POC HCO3 21 POC Total CO2 22 L POC Base Excess -5.0 ABG pH ABG pH (Temp Correct) 7.330 L ABG pCO2 ABG pCO2 (Temp Corrct 40 ABG pO2 POC ABG pO2 at Pt Temp 103 ABG HCO3 POC ABG O2 Sat 98.0 H ABG O2 Saturation ABG Base Excess Fredrick Test Pass Oxygen Given O2 Delivery Device BIPAP POC O2 Rate 22 POC FiO2 45 IPAP 18 POC Sodium 131 L Sodium POC Potassium 4.0 Potassium Chloride Carbon Dioxide Anion Gap BUN Creatinine Est Cr Clr Drug Dosing Est GFR ( Amer) Est GFR (Non-Af Amer) BUN/Creatinine Ratio Glucose POC Glucose 137 H Calcium Phosphorus Magnesium Total Bilirubin AST ALT Alkaline Phosphatase Troponin I High Sens Total Protein Albumin Globulin Albumin/Globulin Ratio PG Care Time/CCT Total # of Minutes Spent Total Time Spent with Patient: Total time spent is greater than 50% in coordination of care (as documented) at patient's floor/unit and/or counseling patient: Coding Level of Care Code 97075 SUB INP/OBS CARE 3/50MIN Diagnoses Acute on chronic renal failure N17.9; N18.9 Combined systolic and diastolic congestive heart failure I50.40 Complicated UTI (urinary tract infection) N39.0 Chronic indwelling Gifford catheter Z97.8 Anemia D64.9 PAF (paroxysmal atrial fibrillation) I48.0 COPD (chronic obstructive pulmonary disease) J44.9
--- NOTE | 2023-01-06 10:20 | Pulmonology Progress Note ---
Date of Service January 06, 2023 Assessment & Plan (1) Acute respiratory failure: (2) Atelectasis of left lung: (3) Acute renal failure (ARF): Acute renal failure type: unspecified Qualified Code(s): N17.9 - Acute kidney failure, unspecified (4) PAF (paroxysmal atrial fibrillation): Plan IMPRESSION: 77-year-old female presenting with acute hypoxic respiratory failure in the setting of severe sepsis with multisystem failure requiring noninvasive ventilatory techniques and high levels of supplemental O2 to maintain normal saturations. CT findings consistent with atelectasis and possible pneumonia of the LEFT lower lobe. RECOMMENDATIONS: 1. Acute hypoxic respiratory failure - * Multifactorial in the metabolically encephalopathic morbidly obese patient with likely underlying obesity hypoventilation syndrome/PEYTON now presenting with infiltrative changes versus atelectasis of the LEFT lower lobe. * Initially, patient had been doing well on BiPAP, however settings are advanced at 18/6 and 45%. * On evaluation this morning, patient's blood gas had improved and she was oxygenating well. She was placed on a 6 L oxy mask. * Unfortunately, the patient remains metabolically encephalopathic despite correction of her CO2. This favors her underlying medical conditions and metabolic encephalopathy is the primary driving force of her somnolent state. * Regardless, would continue with BiPAP as needed and while sleeping. * Supplemental oxygen as needed to maintain saturations greater than 92%. 2. Atelectasis of LEFT Lower Lobe - * Again, multifactorial and complicated with patient's body habitus and mental status. * Patient is oxygenating well while utilizing BiPAP. Unfortunately, this is certainly not a long-term option for this patient and she has been unable to participate with other pulmonary toilet exercises. * Patient remains on broad-spectrum antibiotics in the setting of UTI/sepsis from retained ureteral stone. 3. Renal Failure, GI Bleeding, Sepsis, A. Fib, Shock Liver - * Unfortunately, the combination of the patient's multisystem failure certainly does not pain a great picture for outcome moving forward. * Patient is currently being maximized from a pulmonary perspective while working within the parameters the patient's wishes of DNR/DNI status - which is appropriate for this patient. * Would recommend engagement of palliative care services moving forward Thank you for allowing us to participate in the care of this patient. We will continue to follow along with the patient for now Admission and Anticipated Discharge Date Admission Date: January 04, 2023 Supervising Physician Co-Signing Physician Notes Patient seen and examined. EMR reviewed. Discussed with patient at bedside as well as with SHUN. Agree with assessment plan as noted. Seems very reasonable to define goals of care in this chronically ill and debilitated patient. Would not recommend central line placement. Recommend consulting with interventional radiology to see whether or not they can provide access for the patient in the long-term. Would continue noninvasive positive pressure ventilation on an as-needed basis. Her CO2 this morning is better and her encephalopathy appears improved. If the patient is unable to cough on her own its unlikely that a CoughAssist device or vest therapy would be beneficial in improving her pulmonary toilet. She is a poor candidate for intubation or aggressive airway interventions. Her acidosis appears to be both metabolic and respiratory in nature and she likely has a component of obesity hypoventilation syndrome so nocturnal BiPAP may be beneficial. Given the multiple other medical issues complicating care of this patient, a care conference is planned with proxy decision makers later for today which certainly appears reasonable. We will continue to follow with you. Feel free to contact us with questions in the interim Subjective Patient was seen and evaluated at bedside. No adverse events noted overnight. Patient remains somnolent. She awakens to verbal stimuli. She knows that she is in the hospital. Otherwise, she provides no pertinent information. Review of Systems Review of Systems: Limited secondary to patient's mental status. Physical Exam Physical Exam: VITAL SIGNS - Vital signs and nursing notes were reviewed. GENERAL - 77-year-old male appearing her stated age who is somnolent on the BiPAP. HEAD - NC/AT. EYES - PERRL with EOMI bilaterally. Sclera anicteric. Palpebral conjunctiva pink and moist with no injection noted. EARS - No deformities of external structures noted on gross examination bilaterally. No pain elicited with palpation of the tragus bilaterally. External auditory canals without discharge or otorrhea. Tympanic membranes pearly perry without retraction or bulging. No fluid or purulent material visualized behind the TM. Handle of malleus, umbo, cone of light, pars tensa/flaccid all easily visualized. NOSE - Midline and without cyanosis. No epistaxis or purulent drainage noted. Septum midline without deviation or septal hematoma noted. MOUTH/OROPHARYNX - Without perioral cyanosis. Buccal mucosa pink and moist and without leukoplakia. Tongue midline with equal elevation of palate bilaterally. No tonsillar hypertrophy, erythema, or exudates noted. [] dentition noted. NECK - Neck with FROM. Supple to palpation [] without JVD, carotid bruit, thyromegally, or thyroid nodules. LUNGS - Chest wall symmetric without accessory muscle use, intercostals retractions, or central cyanosis. Normal vesicular breath sounds CTA B/L. No wheezes, rales, or rhonchi appreciated. CARDIAC - [] RRR with S1/S2. No murmur, rubs, or gallops appreciated. [] reproducible tenderness to palpation appreciated over the anterior chest wall. ABDOMEN - Abdominal contour [] without pulsations or visible masses. BS nor moactive all four quadrants. No tenderness, palpable masses, hepatosplenomegaly, or ascites noted. EXTREMITIES - [] No clubbing or peripheral cyanosis. [] No pretibial edema present. +3/5 radial and dorsalis pedis pulses palpated throughout. +[]5/5 strength noted in UE/LE bilaterally. NEUROLOGIC - Cranial nerves II through XII grossly intact. Sensory intact to light touch throughout. PSYCH - A&Ox3 and cooperates fully with examiner. Pt is very pleasant and interacts well with examiner. Results & Data Results & Data ([facility]) Vital Signs (Past 12 Hours) Vital Signs Temp Pulse Pulse Resp BP Pulse Ox O2 Del Method 01/06/23 07:15 BiPAP 01/06/23 07:15 110 H 01/06/23 08:10 22 94 Oxymask 01/06/23 07:41 36.4 C L 119 H 24 96/69 L 93 BiPAP 01/06/23 04:57 96 H 25 H 96 01/06/23 02:30 36.4 C L 105 H 20 95/55 L 99 BiPAP 01/06/23 01:15 109 H 01/06/23 00:02 109 H 22 96 01/05/23 22:44 BiPAP O2 Flow Rate FiO2 01/06/23 07:15 01/06/23 07:15 01/06/23 08:10 6 01/06/23 07:41 01/06/23 04:57 45 01/06/23 02:30 01/06/23 01:15 01/06/23 00:02 45 01/05/23 22:44 PG Care Time/CCT Total # of Minutes Spent Total Time Spent with Patient: Total time spent is greater than 50% in coordination of care (as documented) at patient's floor/unit and/or counseling patient: Coding Level of Care Code 87446 SUB INP/OBS CARE 3/50MIN Diagnoses Acute respiratory failure J96.00 Atelectasis of left lung J98.11 Acute renal failure (ARF) N17.9 Acute renal failure type: unspecified PAF (paroxysmal atrial fibrillation) I48.0
--- NOTE | 2023-01-06 10:34 | Pharmacy Report ---
Pharmacy Glycemic Short Note 2 - Date of Service January 06, 2023 - Glycemic Short BSG Results (Last 24 hours): 01/05/23 01/05/23 01/05/23 11:24 15:25 17:03 Glucose 251 H POC Glucose 200 H 244 H 01/05/23 01/06/23 01/06/23 20:02 00:38 04:20 Glucose POC Glucose 212 H 218 H 174 H 01/06/23 01/06/23 06:36 08:18 Glucose 182 H POC Glucose 137 H OUTPATIENT ANTIDIABETIC REGIMEN: * n/a ASSESSMENT: 01/06: * BSGs [phone]/dL the last 24h. Patient received 7 units of basal and 8 units of bolus insulin the last 24h. * Currently NPO and receiving cefepime, linezolid, and azithromycin IV. Also on amiodarone infusion. * Will hold basal insulin given not on antihyperglycemics at home and NPO. Novolog q6 correctional insulin while NPO. 01/04: * Ms Pena is a 77 y/o F who presents with UTI/active infection and sepsis. BSG on PRP on admission was 151 then 326 mg (about 30 mins after 10 units of IV insulin + amp of D50 given for hyperkalemia). * POC at noon was 209 mg/dL. * Patient currently NPO and on Protonix infusion. * Will give Lantus 10 units x 1 (0.1 units/kg) and Novolog q4 with weight-based stress of 2 CF. This will ensure BSGs remain < 180 mg/dL in case of a surgical procedure. * Additional Lantus doses to be determined based upon patient's PO status going forward and response to this small dose. PLAN FOR INPATIENT GLYCEMIC CONTROL: * Basal insulin * hold * Bolus insulin * NovoLog per scale ACHS or Q6hrs while NPO * Goal Range: Low 110 mg/dL - High 140 mg/dL * Correction Factor: 30 mg/dL/unit * Nutritional / Prandial insulin per carb ratio of 1 unit per 10 grams CHO consumed
[2023-01-06] MEDS: LINEZOLID 600 MG/300 ML BAG IV SCH (11:04)
[2023-01-06] MEDS ORDERED: INSULIN ASPART PER UNIT SC SCH (12:00)
[2023-01-06] MEDS ORDERED: GLYCOPYRROLATE 0.2 MG/ML VIAL IV PRN (16:11)
[2023-01-06] MEDS ORDERED: ONDANSETRON 4 MG OD TAB SL PRN (16:11)
[2023-01-06] MEDS ORDERED: ONDANSETRON INJ 2 MG/ML 2 ML VIAL IV PRN (16:11)
[2023-01-06] MEDS ORDERED: LORazepam 2 MG/1 ML VIAL IV PRN ×2 (16:11)
--- NOTE | 2023-01-06 17:07 | Cardiology Progress Note ---
Date of Service January 06, 2023 Assessment & Plan (1) Atrial fibrillation with RVR: Plan: Patient continues with atrial fibrillation with slightly elevated rate. This is unlikely to be the cause of the hypotension. Looking at echocardiogram reveals severe atrial argument likely chronic secondary to significant valvular heart disease. Therefore, patient is unlikely to maintain sinus rhythm and unlikely to convert to sinus rhythm from A-fib using amiodarone alone. The amiodarone may also be contributing to the hypotension although sepsis is most likely reason. Taken as a whole, I would discontinue the amiodarone drip at this time. We can control the heart rate using digoxin which is unlikely to cause hypotension but of course this could be an issue with digoxin toxicity given poor renal function. Alternatively, we could try to control heart rate with beta-harriet alone once her blood pressure improves. I would allow mild tachycardia as this is physiologically appropriate given her complex acute issues. Ultimately, we could consider DC cardioversion but she has not been on anticoagulation so DIAZ would be preferable. She carries significant risk for cardioembolic stroke but also has significant anemia and likely GI bleed. (2) Acute renal failure (ARF): Plan: Continues with volume overload by physical exam. X-ray is less impressive with regard to extent of pulmonary edema. Not clear if the pleural effusion is large enough for thoracentesis. Seems that the patient's baseline renal disease stage IV. Nephrology is following. Evidently, patient is not interested in hemodialysis. Not sure if that includes short-term to assist with volume overload. (3) Anemia: Plan: Stable low blood counts. This also contributes to her tachycardia. Not currently on any anticoagulation although she had been prior to admission. Transfuse as needed per primary team. (4) Sepsis: Plan: Patient is on linezolid. She has decubitus ulcer on buttocks. Also on the right heel. E. coli and the faecalis in the urine. Treatment per primary team. (5) Acute on chronic combined systolic (congestive) and diastolic (congestive) heart failure: Plan: Patient has known reduced EF, significant valvular heart disease, and there is some volume overload at this time which is secondary to both her cardiac dysfunction and her acute on chronic renal insufficiency. Would continue to diu rese as tolerated from a blood pressure and kidney standpoint. Appears to be some hepatic congestion as well likely from right-sided heart failure secondary to pulmonary hypertension/COPD. Plan Patient has multisystem disease both acute and chronic which is very much complicating her medical management. Furthermore, she evidently does not want invasive procedures and does not want dialysis. She is DNR/DNI. We can continue to try to treat her infection and diurese her but her prognosis is poor. I have reviewed the pulmonary critical care medicine note which suggests palliative care consultation. This is certainly reasonable. Admission and Anticipated Discharge Date Admission Date: January 04, 2023 Subjective Patient overall doing poorly. Continues with respiratory distress. Not very responsive to verbal or tactile stimuli. She appears to be septic with acute on chronic renal insufficiency. She has some volume overload. She is again in atrial fibrillation with heart rate in the high 90s to low 100s. She has relative hypotension. Review of Systems Review of Systems: Unobtainable due to mental status. Physical Exam Constitutional: Critically ill-appearing. Eyes: Opens to painful stimulus. Anicteric. Neck: Thick. Do not appreciate any JVD. Respiratory: Poor air movement. Mildly tachypneic. Crackles and coarse breath sounds. Cardiovascular: Tachycardic with an irregular rhythm. Grade 2 out of 6 systolic murmur. No significant lower extremity edema. Neurologic: Somnolent. Minimally responsive. Results & Data ([facility]) Vital Signs (Past 12 Hours) Vital Signs Temp Pulse Pulse Resp BP Pulse Ox O2 Del Method 01/06/23 15:47 36.5 C 93 H 24 135/67 91 High Flow Nasal Cannula 01/06/23 15:10 101 H 22 94 High Flow Nasal Cannula 01/06/23 11:56 89/59 L 01/06/23 11:12 36.7 C 101 H 24 79/53 L 93 High Flow Nasal Cannula 01/06/23 07:15 BiPAP 01/06/23 07:15 110 H 01/06/23 08:10 22 94 Oxymask 01/06/23 07:41 36.4 C L 119 H 24 96/69 L 93 BiPAP O2 Flow Rate FiO2 01/06/23 15:47 30 60 01/06/23 15:10 30 60 01/06/23 11:56 01/06/23 11:12 30 70 01/06/23 07:15 01/06/23 07:15 01/06/23 08:10 6 01/06/23 07:41 PG Care Time/CCT Total # of Minutes Spent Total Time Spent with Patient: Total time spent is greater than 50% in coordination of care (as documented) at patient's floor/unit and/or counseling patient: Coding [place] [id number] SUB INP/OBS CARE 2/35MIN Patient Type Established Diagnoses Atrial fibrillation with RVR I48.91 Acute renal failure (ARF) N17.9 Acute renal failure type: unspecified Anemia D64.9 Anemia type: unspecified type Sepsis A41.9 Acute on chronic combined systolic (congestive) and diastolic (congestive) heart failure I50.43 (2) Acute renal failure (ARF) Acute renal failure type: unspecified Qualified Code(s): N17.9 - Acute kidney failure, unspecified (3) Anemia Anemia type: unspecified type Qualified Code(s): D64.9 - Anemia, unspecified
--- NOTE | 2023-01-06 21:04 | Palliative Care Consultation ---
Date of Consultation January 07, 2023 Assessment & Plan (1) Palliative care by specialist: Met with patient's family at bedside. Provided overview of Palliative Medicine, a subspecialty that provides specialized medical care for people living with a serious illness by offering a focus on quality of life. Palliative Medicine is often conflated with hospice: I advised patient/family that Palliative and hospice can be partners but we are not the same. It is important to understand the difference so that we may be informed, and not afraid. Palliative Medicine works to improve QOL through reduction of symptom burden/more control over their illness, for both the patient and family. Palliative medicine clinicians are board certified, specially-trained and another member of the patient's medical care team. We often provide an extra layer of support because our care is based on the needs of the patient, not the prognosis; as such, it's appropriate at any age/advancing stage of a serious illness and can be provided along with curative treatment. Palliative Medicine clinicians are also trained in advanced communication methodologies, to facilitate complex discussions about advanced illness planning, which are needed to help assure that the treatment choices match the patient's goals, aka delivering Goal Concordant care. Finally, we discussed that hospice is a visiting nurse service that focuses on care delivered at the very end of life for patients with terminal illness, with life expectancy less than 6 month. (2) Encounter for end of life care: [id number] discussion was held at the bedside with patient's sister and brother. Her sister shares that she is an RN at [facility] in the preadmission testing department. They shared some history of outpatient, noting that she used to be very involved in her pentecostal and at 1 point lets acquire until her medical issues became more complex and she was unable to be as ambulatory or as mobile as she would have liked. They do feel a visit from the small machine bindery operator would be welcome. They reaffirm a comfort focused plan of care. We discussed some of the findings today notably her respiratory distress and agitation. Sister notes that her respiratory symptoms have been waxing and waning but that she has in general become slightly more agitated and perhaps more anxious. They would like some improved control of the symptoms. We also discussed the changes that patients may move through in an end-of-life process and at the sister's request discussed the following: TEACHING THE FAMILY WHAT TO EXPECT WHEN THE PATIENT IS DYING (from Wade Ma MD, PhD) Introduction: Family members look to the medical team to help them know what to expect when a loved one is dying. No matter the underlying causes, there is a common final pathway that most patients travel. 1. Social Withdrawal is normal for the dying patient as the person becomes less concerned about his or her surroundings. Separation begins first from the world no more interest in newspaper or television, then from people no more neighbors visiting, and finally from the children, grandchildren and perhaps even those persons most loved. With this withdrawal comes less of a need to communicate with others, even with close family. 2. Food: The patient will have a decreased need for food and drink as the body is preparing to . This is one of the hardest things for some family to accept. There is a gradual decrease in interest in eating and appetiteeven for their favorite foods. Interest may come and go. The patient is not starving to deaththis reflects the underlying disease. Liquids are preferred to solidsfollow the patients lead and do not force feed. 3. Sleep: The patient will spend more and more time sleeping; it may be difficult for them to keep their eyes open. This is a result of a change in the bodys metabolism as a result of the disease. Tell family to spend more time with the patient during those times when he/she is most alert; this might be the middle of the night. 4. Disorientation: The patient may become confused about time, place and the identity of people around him/her. He/she may see people who are not there, such as family members who have already . Sometimes patients describe welcoming or beckoning. While the patient may not be distressed, it is frequently distressing to family or health home care specialist. Gently orient the patient if he or she asks. There is no need to correct the patient if he or she is not distressed. 5. Restlessness: The patient may become restless and pull at the bed linens. These symptoms are also a change in the bodys metabolism. Talk calmly and assuredly with the patient so as not to startle or frighten them. If the patient is a danger to himself or others, you may prescribe sedating neuroleptics (e.g.chlorpromazine), or neuroleptics (e.g. haloperidol) in combination with benzodiazepines (e.g. lorazepam), to help the patient rest. 6. Decreased Senses: Clarity of hearing and vision may decrease. Soft lights in the room may prevent visual misinterpretations. Never assume that the patient cannot hear you, as hearing is the last of the five senses to be lost. 7. Incontinence of urine and bowel movements is often not a problem until is very near. Invite family to participate in direct care; the nurse can help place absorbent pads under the patient for more comfort and cleanliness, or a urinary catheter may be used. The amount of urine will decrease and the urine become darker as becomes near. 8. Physical Changes as approaches: a. The blood pressure decreases; the pulse may increase or decrease. c. The body temperature can fluctuate; fever is common. d. There is increased perspiration often with clamminess. e. The skin color changes: flushed with fever, bluish with cold. A pale yel lowish pallor (not to be confused with jaundice) often accompanies approaching . f. Breathing changes also occur. Respirations may increase, decrease or become irregular; periods of no breathing (apnea) are common. g. Congestion will present as a rattling sound in the lungs and/or upper throat. This occurs because the patient is too weak to clear the throat or cough. The congestion can be affected by positioning, may be very loud, and sometimes just comes and goes. Anticholinergic medications (like scopolamine or glycopyrrolate) can help (see Fast Fact #109). Elevating the head of bed and swabbing the mouth with oral swabs give comfort and give the family something to do. h. The arms and legs may become cool to the touch. The hands and feet become purplish. The knees, ankles and elbows are blotchy. These symptoms are a result of decreased circulation. i. The patient will enter a coma before and not respond to verbal or tactile stimuli. HOW TO KNOW THAT HAS OCCURRED No breathing and heartbeat. Loss of control of bowel or bladder. No response to verbal commands or gentle shaking. Eyelids slightly open; eyes fixed on a certain spot. Jaw relaxed and mouth slightly open. Acknowledgement: This Fact Fact was adapted with permission from a family information handout (The Blue Sheet) given to families of [facility]. References 1. Twycross R, Lichter I. The terminal phase. In: Natalio Fiore, Kristian PEREZ, Juli Ramos, eds. Neal Textbook of Palliative Medicine. 2nd ed. Neal, Maribell: [employer]; 1998. 2. Marcus J, Lamont C. Care of the dying patient: the last hours or days of life. BMJ. 2003; 326(6032):30-4. 3. George FD, naveen Holden CF, Pedro LL. Competency in End of Life Care: the last hours of living. J Palliat Med. 2003; 6(4):605-613. We also discussed that for patients at the end of life, oxygen delivered by a nasal cannula provides no additional symptomatic benefit for relief of refractory dyspnea in patients with life-limiting illness compared with room air: there's a point at which that the oxygen level gets so low that it's no longer compatible with life. By providing supplemental oxygen, the dying process will be unnecessarily prolonged. Family is in agreement and therefore we will plan to taper down the high flow nasal cannula and transition to nasal cannula; the use of less burdensome but more effective strategies such as comfort care meds, oscillating fan, massage, repositioning, etc. will also help contribute to relieving dyspnea at the end of life. (Fide AP, Kimberly CF, Ruba PA, et al. Effect of palliative oxygen versus room air in relief of breathlessness in patients with refractory dyspnoea: a double-blind, randomised controlled trial. Lancet. 2010;376(7303):784-793. doi:10.1016/[id number](37)60440-4) (3) Need for comfort care: Comfort care orders have been modified. I have increased the frequency of Dilaudid 0.5 mg IV to every 15 minutes as needed given patient's increasing symptoms and I have added Dilaudid 1 mg IV every 30 minutes as needed for very severe or terminal dyspnea. For her agitation, I have asked pharmacy to provide Haldol elixir which we will use 1 mg dripped into the buccal mucosa every 4 hours as needed, noting that patient has an unknown allergy to the lorazepam which makes it difficult to determine if this medication would be safe to use. I have also increased her glycopyrrolate to 0.4 mg IV every 4 hours as needed for secretion management and discontinued her telemetry. I reviewed the plan with nursing to taper down off the high flow nasal cannula and transition patient to nasal cannula oxygen. Opioids may be used to assist with the relief of dyspnea as needed. (4) Hypercapnic respiratory failure: (5) COPD (chronic obstructive pulmonary disease): (6) PAF (paroxysmal atrial fibrillation): (7) Combined systolic and diastolic congestive heart failure: (8) Sepsis: (9) Acute and chronic respiratory failure with hypoxia: (10) Acute on chronic combined systolic (congestive) and diastolic (congestive) heart failure: Plan Complex and refractory end-of-life symptom management: Orders modified, see discussion above. End-of-life care in progress, family updated-see above discussion. Palliative medicine will continue to follow this patient for end-of-life pain and symptom management. Sikhism and mino were reported to patient, who was proud of her role in her pentecostal especially with the choir. I discussed with family adding clerk checker visits to provide her and them with additional support and they excepted, noting that this was greatly appreciated. I have notified the small machine bindery operator of the same. I have updated primary team and discussed the plan of care with nursing. It is doubtful that patient will survive to discharge, I anticipate that she will in the hospital during this admissionshort anticipated survival of hours to days. Nata Ryan DNP Clinical Director, Palliative Medicine History of Present Illness Reason for Consultation: On 01/06/23 @ 16:18 Heidi Zuniga Wrote To Muriel Johnson Comfort Care Attending Physician: Heidi Zuniga DO History of Present Illness 77YO FEMALE WHO PRESENTED FOR ADMISSION 01/04/23 WITH: c/o worsening dyspnea, know COPD/on 2lpm NC at baseline, was on OP therapy with doxycycline for possible pneumonia at OSH prior to [facility] arrival. Her hypoxia was severe and required BiPAP (pH 7.2, hypercarbia PCO2 61.) CT non con Chest: +atelectasis with near collapse of LLL, no other acute findings Repeat ABG with improvement in CO2 to 55 Per admission note: "Suspect respiratory failure is multifactorial with significant atelectasis with near collapse of the left lower lobe, significant anemia of 6.5, hypercapnia." Patient also has acute on chronic renal failure and her sisters provided advanced directive which indicated patient does not desire dialysis. "Patient is severely ill, with guarded prognosis in the setting of acute hypoxic and hypercapnic respiratory failure, acute renal failure, suspected shock liver, sepsis, possible acute GI bleed with symptomatic anemia. Case was discussed at length with patient's , however patient's has some element of aphasia and dementia and I was directed to speak with patient's 3 sisters who share decision making in the event that she cannot make decisions for herself. Sisters provided information on patient's advanced directive to this hospital, which indicates patient would not want dialysis, intubation, chest compressions, cardioversion in the event that it should be necessary to prolong her life. This was discussed and confirmed with her sisters." Pt and family met with primary team and elected comfort care. Palliative Medicine has been consulted on this comfort care status patient for assistance with advanced/complex end of life symptom mgt needs. At the time of my evaluation, patient is lying in bed, lethargic and briefly arousable, will at times weakly answer questions but quickly drifts back. She is very weak. Increased respiratory effort is noted. Nursing reports there has been intermittent confusion and delirium. During my evaluation, her sister (an RN at [facility] preadmission testing) and her brother arrived. Allergies Allergy/AdvReac Type Severity Reaction Status Date / Time ciprofloxacin Allergy Unknown Unknown Verified 01/04/23 10:39 lorazepam Allergy Unknown Unknown Verified 01/04/23 10:39 Penicillins Allergy Unknown Unknown Verified 01/04/23 10:39 Home Medications Medication Instructions Recorded Confirmed Type acetaminophen 650 mg 650 mg PO Q8H PRN Pain 01/04/23 01/04/23 History tablet,extended release bisacodyl 5 mg tablet 15 mg PO HS 01/04/23 01/04/23 History buprenorphine 4 mg-naloxone 1 mg 2 film sublingual DAILY 01/04/23 01/04/23 History sublingual film (Suboxone) clonidine 0.1 mg/24 hr weekly 0 mg topical TID PRN Back Pain 01/04/23 01/04/23 History transdermal patch dicyclomine 20 mg tablet 20 mg PO TID PRN Indigestion 01/04/23 01/04/23 History diphenhydramine HCl 25 mg capsule 25 mg PO Q6H PRN Allergy Symptoms 01/04/23 01/04/23 History (Benadryl) docusate sodium 100 mg capsule 100 mg PO DAILY 01/04/23 01/04/23 History hydroxyzine pamoate 50 mg capsule 50 mg PO TID PRN Anxiety 01/04/23 01/04/23 History (Vistaril) loratadine 10 mg tablet (Claritin) 10 mg PO DAILY PRN Allergy Symptoms 01/04/23 01/04/23 History multivitamin 1 tab PO QAM 01/04/23 01/04/23 History promethazine 25 mg tablet 25 mg PO Q6H PRN Pain 01/04/23 01/04/23 History quetiapine 50 mg tablet (Seroquel) 75 mg PO HS 01/04/23 01/04/23 History trazodone 150 mg tablet 150 mg PO HS 01/04/23 01/04/23 History Patient History Medical History (Updated 01/06/23 @ 21:11 by Nata Ryan DNP) Anemia Atelectasis of left lung Atherogenic dyslipidemia Benign essential hypertension Chronic indwelling Gifford catheter Combined systolic and diastolic congestive heart failure COPD (chronic obstructive pulmonary disease) Encounter for end of life care Need for comfort care PAF (paroxysmal atrial fibrillation) Palliative care by specialist Type 2 diabetes mellitus Social History Smoking Status: Former smoker Second Hand Exposure: No; Do You Dip or Chew Tobacco: No; Hx Alcohol Use: No Hx Substance Use: No Preferred Language: Mongolian Communication Ability: Effective Beliefs That Will Affect Care: Denominational Current Living Situation: Alf Current Living Situation Comment: [place] Feels Safe at Home: Yes Safety Concerns: Feels Safe At This Time Assistive Devices: Glasses and Other Assistive Devices Comment: rahel Review of Systems Review of Systems: All systems reviewed & are unremarkable except as noted in Subjective and Other (fatigue, end of life) Physical Exam Physical Exam: Frail, chronically ill-appearing elderly female, somewhat restless and agitated. She is moaning and grimacing at times. There is respiratory distress noted with use of accessory muscles and abdominal breathing. Breath sounds are diminished, few crackles. No audible wheeze. There are few brief apneas approximately 5 to 7 seconds. She is tachycardic, mild JVD. Abdomen is softly distended. Bowel sounds present. + Gifford. There is generalized weakness. She is somewhat agitated and pulling at the bed linens. Occasionally she will raise her left arm up above her head. Her eyes will open to name and she will look at the speaker but then quickly drifts back. She is unable to follow simple commands. Skin is pale, cool and slightly diaphoretic. There is no gross cyanosis noted. There is bilateral lower extremity edema, mild. There is no mottling noted. Results & Data ([facility]) Vital Signs (Past 12 Hours) Vital Signs Temp Pulse Resp BP Pulse Ox O2 Del Method O2 Flow Rate 01/06/23 15:47 36.5 C 93 H 24 135/67 91 High Flow Nasal Cannula 30 01/06/23 15:10 101 H 22 94 High Flow Nasal Cannula 30 01/06/23 11:56 89/59 L 01/06/23 11:12 36.7 C 101 H 24 79/53 L 93 High Flow Nasal Cannula 30 FiO2 01/06/23 15:47 60 01/06/23 15:10 60 01/06/23 11:56 01/06/23 11:12 70 Laboratory Results the relevant data for this consult has been reviewed Diagnostic Findings the relevant data for this consult has been reviewed PG Care Time/CCT Total # of Minutes Spent Total Time Spent: 90 Total Time Spent with Patient: Total time spent is greater than 50% in coordination of care (as documented) at patient's floor/unit and/or counseling patient: I spent 90 minutes overall addressing this case: 10 in medical data review/discussion with referring provider(s) and/or preparation for the visit 30 in direct interaction with the patient and family 30 Advance Care Planning/Goals of Care discussions as detailed above in note (must be >16min) 10 in subsequent review and synthesis of assessment and plan - review with pharmacy re options for agitation and delirium mgt in context of 'unknown' ativan allergy 10 in communicating with other providers regarding the patient's case: primary team, nursing, pharmacy Prolonged Care Time Prolonged Care Time: Yes Advanced Care Planning 44060 Advanced Care Planning 30 [place] [address] IN/OBS CONSULT LVL 5,80M Patient Type New History Comprehensive Exam Comprehensive Medical Decision Making High Complexity Diagnoses Palliative care by specialist Z51.5 Encounter for end of life care Z51.5 Need for comfort care Hypercapnic respiratory failure J96.92 COPD (chronic obstructive pulmonary disease) J44.9 PAF (paroxysmal atrial fibrillation) I48.0 Combined systolic and diastolic congestive heart failure I50.40 Sepsis A41.9 Acute and chronic respiratory failure with hypoxia J96.21 Acute on chronic combined systolic (congestive) and diastolic (congestive) heart failure I50.43 Additional Codes Advanced Care Planning - 17561 Advanced Care Planning 30 Min: 72009 Advanced Care Planning 30 Min ([id number]) Prolonged Care Time - Prolonged Care Time: Yes ([id number])
--- NOTE | 2023-01-07 05:50 | Electrocardiogram Report ---
Test Reason : Blood Pressure : / mmHG Vent. Rate : 103 BPM Atrial Rate : 170 BPM P-R Int : 000 ms QRS Dur : 078 ms QT Int : 370 ms P-R-T Axes : 000 076 048 degrees QTc Int : 484 ms Poor data quality, interpretation may be adversely affected Atrial fibrillation with rapid ventricular response Low voltage QRS ST elevation consider inferior injury or acute infarct Abnormal ECG When compared with ECG of 05-JAN-2023 06:09, Nonspecific T wave abnormality has replaced inverted T waves in Inferior leads Confirmed by Ramirez Jonas ([id number]) on 01/07/2023 5:49:54 AM Referred By: [facility] Confirmed By:Ramirez Jonas
[2023-01-07] MEDS: HYDROmorphone INJ 0.5 MG/0.5 ML SYR IV PRN ×5 (07:17→16:11)
--- NOTE | 2023-01-07 08:35 | Pulmonology Progress Note ---
Date of Service January 07, 2023 Assessment & Plan (1) Acute respiratory failure: (2) Atelectasis of left lung: (3) Acute renal failure (ARF): Acute renal failure type: unspecified Qualified Code(s): N17.9 - Acute kidney failure, unspecified (4) PAF (paroxysmal atrial fibrillation): Plan IMPRESSION: 77-year-old female presenting with acute hypoxic respiratory failure in the setting of severe sepsis with multisystem failure. Family has elected to pursue comfort measures which is reasonable. Pulmonary will sign off. Call if questions. Admission and Anticipated Discharge Date Admission Date: January 04, 2023 Subjective Chart reviewed. After discussions with primary service and patient, they have elected to pursue comfort measures. Review of Systems Review of Systems: Deferred Physical Exam Physical Exam: deferred Results & Data Results & Data ([facility]) Vital Signs (Past 12 Hours) Vital Signs O2 Del Method O2 Flow Rate 01/07/23 07:20 High Flow Nasal Cannula 8 PG Care Time/CCT Total # of Minutes Spent Total Time Spent with Patient: Total time spent is greater than 50% in coordination of care (as documented) at patient's floor/unit and/or counseling patient: Coding Level of Care Code 75301 SUB INP/OBS CARE /25MIN Diagnoses Acute respiratory failure J96.00 Atelectasis of left lung J98.11 Acute renal failure (ARF) N17.9 Acute renal failure type: unspecified PAF (paroxysmal atrial fibrillation) I48.0
[2023-01-07] MEDS ORDERED: CEFEPIME 1,000 MG in SYRINGE 0 ML IV SCH (09:00)
--- NOTE | 2023-01-07 09:32 | Urology Progress Note ---
Date of Service January 07, 2023 Assessment & Plan (1) Nephrolithiasis: (2) Complicated UTI (urinary tract infection): Plan Complex patient with numerous chronic and acute issues Now on comfort measures No intervention at this time Gifford patent and draining - can maintain for comfort will sign off Admission and Anticipated Discharge Date Admission Date: January 04, 2023 Subjective Patient seen and examined at bedside this AM. She is resting in bed, arouses to her name. She appears more alert than yesterday, but was not interactive. Denies pain. Per chart review, she has been transitioned to comfort measures. Review of Systems Review of Systems: Unobtainable due to cognitive status Physical Exam Constitutional: + ill appearing and + obese Respiratory: + tachypneic high flow NC Cardiovascular: Extremities: + edema Gastrointestinal (Abdomen): Percussion/Palpation: abdomen soft; abdomen nontender Psychiatric: Awake, appears more alert than yesterday, but not interactive. Genitourinary: Gifford patent and draining clear yellow urine Results & Data ([facility]) Vital Signs (Past 12 Hours) Vital Signs O2 Del Method O2 Flow Rate 01/07/23 07:20 High Flow Nasal Cannula 8 PG Care Time/CCT Total # of Minutes Spent Total Time Spent with Patient: Total time spent is greater than 50% in coordination of care (as documented) at patient's floor/unit and/or counseling patient: Coding Level of Care Code 73614 SUB INP/OBS CARE 25MIN Diagnoses Nephrolithiasis N20.0 Complicated UTI (urinary tract infection) N39.0
--- NOTE | 2023-01-07 09:53 | Nephrology Progress Note ---
Date of Service January 07, 2023 Assessment & Plan (1) Acute on chronic renal failure: Plan: Non-oliguric. ABDIAS attributed to decreased EAV in setting of sepsis/hemodynamic instability with superimposed ATN. Possible component of bladder outlet obstruction and proximal ureterolithiasis. Baseline creatinine 1.6-1.8 mg/dL. Dialysis not to be considered part of care plan based on advanced directive. Patient has transitioned to comfort measures only. I have nothing more to add from a nephrology perspective at this time and will sign-off. Please call with questions or concerns. (2) Combined systolic and diastolic congestive heart failure: Plan: Provided furosemide as needed today to encourage urine output. (3) Chronic indwelling Gifford catheter: Plan: Maintain Gifford. Admission and Anticipated Discharge Date Admission Date: January 04, 2023 Subjective Resting comfortably in bed this morning. Awake but not oriented. Denies pain. No shortness of breath reported. Minimal answers to questions. Breathing labored slightly on high flow nasal canula. Transitioned to DITCH DIGGER. I discussed the plan of care with Dr. Zuniga yesterday. Review of Systems Review of Systems: Unobtainable due to reduced consciousness Physical Exam Constitutional: + ill appearing, + obese and + frail appearing Eyes: + anicteric sclerae; pupils not irregular Neck: normal visual inspection and trachea midline Respiratory: + tachypneic Auscultation: + diminished lung sounds, + rales and + rhonchi Cardiovascular: Rate/Rhythm: + irregularly irregular Heart Sounds: + murmur Vessels: + JVD Extremities: + edema Gastrointestinal (Abdomen): Inspection/Auscultation: + abdomen distended and + hypoactive bowel sounds Percussion/Palpation: abdomen soft and + tympanic to percussion; abdomen not rigid Musculoskeletal: Extremities: no cyanosis and no clubbing Skin: + turgor decreased and + ecchymosis; no jaundice Neurologic: Speech / Cognition: + abnormal cognition Motor/Sensory: no fasciculations and no asterixis Results & Data ([facility]) Vital Signs (Past 12 Hours) Vital Signs O2 Del Method O2 Flow Rate 01/07/23 07:20 High Flow Nasal Cannula 8 Laboratory Results Laboratory Results - last 24 hr 01/06/23 11:39 POC Glucose 204 H PG Care Time/CCT Total # of Minutes Spent Total Time Spent with Patient: Total time spent is greater than 50% in coordination of care (as documented) at patient's floor/unit and/or counseling patient: Coding Level of Care Code 44045 SUB INP/OBS CARE Diagnoses Acute on chronic renal failure N17.9; N18.9 Combined systolic and diastolic congestive heart failure I50.40 Chronic indwelling Gifford catheter Z97.8
[2023-01-07] MEDS ORDERED: LORazepam 2 MG/1 ML VIAL IV PRN (13:32)
[2023-01-07] MEDS ORDERED: HALOPERIDOL ORAL SOLN 2 MG/ML PO PRN (13:49)
[2023-01-07] MEDS: GLYCOPYRROLATE 0.2 MG/ML VIAL IV PRN (15:30)
[2023-01-07] MEDS ORDERED: SCOPOLAMINE 1 MG TDSY TD SCH (16:00)
[2023-01-07] MEDS: HYDROmorphone INJ 1 MG/ML SYRINGE IV PRN ×3 (17:10→18:43)
[2023-01-07] MEDS: CHECK SCOPOLAMINE PATCH PLACEMENT SCH ×2 (17:29→23:30)
[2023-01-07] MEDS ORDERED: HYDROmorphone BOLUS from BAG IV PRN (18:50)
[2023-01-07] MEDS ORDERED: HYDROmorphone/NSS 100 MG/100 ML BAG IV SCH (19:00)
--- NOTE | 2023-01-07 19:19 | Hospitalist Progress Note ---
Date of Service January 07, 2023 Assessment & Plan (1) Need for comfort care: Plan: Remains on comfort care pathway. Patient has been requiring frequent IV prn dilaudid to maintain comfort and to assist with severe increased work of breathing. Late in the day she needed three 1mg doses of IV dilaudid over a short period of time for her worsening pulmonary status. Thus, transitioned prn dilaudid to dilaudid infusion. Start drip - based on most recent requirements - at 1mg/hr. Titrate by 0.2mg increments q30 minutes for optimal comfort. Add scopolamine for secretions. Cont robinul. Appreciate palliative care team assistance & recs. Called & spoke with pt's sister, Ania; gave update. Ania confirmed that Tasneem's is quite ill. Also, Tasneem & her never had children. (2) Palliative care patient: (3) Acute and chronic respiratory failure with hypoxia: Plan: chronic resp failure - on 2 L NC O2. acute component - 2nd to COPD exacerbation, LLL pneumonia, +/- decompensated CHF. required HFNC and/or BIPAP during this stay prior to transition to comfort care pathway. (4) Hypercapnic respiratory failure: Plan: in setting of #3 required BIPAP early in stay (5) Acute on chronic renal failure: Plan: 12/16/2022 creatinine of 1.8 admission Cr 4.8 acute renal failure - multifactorial including obstruction (R kidney stone with hydronephrosis on same side), ATN, etc. no Rx transitioned to comfort care no further BMPs (6) Hyperkalemia: Plan: Potassium of 6.2 on admission 2nd to ABDIAS had resolved, but no further BMPs due to #1 (7) Metabolic acidosis: (8) Acute GI bleeding: Plan: Suspected, Had positive Hemoccult per ER provider at time of presentation Hgb 6.5 on admit with BUN 130s --> s/p 2u PRBCs early in admission no further CBCs (9) Sepsis: Plan: 2nd UTI +/- LLL pneumonia abx have been stopped (10) Atrial fibrillation with RVR: (11) Shock liver: Plan: present on admission no further LFT checks (12) Symptomatic anemia: (13) Combined systolic and diastolic congestive heart failure: Plan: may have contributed to acute resp failure (14) Nephrolithiasis: Plan: R-sided stone urology had been consulted but no Rx --> transitioned to comfort care measures only (15) Complicated UTI (urinary tract infection): Plan: 2nd e.coli + enterococcus abx have been d/c --> transitioned to comfort care (16) COPD (chronic obstructive pulmonary disease): Plan: with O2 dependency at baseline - 2 L NC (17) LLL pneumonia: Plan: treated for such early in the stay abx d/c --> transitioned to comfort care measures only Plan sister Ania updated by phone this evening Admission and Anticipated Discharge Date Admission Date: January 04, 2023 Subjective patient only briefly opened his eyes to her name being called kept eyes open for about 5-10 sec shook her head yes that she was struggling to breathe unable to tell me if in any pain during my visit she had significant increased work of breathing with tachypnea, retractions Review of Systems Review of Systems: Unobtainable due to reduced consciousness Physical Exam Physical Exam: gen - obese, altered/lethargic, increased work of breathing, noisy breathing due to excess secretions neck - no JVD mouth - MM dry heart - tachy, irregular, s1 s2 lungs - tachypnea, subcostal retractions, wheezes b/l, suprasternal retractions abd - mildly distended, BS+, no apparent tenderness ext - warm, pulses 2+ b/l Results & Data Results & Data ([facility]) Vital Signs (Past 12 Hours) Vital Signs O2 Del Method O2 Flow Rate 01/07/23 17:44 Nasal Cannula 6 01/07/23 17:34 Nasal Cannula 01/07/23 07:20 High Flow Nasal Cannula 8 PG Care Time/CCT Total # of Minutes Spent Total Time Spent with Patient: Total time spent is greater than 50% in coordination of care (as documented) at patient's floor/unit and/or counseling patient: Coding Level of Care Code 59947 SUB INP/OBS CARE 11/20MIN Diagnoses Need for comfort care Palliative care patient Z51.5 Acute and chronic respiratory failure with hypoxia J96.21 Hypercapnic respiratory failure J96.92 Acute on chronic renal failure N17.9; N18.9 Hyperkalemia E87.5 Metabolic acidosis E87.20 Acute GI bleeding K92.2 Sepsis A41.9 Atrial fibrillation with RVR I48.91 Shock liver K72.00 Symptomatic anemia D64.9 Combined systolic and diastolic congestive heart failure I50.40 Nephrolithiasis N20.0 Complicated UTI (urinary tract infection) N39.0 COPD (chronic obstructive pulmonary disease) J44.9 LLL pneumonia J18.9
[2023-01-07 21:10] LABS: A calco-baum cmplx NotReported Not Detected (NotDetected); Bact fragilis Not Reported Not Detected (NotDetected); C auris Not Reported Not Detected (NotDetected); Calbicans Not Reported Not Detected (NotDetected); Candida glabrata Not Reported Not Detected (NotDetected); Candida krusei Not Reported Not Detected (NotDetected); Cneoformans/gatti Not Reported Not Detected (NotDetected); Cparapsilosis Not Reported Not Detected (NotDetected); Ctropicalis Not Reported Not Detected (NotDetected); E cloacae compx Not Reported Not Detected (NotDetected); Efaecalis Not Reported Not Detected (NotDetected); Efaecium Not Reported Not Detected (NotDetected); Enterobacterales Not Reported Not Detected (NotDetected); Escherichia coli Not Reported Not Detected (NotDetected); H influenzae Not Reported Not Detected (NotDetected); K aerogenes Not Reported Not Detected (NotDetected); Koxytoca Not Reported Not Detected (NotDetected); Kpneumoniae grp Not Reported Not Detected (NotDetected); Lmonocyt Not Reported Not Detected (NotDetected); N meningitidis Not Reported Not Detected (NotDetected); P aeruginosa Not Reported Not Detected (NotDetected); Proteus spp Not Reported Not Detected (NotDetected); Salmonella spp Not Reported Not Detected (NotDetected); Smarcescens Not Reported Not Detected (NotDetected); Staph lugdunensis Not Reported Not Detected (NotDetected); Staph spp. Not Reported Not Detected (NotDetected); Staphaureus Not Reported Not Detected (NotDetected); Staphepi Not Reported Not Detected (NotDetected); Stenmaltophilia Not Reported Not Detected (NotDetected); Strep agal(GrpB) Not Reported Not Detected (NotDetected); Strep pneum Not Reported Not Detected (NotDetected); Strep pyog (GrpA) Not Reported Not Detected (NotDetected); Strep spp Not Reported Not Detected (NotDetected)
[2023-01-08] MEDS: GLYCOPYRROLATE 0.2 MG/ML VIAL IV PRN ×4 (00:10→13:20)
[2023-01-08] MEDS: CHECK SCOPOLAMINE PATCH PLACEMENT SCH ×2 (07:22→17:07)
--- NOTE | 2023-01-08 16:08 | Death Pronouncement Note ---
Date of Service January 08, 2023 Pronouncement Note Admission Date January 04, 2023 Date and Time of Date of : 01/08/23 Time of : 15:41 Additional Data Confirmation of : no pulse, no respirations, no heart sounds and pupils fixed and dilated Pronouncement Performed By: Attending Physician Family: contacted Attending/PCP notified?: Yes Attending physician: Sherwin Noriega Was code activated?: No Autopsy requested?: No light out examiner notified?: No Coding Diagnoses
--- NOTE | 2023-01-08 16:09 | Discharge Summary ---
Date of Service January 08, 2023 Admission HPI Per Admitting Provider 77-year-old female past medical history significant for COPD on 2 L nasal cannula at baseline, paroxysmal A-fib on chronic anticoagulation, chronic indwelling Gifford catheter, history of systolic/diastolic CHF with no previous echocardiograms on file, DM 2 (no known medications per home list), anemia with baseline hemoglobin around 9 presented to the ER from her side for worsening difficulty breathing. In the days leading up to this admission, patient was having some dyspnea and there was concern for pneumonia, patient was put on doxycycline without improvement. In the ER patient was noted to be hypoxic with increased oxygen needs, ultimately requiring BiPAP with good relief of dyspnea. On admission lab work she was noted to have a WBC count of 19.19, hemoglobin 6.5, Hemoccult positive per ER provider, platelets 570, POC ABG with hypercapnia and pH of 7.2, creatinine 4.8 with an elevated potassium of greater than 6, hyponatremia, elevated AST/ALT. Initially, Gifford was not having any output, this improved with replacing Gifford. CT chest performed which showed atelectasis with near collapse of the left lower lobe. CTAP showed right proximal ureteral stone with mild hydroureter. Head CT did not show any acute intracranial hemorrhage or skull fracture, but did show scalp swelling in the left frontal soft tissues. Hospitalist service was consulted for admission for acute renal failure, hyperkalemia, symptomatic anemia, and acute hypoxic respiratory failure Patient is otherwise confused and not answering questions well at this time. I spoke with patient's 3 sisters, who reports that in general she is usually alert and oriented to self and situation, often pleasantly confused, is wheelchair- bound and her helps her with all of her ADLs. Discharge Data Allergies Allergy/AdvReac Type Severity Reaction Status Date / Time ciprofloxacin Allergy Unknown Unknown Verified 01/04/23 10:39 lorazepam Allergy Unknown Unknown Verified 01/04/23 10:39 Penicillins Allergy Unknown Unknown Verified 01/04/23 10:39 Consultations 01/04/23 06:59 ED Decision to Admit Stat 01/04/23 09:04 Consult Cardiology Stat Consult Gastroenterology Routine Consult Nephrology Stat Consult Urology Routine 01/05/23 09:21 Consult Pulmonology Routine 01/05/23 20:55 Consult Lockstitch Front Edge Tape Sewer Routine 01/06/23 16:12 Consult Palliative Care Routine Ordered Studies 01/04/23 06:06 CT abd pelvis wo con Stat CT chest diagnostic wo con Stat CT head/brain wo con Stat 01/05/23 20:56 US point of care ultrasound Routine Hospital Course (1) Need for comfort care: Remains on comfort care pathway. Patient has been requiring frequent IV prn dilaudid to maintain comfort and to assist with severe increased work of breathing. Late in the day she needed three 1mg doses of IV dilaudid over a short period of time for her worsening pulmonary status. Thus, transitioned prn dilaudid to dilaudid infusion. Start drip - based on most recent requirements - at 1mg/hr. Titrate by 0.2mg increments q30 minutes for optimal comfort. Add scopolamine for secretions. Cont sonny. Appreciate palliative care team assistance & recs. Called & spoke with pt's sister, Ania; gave update. Ania confirmed that Tasneem's is quite ill. Also, Tasneem & her never had children. (2) Palliative care patient: (3) Acute and chronic respiratory failure with hypoxia: chronic resp failure - on 2 L NC O2. acute component - 2nd to COPD exacerbation, LLL pneumonia, +/- decompensated CHF. required HFNC and/or BIPAP during this stay prior to transition to comfort care pathway. (4) Hypercapnic respiratory failure: in setting of #3 required BIPAP early in stay (5) Acute on chronic renal failure: 12/16/2022 creatinine of 1.8 admission Cr 4.8 acute renal failure - multifactorial including obstruction (R kidney stone with hydronephrosis on same side), ATN, etc. no Rx transitioned to comfort care no further BMPs (6) Hyperkalemia: Potassium of 6.2 on admission 2nd to ABDIAS had resolved, but no further BMPs due to #1 (7) Metabolic acidosis: (8) Acute GI bleeding: Suspected, Had positive Hemoccult per ER provider at time of presentation Hgb 6.5 on admit with BUN 130s --> s/p 2u PRBCs early in admission no further CBCs (9) Sepsis: 2nd UTI +/- LLL pneumonia abx have been stopped (10) Atrial fibrillation with RVR: (11) Shock liver: present on admission no further LFT checks (12) Symptomatic anemia: (13) Combined systolic and diastolic congestive heart failure: may have contributed to acute resp failure (14) Nephrolithiasis: R-sided stone urology had been consulted but no Rx --> transitioned to comfort care measures only (15) Complicated UTI (urinary tract infection): 2nd e.coli + enterococcus abx have been d/c --> transitioned to comfort care (16) COPD (chronic obstructive pulmonary disease): with O2 dependency at baseline - 2 L NC (17) LLL pneumonia: treated for such early in the stay abx d/c --> transitioned to comfort care measures only Plan sister Ania updated by phone this evening Discharge Plan Discharge Items Reason For Visit: ACUTE ON CHRONIC RESP FAILURE,?GI BLEED,STEMI,ARF Follow-up/Referrals: Tj Murphy [Primary Care Provider] - Medications and DC Order Prescriptions: No Action multivitamin Tablet 1 tab PO QAM clonidine 0.1 mg/24 hr Patch Weekly 0 mg topical TID PRN (Reason: Back Pain) hydroxyzine pamoate [Vistaril] 50 mg Capsule 50 mg PO TID PRN (Reason: Anxiety) acetaminophen 650 mg Tablet Extended Release 650 mg PO Q8H PRN (Reason: Pain) dicyclomine [Bentyl] 20 mg Tablet 20 mg PO TID PRN (Reason: Indigestion) diphenhydramine HCl [Benadryl] 25 mg Capsule 25 mg PO Q6H PRN (Reason: Allergy Symptoms) trazodone 150 mg tablet 150 mg PO HS promethazine 25 mg Tablet 25 mg PO Q6H PRN (Reason: Pain) docusate sodium 100 mg capsule 100 mg PO DAILY loratadine [Claritin] 10 mg Tablet 10 mg PO DAILY PRN (Reason: Allergy Symptoms) bisacodyl 5 mg Tablet 15 mg PO HS quetiapine [Seroquel] 50 mg Tablet 75 mg PO HS buprenorphine-naloxone [Suboxone] 4-1 mg Film 2 film SUBLINGUAL DAILY Rx Instructions: Started yesterday. Take 4mg BID then 2mg BID for 3 doses then 1mg BID FOR 3 doses then 1mg Daily for 2 doses Krames/Other Patient Handouts: Managing Type 2 Diabetes Admission Data Admit Date/Time: 01/04/23 09:04 Attending Provider: Sherwin Noriega Admit Provider: Heidi Zuniga Primary Care Provider: Tj Murphy Other Providers: Yoshi Nicolas ; Rob Jacobson ; Eliecer Ruby ; Vamsi Trinh ; Ari Almanzar Jr ; Muriel Johnson Coding Diagnoses Need for comfort care Palliative care patient Z51.5 Acute and chronic respiratory failure with hypoxia J96.21 Hypercapnic respiratory failure J96.92 Acute on chronic renal failure N17.9; N18.9 Hyperkalemia E87.5 Metabolic acidosis E87.20 Acute GI bleeding K92.2 Sepsis A41.9 Atrial fibrillation with RVR I48.91 Shock liver K72.00 Symptomatic anemia D64.9 Combined systolic and diastolic congestive heart failure I50.40 Nephrolithiasis N20.0 Complicated UTI (urinary tract infection) N39.0 COPD (chronic obstructive pulmonary disease) J44.9 LLL pneumonia J18.9
--- NOTE | 2023-01-09 01:38 | Palliative Care Progress Note ---
Date of Service January 08, 2023 Assessment & Plan (1) Palliative care by specialist: Plan: Patient is actively dying. anticipated survival is hours. (2) Encounter for end of life care: Plan: Dilaudid infusion titrated per protocol robinul for secretions (3) Atelectasis of left lung: (4) Respiratory failure: (5) COPD (chronic obstructive pulmonary disease): Plan ACtively dying resp failure pt, on comfort care requiring escalation to dilaudid infusion for severe resp distress and air hunger. plan of care remains comfort. discussed with nursing, no new med changes. Nata Ryan DNP Clinical Director, Palliative Medicine Admission and Anticipated Discharge Date Admission Date: January 04, 2023 Subjective remains on comfort care resp distress worsened and needed dilaudid infusion, nursing reports they have b een using prn dosing and titrating dilaudid infusion per protocol to improve pt comfort secretions remain an issue but have improved with transderm scop as well as consistent robinul administration. pt resting in bed, mod distress at times, at times moaning/grimacing with furrowed brow Review of Systems Review of Systems: Unobtainable due to reduced consciousness Physical Exam Physical Exam: Frail, chronically ill-appearing elderly female, +resp effort increased, moderately restless and agitated. She is moaning/grimacing at times, +furrowed brow. INcreased respiratory distress noted with use of accessory muscles and abdominal breathing. Breath sounds are diminished, few crackles. No audible wheeze. There are apneas approximately 40+ seconds. She is tachycardic, mild JVD. Abdomen is softly distended. Bowel sounds present. + Gifford. There is generalized weakness. She does not respond to verbal or physical stimuli. Skin is pale, cool, +mottling, +cyanotic changes. +BLE edema. PG Care Time/CCT Total # of Minutes Spent Total Time Spent: 50 Total Time Spent with Patient: Total time spent is greater than 50% in coordination of care (as documented) at patient's floor/unit and/or counseling patient: Coding [place] [address] SUB INP/OBS CARE 3/50MIN Patient Type Established History Detailed Exam Comprehensive Medical Decision Making Moderate Complexity Diagnoses Palliative care by specialist Z51.5 Encounter for end of life care Z51.5 Atelectasis of left lung J98.11 Respiratory failure J96.01; J96.02; J96.02 Chronicity: acute Respiratory failure complication: hypoxia and hypercapnia COPD (chronic obstructive pulmonary disease) J44.9 (4) Respiratory failure Chronicity: acute Respiratory failure complication: hypoxia and hypercapnia Qualified Code(s): J96.01 - Acute respiratory failure with hypoxia; J96.02 - Acute respiratory failure with hypercapnia; J96.02 - Acute respiratory failure with hypercapnia
== END 2023-01-08 18:48 | disposition expired | DRG 871 ==
LOC: ED 03:39 → 2S 09:04 → SUATTDRO 09:04 → 2S 11:00 → 3E 01-06 19:11